=== PATIENT | female | born 1975 | race Caucasian/White ===

== ENCOUNTER 2018-04-04 17:55 | Emergency (ER) | payer OTHER, MEDICAID, SELFPAY ==
[2018-04-04 18:00] VITALS: PULSE 138; RESP 2; TEMP 37.4; O2SAT 66
[2018-04-04 18:16] VITALS: BP 117/76; PULSE 101
[2018-04-04] MEDS: cloNIDine 0.1 MG TABLET 0.2 MG PO (18:16)
[2018-04-04] MEDS: NALOXONE 1 MG/ML SYRINGE 4 MG IV (18:16)
[2018-04-04] MEDS: NALOXONE 0.4 MG/ML VIAL NASAL (18:16)
--- NOTE | 2018-04-04 18:16 | ED_ITS ---
HPI - Overdose General Chief Complaint: Unresponsive Stated Complaint: POSSIBLE OD Time Seen by Provider: 04/04/18 18:12 Mode of arrival: wheelchair Limitations: physical limitation History of Present Illness HPI Narrative: patient is a 43-year-old female dropped off by friends at the door with decreased responsiveness and not breathing. Known Heroin user. she responds to of 4 mg of IV Narcan. Initially nasal Narcan was tried with minimal success. Now awake and alert. Denies any intentional overdose. She actually is set to go start Suboxone treatment tomorrow. She denies using any more than usual. She is grateful and appreciative and cooperative. No complaints at this time. MD complaint: accidental overdose Related Data Previous Rx's Medication Instructions Recorded clonidine HCl 0.1 mg PO BID PRN #10 tab 04/04/18 ondansetron HCl [Zofran] 4 mg PO Q6-8H PRN #10 tab 04/04/18 Allergies Allergy/AdvReac Type Severity Reaction Status Date / Time No Known Drug Allergies Allergy Verified 04/04/18 18:11 Review of Systems Review of Systems All systems reviewed & are unremarkable except as noted in HPI and below Constitutional Denies chills, Denies fever(s), Denies lethargy and Denies weakness Cardiovascular Denies chest pain, Denies irregular heart rhythm, Denies lightheadedness, Denies palpitations, Denies dyspnea, Denies dyspnea on exertion and Denies orthopnea Respiratory Denies cough, Denies dyspnea, Denies dyspnea on exertion and Denies wheezing Gastrointestinal Gastrointestinal: Reports nausea Genitourinary Denies hematuria, Denies flank pain, Denies urinary incontinence and Denies urinary urgency Musculoskeletal Denies back pain, Denies muscle weakness, Denies numbness and Denies tingling Neurologic Denies numbness, Denies tingling and Denies weakness Psychiatric Denies suicidal ideation Endocrine Denies palpitations Allergic/Immunologic Denies wheezing [facility] Medical History Heroin abuse (Acute) Social History substance use type: heroin and IV drugs Exam Initial Vital Signs Initial Vital Signs: Vital Signs Temperature 99.4 F 04/04/18 18:00 Pulse Rate 138 H 04/04/18 18:00 Respiratory Rate 2 L 04/04/18 18:00 Pulse Oximetry 66 L 04/04/18 18:00 Const General: ill appearing Nutritional Appearance: average body habitus Other: not responsive to pain HENMT Head: normal to inspection and normocephalic Eyes Pupils: pinpoint bilaterally Neck Neck: normal visual inspection Chest Chest: normal inspection of the chest Resp Effort & Inspection: decreased respiratory effort and not labored Auscultation: clear to auscultation bilaterally Skin General: No pallor Neuro General: obtunded Pupils: Pinpoint: bilateral Other: decreased gag reflex minimal responsive to pain Extrem General: normal to inspection Right upper extremity: normal to inspection Left upper extremity: normal to inspection Left lower extremity: normal to inspection Course Orders Ordered: Discontinued Medications Clonidine HCl (Catapres) 0.2 mg PO NOW ONE Stop: 04/04/18 18:14 Last Admin: 04/04/18 18:16 Dose: 0.2 mg Sodium Chloride (Normal Saline 0.9%) 1,000 mls @ 1,000 mls/hr IV CONT SILVANO Last Infusion: 04/04/18 20:00 Dose: 0 mls/hr Admin: 04/04/18 19:03 Dose: 1,000 mls/hr Sodium Chloride (Normal Saline 0.9%) 1,000 mls @ 1,000 mls/hr IV BOLUS ONE Stop: 04/04/18 19:13 Last Infusion: 04/04/18 19:04 Dose: 1,000 mls/hr Infusion: 04/04/18 19:03 Dose: 0 mls/hr Admin: 04/04/18 18:17 Dose: 1,000 mls/hr Naloxone HCl (Narcan) 0.4 mg NASAL NOW ONE Stop: 04/04/18 18:13 Last Admin: 04/04/18 18:16 Dose: 0.4 mg Naloxone HCl (Narcan) 4 mg IV NOW ONE Stop: 04/04/18 18:13 Last Admin: 04/04/18 18:16 Dose: 4 mg Ondansetron HCl (Zofran) 4 mg IV NOW ONE Stop: 04/04/18 18:14 Last Admin: 04/04/18 18:17 Dose: 4 mg MDM - Overdose Differential Diagnosis Likely drug overdose Medical Records Attestation: I reviewed the patient's medical records. Lab Data Attestation: I reviewed the patient's lab results. Result diagrams: 04/04/18 18:20 04/04/18 18:20 Lab Results 07/23/18 07/23/18 07/23/18 Range/Units 16:35 18:20 18:20 WBC 12.7 H (4.5-11.0) X10^3/uL RBC 4.68 (4.0-5.2) X10^6/uL Hgb 13.5 (12.0-16.0) g/dL Hct 40.7 (36-46) % MCV 87.0 (80-100) fL MCH 28.8 (26-34) PG MCHC 33.1 (30-36) % RDW 14.2 (11.6-14.8) % Plt Count 378 (150-400) X10^3/uL Neut % (Auto) 45.4 L (50-75) % Lymph % (Auto) 37.3 (25-40) % Mcclain % (Auto) 14.0 (3-14) % Eos % (Auto) 2.5 (2-4) % Baso % (Auto) 0.8 (0-2) % Neut # (Auto) 5700 (2406-7084) /uL Sodium 144 (137-145) mmol/L Potassium 4.2 (3.4-5.1) mmol/L Chloride 106 (98-107) mmol/L Carbon Dioxide 27 (22-32) mmol/L BUN 18 H (7-17) mg/dL Creatinine 0.70 (0.52-1.04) mg/dL Estimated GFR > 60.0 (>60) mL/min BUN/Creatinine Ratio 25.7 H (6-22) Glucose 185 H (70-100) mg/dL Lactate 1.3 (0.7-2.1) mmol/L Calcium 9.0 (8.4-10.2) mg/dL Total Bilirubin 0.7 (0.2-1.3) mg/dL Conjugated Bilirubin 0.0 (0.0-0.3) md/dL Unconjugated Bilirubin 0.3 (0.0-1.1) mg/dL AST 39 H (14-36) IU/L ALT 28 (9-52) IU/L Alkaline Phosphatase 70 (38-126) U/L Total Protein 6.9 (6.3-8.2) g/dL Albumin 3.9 (3.5-5.0) g/dL Globulin 3.0 (1.7-4.1) g/dL Albumin/Globulin Ratio 1.3 (1.0-2.8) Salicylates < 1.0 (<20) mg/dL Acetaminophen < 10 L (10-30) ug/mL Ethyl Alcohol < 10 mg/dL MDM Narrative Medical decision making narrative: patient initially had reaction to Narcan becoming very anxious diaphoretic and tachycardic. She is given Zofran and clonidine which does help significantly. She is watched in the ED for 2 and 0.5 hr no respiratory depression. Mother is at bedside. She is scheduled to start Suboxone tomorrow. Discharge Plan Departure Patient Disposition: Home, Self-Care Clinical Impression: Opioid overdose Discharge Date/Time: 04/04/18 20:22 Interventions: ED Discharge Assessment Last Done: 04/04/18 20:21 Instructions: DI for Drug Overdose in Adults Activity Restrictions/Additional Instructions: *You have been diagnosed with accidental overdose *What to do: stop using Heroin *Continue to take medications as directed - clonidine twice a day if needed for anxiety and withdrawal symptoms - Zofran every 6-8 hours if needed for nausea vomiting *Follow up with your primary care provider in 2-3 days, go to clinic as previously arranged tomorrow *Return to ER if you should have any new, worsening or concerning symptoms Prescriptions: New clonidine HCl 0.1 mg tablet 0.1 mg PO BID PRN (Reason: anxiety) Qty: 10 RF: 0 ondansetron HCl [Zofran] 4 mg tablet 4 mg PO Q6-8H PRN (Reason: nausea and vomiting) Qty: 10 RF: 0 Referrals: [facility] [Outside] [facility] [Outside]
[2018-04-04] MEDS: ONDANSETRON 4 MG/2 ML INJ IV (18:17)
[2018-04-04] MEDS: SODIUM CHLORIDE 0.9% 1,000 ML 1000 ML IV ×2 (18:17→19:03)
[2018-04-04 18:28] LABS: Add Manual Diff / Slide Review NO; Basophils Percent Auto 0.8 % (0-2); Eosinophils Percent Auto 2.5 % (2-4); Hematocrit 40.7 % (36-46); Hemoglobin 13.5 g/dL (12.0-16.0); Lymphocytes Percent Auto 37.3 % (25-40); Mean Corpuscular HGB Conc 33.1 % (30-36); Mean Corpuscular Hemoglobin 28.8 PG (26-34); Neutrophils Absolute Auto 5700 /uL (3000-5900); Neutrophils Percent Auto 45.4 % (50-75); Platelet Count 378 X10^3/uL (150-400); Red Blood Cell Count 4.68 X10^6/uL (4.0-5.2); Red Cell Distribution Width 14.2 % (11.6-14.8); White Blood Cell Count 12.7 X10^3/uL (4.5-11.0)
[2018-04-04 18:33] LABS: Acetaminophen < 10 ug/mL (10-30); Alanine Aminotransferase 28 IU/L (9-52); Albumin 3.9 g/dL (3.5-5.0); Albumin Globulin Ratio 1.3 (1.0-2.8); Alkaline Phosphatase 70 U/L (38-126); Aspartate Aminotransferase 39 IU/L (14-36); BUN Creatinine Ratio 25.7 (6-22); Bilirubin Total 0.7 mg/dL (0.2-1.3); Bilirubin Unconjugated 0.3 mg/dL (0.0-1.1); Blood Urea Nitrogen 18 mg/dL (7-17); Carbon Dioxide 27 mmol/L (22-32); Chloride 106 mmol/L (98-107); Estimated Glomerular Filt Rate > 60.0 mL/min (>60); Ethanol (ETOH) < 10 mg/dL; Glucose 185 mg/dL (70-100); HEMOLYSIS 15 (0-50); Potassium 4.2 mmol/L (3.4-5.1); Sodium 144 mmol/L (137-145); Total Protein 6.9 g/dL (6.3-8.2)
[2018-04-04 18:43] LABS: Salicylate < 1.0 mg/dL (<20)
[2018-04-04 18:51] VITALS: BP 109/76; PULSE 86; RESP 18; O2SAT 99
[2018-04-04 18:55] LABS: Lactate (Lactic Acid) 1.3 mmol/L (0.7-2.1)
[2018-04-04 20:07] VITALS: BP 100/53; PULSE 87; RESP 22; O2SAT 100
--- NOTE | 2018-04-04 20:11 | PC.NURSE ---
PT GIVEN INSTRUCTIONS NOT TO HAVE ANYTHING BY MOUTH UNTIL CLEARED BY PROVIDER TO DO SO. PT EXPLAINED WE ARE WAITING ON LAB RESULTS TO COME BACK. PT REQUESTED SPONGE TO WET MOUTH. PT GIVEN SPONGE AND CUP WITH WATER. PT DRANK WATER FROM CUP. PROVIDER AWARE.
== END 2018-04-04 20:22 | disposition home or self-care (01) ==
PROVIDERS: Emergency Provider Emergency Medicine
DX: T40.2X1A Poisoning by other opioids, accidental (unintentional), initial encounter (principal)
CPT/HCPCS: 36415; 36591; 80053; 80076; 80320; 80329; 83605; 85025; 96361; 96374; 96375; 99285; G0480; J2310; J2405

== ENCOUNTER 2018-04-08 10:42 | Emergency (ER) | payer OTHER, MEDICAID, SELFPAY ==
[2018-04-08 10:55] VITALS: BP 127/85; PULSE 77; RESP 20; TEMP 37.2; O2SAT 97; BMI 28.8
--- NOTE | 2018-04-08 11:19 | ED_ITS ---
HPI - Nausea/Vomiting/Diarrhea General Chief complaint: Nausea/Vomiting/Diarrhea Stated complaint: OPIOD OD FEW DAYS AGO, SICK SINCE THEN Time Seen by Provider: 04/08/18 10:57 Source: patient Mode of arrival: ambulatory Limitations: no limitations History of Present Illness HPI Narrative: Patient is a 43-year-old female here for evaluation of upper respiratory symptoms, sinus congestion and cough for the past several days. She states that all this started after she had an overdose episode with heroin and received ?massive doses ?of intranasal Narcan. She states since then she has had sinus congestion and a cough and wheezing. The chest pain she describes is from the coughing. Also has had some nausea and vomiting. Does have an albuterol inhaler at home which she has been using with some improvement. Related Data Home Medications Medication Instructions Recorded Confirmed Mucinex 1 tab PO .ONCE 04/08/18 04/08/18 albuterol sulfate [ProAir HFA] 1 puff INHALATION Q6H PRN 04/08/18 04/08/18 clobetasol 1 applic TOPICAL DAILY 04/08/18 04/08/18 clonidine HCl 1 tab PO BID PRN 04/08/18 04/08/18 ondansetron HCl 1 tab PO Q6-8H PRN 04/08/18 04/08/18 sertraline 150 mg PO QAM 04/08/18 04/08/18 spironolactone 50 mg PO DAILY 04/08/18 04/08/18 Previous Rx's Medication Instructions Recorded albuterol sulfate 1 puff INHALATION Q4-6H PRN #6.7 04/08/18 gram Allergies Allergy/AdvReac Type Severity Reaction Status Date / Time adhesive Allergy Unknown Unverified 12/22/17 12:55 latex Allergy Unknown Unverified 12/22/17 12:55 Sulfa (Sulfonamide Allergy Unknown Unverified 12/22/17 12:55 Antibiotics) METAL Allergy Unknown Uncoded 12/22/17 12:55 Review of Systems Constitutional Denies fever(s) ENT Ears, Nose, Mouth, and Throat: Denies vertigo and Denies dizziness Cardiovascular Denies chest pain, Denies palpitations and Reports dyspnea Respiratory Denies change in phlegm color, Reports cough, Reports pain on inspiration, Reports dyspnea and Reports wheezing Gastrointestinal Gastrointestinal: Denies abdominal pain, Denies dyspepsia, Denies diarrhea, Reports nausea and Reports vomiting Genitourinary Denies dysuria Musculoskeletal Denies myalgias and Denies arthralgias Integumentary/Breasts Denies lesions and Denies rash Neurologic Denies confusion, Denies vertigo and Denies dizziness Psychiatric Denies confusion Endocrine Denies palpitations Hematologic/Lymphatic Denies easy bleeding and Denies easy bruising Allergic/Immunologic Reports wheezing PFSH Surgical History History of cardiac radiofrequency ablation (RFA) Status post hysterectomy Status post knee surgery Social History Smoking Status: Current every day smoker Comment: Reviewed patient's past medical history surgical history family history and social history Exam Initial Vital Signs Initial Vital Signs: Vital Signs Temperature 98.9 F 04/08/18 10:55 Pulse Rate 77 04/08/18 10:55 Respiratory Rate 20 04/08/18 10:55 Blood Pressure 127/85 H 04/08/18 10:55 Pulse Oximetry 97 04/08/18 10:55 Const General: cooperative, healthy appearing, comfortable, well developed, well groomed and No acute distress Orientation: alert, awake and oriented x3 HENMT Head: normal to inspection, normocephalic and atraumatic Resp Effort & Inspection: normal respiratory effort Other: Coarse breath sounds bilaterally however left greater than right with wheezing and crackles Cardio Rate: regular rate Rhythm: regular rhythm Pulses: radial pulses present GI Inspection: normal to inspection and non-distended Palpation: soft, No firm and No tender Skin Lesions: no lesions Rashes: no rashes Neuro General: alert, awake and oriented x3 Cognition: normal cognition Speech: speech normal Extrem General: normal to inspection Psych Appearance: grossly normal and well kempt Course Orders Ordered: ED Orders 04/08/18 11:10 EKG-12 Lead Stat Vital Signs - 8 hr 04/08/18 10:55 Temperature 98.9 F Pulse Rate 77 Respiratory Rate 20 Blood Pressure 127/85 H Pulse Oximetry 97 MDM - Nausea/Vomiting/Diarrhea Imaging Data Chest x-ray: Radiologist's impression: PROCEDURE: XR CHEST 2V INDICATIONS: Wheezing, shortness of breath TECHNIQUE: 2 views of the chest were acquired. COMPARISON: [facility], , CHEST 2 VIEW, 12/06/2010, 11:01. FINDINGS: Surgical changes and devices: None. Lungs and pleura: No pleural effusions or pneumothorax. Lungs are clear. Mediastinum: Mediastinal contours are normal. Heart size is normal. Bones and chest wall: No suspicious bony abnormalities. Soft tissues appear unremarkable. IMPRESSION: No acute cardiopulmonary disease process. Dictated by: Patience Aguirre MD, PhD on 04/08/2018 at 13:24 Approved by: Patience Aguirre MD, PhD on 04/08/2018 at 13:25 ECG Data Attestation: I personally reviewed and interpreted this ECG as follows: Prior ECG tracings: not available for review Interpretation: Sinus rhythm Ventricular rate is 74 Normal QRS no QTC [address] T wave changes MDM Narrative Medical decision making narrative: Chest x-ray is unremarkable. No signs of pneumonia. I do suspect that she has upper respiratory symptoms may be related to the Narcan that she received intranasally. No indication for antibiotics. Chest x-ray shows no signs pulmonary edema. Will treat symptomatically. She was given return precautions. She expressed understanding and agreement with plan Discharge Plan Departure Patient Disposition: Home, Self-Care Clinical Impression: Bronchitis Discharge Date/Time: 04/08/18 13:40 Interventions: ED Discharge Assessment Last Done: 04/08/18 13:39 Instructions: Acute Bronchitis Activity Restrictions/Additional Instructions: Take all the medications as directed. Call your primary care doctor for a follow-up. Return to the emergency department for any new or worsening symptoms. Recommend that you take a over the counter decongestants such as Claritin or Leia or Zyrtec like we discussed. Prescriptions: New albuterol sulfate 90 mcg/actuation HFA aerosol inhaler 1 puff INHALATION Q4-6H PRN (Reason: shortness of breath or wheezing) Qty: 6.7 RF: 0 No Action clonidine HCl 0.1 mg tablet 1 tab PO BID PRN (Reason: Anxiety) RF: 0 spironolactone 25 mg tablet 50 mg PO DAILY RF: 0 sertraline 50 mg tablet 150 mg PO QAM RF: 0 Mucinex 1 tab PO .ONCE RF: 0 ondansetron HCl 4 mg tablet 1 tab PO Q6-8H PRN (Reason: Nausea And Vomiting) RF: 0 clobetasol 0.05 % ointment 1 applic Topical DAILY RF: 0 albuterol sulfate [ProAir HFA] 90 mcg/actuation HFA aerosol inhaler 1 puff Inhalation Q6H PRN (Reason: Wheezing) RF: 0
--- NOTE | 2018-04-08 13:01 | DI.RAD.S_ITS ---
PROCEDURE: XR CHEST 2V INDICATIONS: Wheezing, shortness of breath TECHNIQUE: 2 views of the chest were acquired. COMPARISON: [facility], , CHEST 2 VIEW, 12/06/2010, 11:01. FINDINGS: Surgical changes and devices: None. Lungs and pleura: No pleural effusions or pneumothorax. Lungs are clear. Mediastinum: Mediastinal contours are normal. Heart size is normal. Bones and chest wall: No suspicious bony abnormalities. Soft tissues appear unremarkable. IMPRESSION: No acute cardiopulmonary disease process. Dictated by: Patience Aguirre MD, PhD on 04/08/2018 at 13:24 Approved by: Patience Aguirre MD, PhD on 04/08/2018 at 13:25
[2018-04-08 13:39] VITALS: BP 115/71; PULSE 73; RESP 15; O2SAT 100
== END 2018-04-08 13:40 | disposition home or self-care (01) ==
PROVIDERS: Emergency Provider Emergency Medicine
DX: J40 Bronchitis, not specified as acute or chronic (principal)
CPT/HCPCS: 71046; 93005; 99282; 99284

== ENCOUNTER 2019-08-15 20:43 | Emergency (ER) | payer OTHER, MEDICAID, SELFPAY ==
[2019-08-15 20:50] VITALS: BP 108/63; PULSE 93; RESP 15; TEMP 36.4; O2SAT 93; BMI 30.4
--- NOTE | 2019-08-15 21:26 | ED.RECABL ---
HPI - Recheck/Abnormal Lab/Rx General Chief Complaint: Recheck/Abnormal Lab/Rx Stated Complaint: NEEDS WORK RELEASE Time Seen by Provider: 08/15/19 21:26 Source: patient Mode of arrival: Family Vehicle Limitations: no limitations History of Present Illness HPI narrative: 44-year-old female comes with complaint of 5 days of nasal congestion, cough which has been improved patient states she had a fever a couple days ago but none recently. She denies any shortness of breath. No chest pain. She denies any other GI or urinary symptoms. 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 She denies any other concerns and is here requesting a work note so she may return to work today. Related Data Home Medications Medication Instructions Recorded Confirmed Mucinex 1 tab PO .ONCE 04/08/18 04/08/18 albuterol sulfate [ProAir HFA] 1 puff INHALATION Q6H PRN 04/08/18 04/08/18 clobetasol 1 applic TOPICAL DAILY 04/08/18 04/08/18 clonidine HCl 1 tab PO BID PRN 04/08/18 04/08/18 ondansetron HCl 1 tab PO Q6-8H PRN 04/08/18 04/08/18 sertraline 150 mg PO QAM 04/08/18 04/08/18 spironolactone 50 mg PO DAILY 04/08/18 04/08/18 Previous Rx's Medication Instructions Recorded clonidine HCl 0.1 mg PO BID PRN #10 tab 04/04/18 ondansetron HCl [Zofran] 4 mg PO Q6-8H PRN #10 tab 04/04/18 albuterol sulfate 1 puff INHALATION Q4-6H PRN #6.7 04/08/18 gram Allergies Allergy/AdvReac Type Severity Reaction Status Date / Time adhesive Allergy Unknown Unverified 12/22/17 12:55 latex Allergy Unknown Unverified 12/22/17 12:55 Sulfa (Sulfonamide Allergy Unknown Unverified 12/22/17 12:55 Antibiotics) METAL Allergy Unknown Uncoded 12/22/17 12:55 Review of Systems Review of Systems ROS Unobtainable: All systems reviewed & are unremarkable except as noted in HPI and below Patient History Medical History Heroin abuse (Acute) Surgical History History of cardiac radiofrequency ablation (RFA) Status post hysterectomy Status post knee surgery Social History Smoking Status: Current every day smoker substance use type: heroin and IV drugs Substance Use Type: former substance user and heroin Exam Narrative Exam Narrative: GEN: well nourished, well appearing female, alert and oriented x 3, patient appears to be in no acute distress. HEENT: Atraumatic, pupils are equal round reactive to light, extraocular movements are intact, nares are clear. HEART: Regular rate and rhythm without murmur, clicks, rubs.es LUNGS:Lungs clear to auscultation, no wheezes, rales, crackles, chest moves symmetrically ABD:bowel sounds normal, soft, non-tender, no guarding, rebound, rigidity, no masses noted, no hepatosplenomegaly MSCL: Non-tender, no muscle atrophy, full range of motion, normal gait NEURO:CN 2-12 intact, sensation normal Initial Vital Signs Initial Vital Signs: Vital Signs Temperature 97.6 F 08/15/19 20:50 Pulse Rate 93 H 08/15/19 20:50 Respiratory Rate 15 08/15/19 20:50 Blood Pressure 108/63 08/15/19 20:50 Pulse Oximetry 93 08/15/19 20:50 Course Vital Signs Vital signs: Vital Signs - 8 hr 08/15/19 20:50 Temperature 97.6 F Pulse Rate 93 H Respiratory Rate 15 Blood Pressure 108/63 Pulse Oximetry 93 Discharge Plan Departure Patient Disposition: Home Clinical Impression: URI (upper respiratory infection) Discharge Date/Time: 08/15/19 21:38 Instructions: DI for Viral Upper Respiratory Infection -- Adult Activity Restrictions/Additional Instructions: Follow-up with primary care if you have any additional concerns. Prescriptions: No Action clonidine HCl 0.1 mg tablet 0.1 mg PO BID PRN (Reason: anxiety) Qty: 10 RF: 0 ondansetron HCl [Zofran] 4 mg tablet 4 mg PO Q6-8H PRN (Reason: nausea and vomiting) Qty: 10 RF: 0 clonidine HCl 0.1 mg tablet 1 tab PO BID PRN (Reason: Anxiety) RF: 0 spironolactone 25 mg tablet 50 mg PO DAILY RF: 0 sertraline 50 mg tablet 150 mg PO QAM RF: 0 Mucinex 1 tab PO .ONCE RF: 0 ondansetron HCl 4 mg tablet 1 tab PO Q6-8H PRN (Reason: Nausea And Vomiting) RF: 0 clobetasol 0.05 % ointment 1 applic Topical DAILY RF: 0 albuterol sulfate [ProAir HFA] 90 mcg/actuation HFA aerosol inhaler 1 puff Inhalation Q6H PRN (Reason: Wheezing) RF: 0 albuterol sulfate 90 mcg/actuation HFA aerosol inhaler 1 puff INHALATION Q4-6H PRN (Reason: shortness of breath or wheezing) Qty: 6.7 RF: 0 Stand Alone Forms: Work Release Note
== END 2019-08-15 21:38 | disposition home or self-care (01) ==
PROVIDERS: Emergency Provider Emergency Medicine
DX: J06.9 Acute upper respiratory infection, unspecified (principal)
CPT/HCPCS: 99282

== ENCOUNTER 2019-08-23 14:36 | Emergency (ER) | payer OTHER, MEDICAID, SELFPAY ==
[2019-08-23 14:50] VITALS: BP 122/68; PULSE 88; RESP 20; TEMP 37.2; O2SAT 98
[2019-08-23 17:36] VITALS: BP 105/66; PULSE 78; RESP 18; O2SAT 100
[2019-08-23 18:00] VITALS: BP 100/59; PULSE 80; RESP 17; O2SAT 100
--- NOTE | 2019-08-23 18:15 | PC.NURSE ---
Patient states abscess to left antecubital area is draining.
--- NOTE | 2019-08-23 18:28 | ED_ITS ---
HPI - Skin/Abscess/Foreign Bdy General Chief complaint: Skin/Abscess/Foreign Body Stated complaint: thinks she has an abcess her left elbow Time Seen by Provider: 08/23/19 18:03 Source: patient Mode of arrival: Ambulatory Limitations: no limitations History of Present Illness HPI narrative: 44-year-old female. Is an IV drug user. Here for a abscess in her left elbow. She states that she last inject herself in this area several weeks ago. She states that is only been over the past couple days and she is noticed some redness and pain and swelling in this area. She stated that it started to spontaneously drain after she arrived here in the emergency department while she was waiting to be seen. Has never had any abscesses in the past that needed drained. She is up-to-date on her tetanus. Related Data Home Medications Medication Instructions Recorded Confirmed Mucinex 1 tab PO .ONCE 04/08/18 04/08/18 albuterol sulfate [ProAir HFA] 1 puff INHALATION Q6H PRN 04/08/18 04/08/18 clobetasol 1 applic TOPICAL DAILY 04/08/18 04/08/18 clonidine HCl 1 tab PO BID PRN 04/08/18 04/08/18 ondansetron HCl 1 tab PO Q6-8H PRN 04/08/18 04/08/18 sertraline 150 mg PO QAM 04/08/18 04/08/18 spironolactone 50 mg PO DAILY 04/08/18 04/08/18 Previous Rx's Medication Instructions Recorded clonidine HCl 0.1 mg PO BID PRN #10 tab 04/04/18 ondansetron HCl [Zofran] 4 mg PO Q6-8H PRN #10 tab 04/04/18 albuterol sulfate 1 puff INHALATION Q4-6H PRN #6.7 04/08/18 gram doxycycline hyclate 100 mg PO BID 7 Days #14 tab 08/23/19 Allergies Allergy/AdvReac Type Severity Reaction Status Date / Time adhesive Allergy Unknown Verified 08/23/19 18:33 latex Allergy Unknown Verified 08/23/19 18:33 Sulfa (Sulfonamide Allergy Unknown Verified 08/23/19 18:33 Antibiotics) METAL Allergy Unknown Uncoded 08/23/19 18:33 Review of Systems Constitutional Constitutional: Denies fever(s) Musculoskeletal Musculoskeletal: Denies myalgias, Reports arthralgias (Left elbow) and Denies tingling Integumentary/Breasts Comments: Drainage from the left elbow Neurologic Neurologic: Denies tingling and Denies paresthesias Hematologic/Lymphatic Hematologic/Lymphatic: Denies easy bleeding and Denies easy bruising Allergic/Immunologic Allergic/Immunologic: Denies urticaria Patient History Medical History (Updated 08/23/19 @ 23:25 by Abhishek Kerr DO) Acquired hypothyroidism (07/24/16) Anxiety (Inactive) Chronic pain syndrome (02/11/17) Depression (07/07/16) Heroin abuse (Acute) History of malignant neoplasm of cervix (07/07/16) History of squamous cell carcinoma (07/07/16) Migraine without aura and without status migrainosus, not intractable (01/10/16) Gqjzo-Anhlcglhr-Jfvzb (WPW) syndrome, 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) Surgical History History of cardiac radiofrequency ablation (RFA) Status post hysterectomy Status post knee surgery Social History Smoking Status: Current every day smoker substance use type: heroin and IV drugs Smoking Status: Current every day smoker Substance Use Type: former substance user and heroin Exam Initial Vital Signs Initial Vital Signs: Vital Signs Temperature 98.9 F 08/23/19 14:50 Pulse Rate 88 08/23/19 14:50 Respiratory Rate 20 08/23/19 14:50 Blood Pressure 122/68 08/23/19 14:50 Pulse Oximetry 98 08/23/19 14:50 Const General: cooperative, comfortable, well developed and well groomed Orientation: alert, awake and oriented x3 HENMT Head: normal to inspection and normocephalic Resp Effort & Inspection: normal respiratory effort Cardio Rate: regular rate Skin Other: Patient with a 5 cm area of redness and induration on the antecubital area of the left elbow. There is a 1/2 cm open area that is draining blood and purulent material. Just proximal to this on the distal portion of the biceps there is a small area of induration and another area along the medial epicondyle. There's no redness that extends up the arm. Neuro Sensory Exam: no sensory deficits noted Extrem Other: Patient does have some limited range of motion of the left elbow however this is secondary to swelling on the volar aspect just proximal to the elbow joint. Psych Appearance: grossly normal and well kempt Course Orders Ordered: Discontinued Medications Doxycycline Hyclate (Vibramycin) 100 mg PO NOW ONE Stop: 08/23/19 18:29 Last Admin: 08/23/19 18:34 Dose: 100 mg Documented by: KIM Vital Signs Vital signs: Vital Signs - 8 hr 08/23/19 17:36 08/23/19 18:00 08/23/19 18:47 Pulse Rate 78 80 85 Respiratory Rate 18 17 16 Blood Pressure 102/68 Blood Pressure [Right Arm] 105/66 100/59 L Pulse Oximetry 100 100 99 MDM - Skin/Abscess/Foreign Bdy MDM Narrative Medical decision making narrative: Patient with spontaneous draining abscess in the left AC joint. Bedside ultrasound does not show any other areas of abscess around the left elbow region. I do believe that the fullness in this area is induration. I feel that the already draining abscess is open enough that no further incision is needed. I did probe the area with a cotton tip applicator. No culture was obtained. Given the area of induration around the elbow I will start the patient on antibiotics. She was given a 1st dose here and a prescription for the remainder. I've low suspicion for septic joint based on her history and physical. Patient was given return precautions and follow-up instructions. I do not feel the patient needs admitted to the hospital. She expressed understanding and agreement with plan. Discharge Plan Departure Patient Disposition: Home Clinical Impression: Abscess Discharge Date/Time: 08/23/19 18:48 Instructions: DI for Skin Abscess Activity Restrictions/Additional Instructions: You can shower like normal. Keep the area covered with a bandage just to keep your clothes and sheets clean. Your antibiotic was transmitted to [facility] here in [place] return to the emergency department for any new or worsening symptoms Prescriptions: New doxycycline hyclate 100 mg tablet 100 mg PO BID 7 Days Qty: 14 RF: 0 No Action clonidine HCl 0.1 mg tablet 0.1 mg PO BID PRN (Reason: anxiety) Qty: 10 RF: 0 ondansetron HCl [Zofran] 4 mg tablet 4 mg PO Q6-8H PRN (Reason: nausea and vomiting) Qty: 10 RF: 0 clonidine HCl 0.1 mg tablet 1 tab PO BID PRN (Reason: Anxiety) RF: 0 spironolactone 25 mg tablet 50 mg PO DAILY RF: 0 sertraline 50 mg tablet 150 mg PO QAM RF: 0 Mucinex 1 tab PO .ONCE RF: 0 ondansetron HCl 4 mg tablet 1 tab PO Q6-8H PRN (Reason: Nausea And Vomiting) RF: 0 clobetasol 0.05 % ointment 1 applic Topical DAILY RF: 0 albuterol sulfate [ProAir HFA] 90 mcg/actuation HFA aerosol inhaler 1 puff Inhalation Q6H PRN (Reason: Wheezing) RF: 0 albuterol sulfate 90 mcg/actuation HFA aerosol inhaler 1 puff INHALATION Q4-6H PRN (Reason: shortness of breath or wheezing) Qty: 6.7 RF: 0 Stand Alone Forms: Work Release Note
[2019-08-23] MEDS: DOXYCYCLINE HYCLATE 100 MG TABLET PO (18:34)
[2019-08-23 18:47] VITALS: BP 102/68; PULSE 85; RESP 16; O2SAT 99
== END 2019-08-23 18:48 | disposition home or self-care (01) ==
PROVIDERS: Emergency Provider Emergency Medicine
DX: L02.414 Cutaneous abscess of left upper limb (principal); F19.10 Other psychoactive substance abuse, uncomplicated
CPT/HCPCS: 99283

== ENCOUNTER 2020-04-08 16:52 | Inpatient (IN) | payer OTHER, MEDICAID, SELFPAY ==
[2020-04-08] VITALS (17 sets, daily range): BP systolic 83–120; BP diastolic 51–93; PULSE 71–124; RESP 10–22; TEMP 36.3–37.3; O2SAT 93–99
--- NOTE | 2020-04-08 17:26 | DI.CT.S_ITS ---
PROCEDURE: CT SOFT TISSUE NECK W CON INDICATIONS: left IJ abcess TECHNIQUE: After the administration of intravenous contrast, 3.0 mm axial sections acquired from the sella to the aortic arch. Additional oblique axial 3.0 mm sections acquired through the pharynx. 3 mm thick coronal and sagittal reformats were generated. For radiation dose reduction, the following was used: automated exposure control. COMPARISON: [facility], CT, SOFT TISSUE NECK W CONTRAST, 07/04/2017, 18:24. FINDINGS: Image quality: Excellent. Lymph nodes: No enlarged lymph nodes seen throughout the neck. Vessels: Visualized vasculature appears patent. Carotid arteries and jugular veins are patent. Neck spaces: The oropharynx, nasopharynx, and pharynx demonstrate no mucosal lesions. The vocal cords, false vocal cords, pyriform sinuses, epiglottis, vallecula, and tongue base all appear normal. Phlegm a charlene changes noted in the anterior-lateral left soft tissues of the neck extending from the clavicle to the hyoid bone compatible with cellulitis. Multiple small fluid collections with peripheral enhancement ranging in size from 2-6 millimeters is noted in the region of cellulitis compatible with developing abscesses. Tiny cluster of air locules noted in the right knee and lateral neck soft tissues situated between the right sternocleidomastoid muscle in the right internal jugular vein.. Glands: The parotid and submandibular glands appear normal. Thyroid gland is within normal limits . Miscellaneous: Visualized brain and orbits appear normal. Lung apices appear clear. Superficial soft tissues appear normal. Bones: No suspicious bony lesions. Visualized sinuses and mastoids appear unremarkable. IMPRESSION: 1. Extensive left anterolateral cellulitis extending from the left clavicle to the left hyoid bone. 2. Multiple small fluid collections within the anterolateral left neck cellulitis range in size from 2-6 millimeters compatible with small abscesses. Dictated by: Patience Aguirre MD, PhD on 04/08/2020 at 18:24 Approved by: Patience Aguirre MD, PhD on 04/08/2020 at 18:28
--- NOTE | 2020-04-08 17:32 | PC.NURSE ---
Lab at bedside attempting to draw remaining labs.
[2020-04-08] MEDS: SODIUM CHLORIDE 0.9% 1,000 ML 1000 ML IV (17:44)
[2020-04-08 17:47] LABS: Add Manual Diff / Slide Review NO; Basophils Absolute Auto 100 /uL (0-100); Basophils Percent Auto 0.7 % (0-2); Eosinophils Absolute Auto 400 /uL (0-450); Eosinophils Percent Auto 4.1 % (2-4); Hematocrit 38.6 % (36-46); Hemoglobin 13.2 g/dL (12.0-16.0); Lymphocytes Absolute Auto 2400 /uL (1100-4500); Lymphocytes Percent Auto 24.6 % (25-40); Mean Corpuscular HGB Conc 34.2 % (30-36); Mean Corpuscular Hemoglobin 28.1 PG (26-34); Mean Corpuscular Volume 82.2 fL (80-100); Monocytes Absolute Auto 900 /uL (0-900); Monocytes Percent Auto 9.6 % (3-14); Neutrophils Absolute Auto 5900 /uL (1500-7000); Platelet Count 528 X10^3/uL (150-400); Red Cell Distribution Width 14.8 % (11.6-14.8); White Blood Cell Count 9.6 X10^3/uL (4.5-11.0)
[2020-04-08 17:52] LABS: Amorphous Sediment Urine 1+; Bacteria Urine Many (>30); Culture Indicated Urine Cult Not Indicated; RBC Urine 1-5/HPF (0-5/HPF); Squamous Epithelial Cell Urine 10-30 /HPF (0-5/HPF); WBC Urine 1-5/HPF (0-5/HPF)
[2020-04-08 17:53] LABS: Hyaline Casts Urine 1-5/LPF
[2020-04-08 17:59] LABS: Alanine Aminotransferase 102 IU/L (<35); Albumin 3.8 g/dL (3.5-5.0); Albumin Globulin Ratio 0.9 (1.0-2.8); Alkaline Phosphatase 100 U/L (38-126); Aspartate Aminotransferase 64 IU/L (14-36); BUN Creatinine Ratio 25.3 (6-22); Blood Urea Nitrogen 21 mg/dL (7-17); Carbon Dioxide 23 mmol/L (22-32); Chloride 97 mmol/L (98-107); Estimated Glomerular Filt Rate > 60.0 mL/min (>60); Globulin 4.2 g/dL (1.7-4.1); Glucose 103 mg/dL (70-100); HEMOLYSIS < 15 (0-50); Potassium 3.6 mmol/L (3.4-5.1); Sodium 130 mmol/L (137-145)
[2020-04-08 18:21] LABS: Procalcitonin < 0.05 ng/mL (<0.5)
--- NOTE | 2020-04-08 18:24 | ED.SKABFB ---
HPI - Skin/Abscess/Foreign Bdy General Chief complaint: Skin/Abscess/Foreign Body Stated complaint: LEFT SIDE OF NECK ABSCESS Time Seen by Provider: 04/08/20 17:07 Source: patient Mode of arrival: Ambulatory Limitations: no limitations History of Present Illness HPI narrative: 45-year-old female daily smoker with history of IV drug abuse presents with a chief complaint of a large, painful and spontaneously draining abscess in the left anterior neck. She states she remembers missing and attempt to inject about 2 weeks ago. She has had fever and chills and a bit of nausea. She has been expressing purulence drainage for the past 2 and half days and states that it is getting worse despite her attempt to drain it at home. She last ate many hours ago but had some clear liquid in the waiting room. She denies any known exposure to [place] it. Related Data Home Medications Medication Instructions Recorded Confirmed Mucinex 1 tab PO .ONCE 04/08/18 04/08/18 albuterol sulfate [ProAir HFA] 1 puff INHALATION Q6H PRN 04/08/18 04/08/18 clobetasol 1 applic TOPICAL DAILY 04/08/18 04/08/18 clonidine HCl 1 tab PO BID PRN 04/08/18 04/08/18 ondansetron HCl 1 tab PO Q6-8H PRN 04/08/18 04/08/18 sertraline 150 mg PO QAM 04/08/18 04/08/18 spironolactone 50 mg PO DAILY 04/08/18 04/08/18 Previous Rx's Medication Instructions Recorded clonidine HCl 0.1 mg PO BID PRN #10 tab 04/04/18 ondansetron HCl [Zofran] 4 mg PO Q6-8H PRN #10 tab 04/04/18 albuterol sulfate 1 puff INHALATION Q4-6H PRN #6.7 04/08/18 gram Allergies Allergy/AdvReac Type Severity Reaction Status Date / Time adhesive Allergy Unknown Verified 08/23/19 18:33 latex Allergy Unknown Verified 08/23/19 18:33 Sulfa (Sulfonamide Allergy Unknown Verified 08/23/19 18:33 Antibiotics) METAL Allergy Unknown Uncoded 08/23/19 18:33 Review of Systems Constitutional Constitutional: Reports chills, Denies fatigue, Reports fever(s), Denies frequent falls, Denies lethargy and Denies weakness Eyes Eyes: Denies change in vision, Denies eye discharge, Denies irritation and Denies loss of vision ENT Ears, Nose, Mouth, and Throat: Denies change in voice, Denies dizziness, Denies neck pain, Denies sore throat and Denies throat swelling Cardiovascular Cardiovascular: Denies chest pain, Denies irregular heart rhythm, Denies lightheadedness, Denies palpitations, Denies dyspnea, Denies dyspnea on exertion and Denies orthopnea Respiratory Respiratory: Denies cough, Denies dyspnea, Denies dyspnea on exertion and Denies wheezing Gastrointestinal Gastrointestinal: Denies abdominal pain, Denies change in bowel habits, Denies diarrhea, Reports nausea and Reports vomiting Musculoskeletal Musculoskeletal: Denies neck pain and Denies numbness Integumentary/Breasts Skin/Breast: Denies pruritus, Reports erythema, Denies rash, Reports skin pain, Reports skin swelling, Reports sores and Reports wounds Neurologic Neurologic: Denies behavioral changes, Denies confusion, Denies dizziness, Denies frequent falls, Denies loss of vision, Denies numbness and Denies weakness Psychiatric Psychiatric: Denies anxiety, Denies behavioral changes, Denies confusion, Denies depression, Denies homicidal ideation and Denies suicidal ideation Endocrine Endocrine: Denies fatigue, Denies flushing and Denies palpitations Hematologic/Lymphatic Hematologic/Lymphatic: Denies easy bruising Allergic/Immunologic Allergic/Immunologic: Denies urticaria, Denies throat swelling and Denies wheezing Patient History Medical History Acquired hypothyroidism (07/24/16) Anxiety (Inactive) Chronic pain syndrome (02/11/17) Depression (07/07/16) Heroin abuse (Acute) History of malignant neoplasm of cervix (07/07/16) History of squamous cell carcinoma (07/07/16) Migraine without aura and without status migrainosus, not intractable (01/10/16) Dgavl-Ewkcscdlb-Tajex (WPW) syndrome, 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 Well-nourished, well-developed patient, in mild distress. HEAD: Atraumatic. Normocephalic. EYES: Pupils equal round and reactive. Extraocular motions intact. No scleral icterus. No injection or drainage. ENT: Nose without bleeding, purulent drainage. Throat without erythema, tonsillar hypertrophy or exudate. Airway patent. NECK: Trachea midline. Left anterior neck with open wound and draining purulence with significant surrounding erythema, tenderness to palpation and some underlying fluctuance raising the suspicion of a deep space infection. Palpation results in the drainage of purulent fluid CARDIOVASCULAR: Regular rate and rhythm without murmurs, gallops, or rubs. RESPIRATORY: Clear to auscultation. Breath sounds equal bilaterally. No wheezes, rales, or rhonchi. GASTROINTESTINAL: Abdomen soft, non-tender, nondistended. EXTREMITIES: No edema or joint tenderness. BACK: Nontender without deformity or crepitance. No flank tenderness. NEURO: AOx3. SKIN: No rash or erythema of visible areas Initial Vital Signs Initial Vital Signs: Vital Signs Temperature 98.7 F 04/08/20 17:00 Pulse Rate 124 H 04/08/20 17:00 Respiratory Rate 22 04/08/20 17:00 Blood Pressure 120/93 H 04/08/20 17:00 Pulse Oximetry 98 04/08/20 17:00 Course Orders Ordered: ED Orders 04/08/20 17:26 CT soft tissue neck w con Stat 04/08/20 17:30 Blood Culture Stat Urine Microscopic Stat Wound Culture and Gram Stain Stat 04/08/20 17:39 Complete Blood Count AUTO DIFF Stat Comprehensive Metabolic Panel Stat Lactate (Lactic Acid) Stat Procalcitonin Stat Vancomycin HCl/Dextrose (Vancomycin) 1,500 mg in 300 mls @ 200 mls/hr IV NOW ONE Stop: 04/08/20 19:48 Last Admin: 04/08/20 18:35 Dose: 200 mls/hr Documented by: RHONA Discontinued Medications Sodium Chloride (Normal Saline 0.9%) 1,000 mls @ 1,000 mls/hr IV BOLUS ONE Stop: 04/08/20 18:06 Last Admin: 04/08/20 17:44 Dose: 1,000 mls/hr Documented by: KIM Consultations Consultation #1: call to Dr. Agee upon receipt of CT. He will come to evaluate the patient in the ED. Consultation #2: Cyndie to take patient to the OR when COVID comes back Vital Signs Vital signs: Vital Signs - 8 hr 04/08/20 17:00 04/08/20 17:46 04/08/20 18:00 Temperature 98.7 F Pulse Rate 124 H 95 H 90 Respiratory Rate 22 13 13 Blood Pressure 120/93 H 118/77 115/66 Pulse Oximetry 98 96 96 04/08/20 18:30 04/08/20 18:40 04/08/20 19:00 Temperature Pulse Rate 94 H 91 H 92 H Respiratory Rate 18 18 16 Blood Pressure 106/69 115/74 Pulse Oximetry 96 99 97 MDM - Skin/Abscess/Foreign Bdy Lab Data Result diagrams: 04/08/20 17:39 04/08/20 17:39 Labs: Lab Results 04/08/20 04/08/20 04/08/20 Range/Units 17:30 17:39 17:39 WBC 9.6 (4.5-11.0) X10^3/uL RBC 4.70 (4.0-5.2) X10^6/uL Hgb 13.2 (12.0-16.0) g/dL Hct 38.6 (36-46) % MCV 82.2 (80-100) fL MCH 28.1 (26-34) PG MCHC 34.2 (30-36) % RDW 14.8 (11.6-14.8) % Plt Count 528 H (150-400) X10^3/uL Neut % (Auto) 61.0 (50-75) % Lymph % (Auto) 24.6 L (25-40) % [place] % (Auto) 9.6 (3-14) % Eos % (Auto) 4.1 H (2-4) % Baso % (Auto) 0.7 (0-2) % Neut # (Auto) 5900 (2560-5583) /uL Lymph # (Auto) 2400 (9419-8039) /uL [place] # (Auto) 900 (0-900) /uL Eos # (Auto) 400 (0-450) /uL Baso # (Auto) 100 (0-100) /uL Sodium (137-145) mmol/L Potassium (3.4-5.1) mmol/L Chloride (98-107) mmol/L Carbon Dioxide (22-32) mmol/L BUN (7-17) mg/dL Creatinine (0.52-1.04) mg/dL Estimated GFR (>60) mL/min BUN/Creatinine Ratio (6-22) Glucose (70-100) mg/dL Lactate (0.7-2.1) mmol/L Calcium (8.4-10.2) mg/dL Total Bilirubin (0.2-1.3) mg/dL AST (14-36) IU/L ALT (<35) IU/L Alkaline Phosphatase (38-126) U/L Total Protein (6.3-8.2) g/dL Albumin (3.5-5.0) g/dL Globulin (1.7-4.1) g/dL Albumin/Globulin Ratio (1.0-2.8) Procalcitonin < 0.05 (<0.5) ng/mL Urine RBC 1-5/hpf (0-5/HPF) Urine WBC 1-5/hpf (0-5/HPF) Ur Squamous Epith Cells 10-30 /hpf H (0-5/HPF) Amorphous Sediment 1+ Urine Bacteria Many (>30) H (None) Hyaline Casts 1-5/lpf (None) Ur Culture Indicated? Cult not indicated 04/08/20 04/08/20 Range/Units 17:39 17:39 WBC (4.5-11.0) X10^3/uL RBC (4.0-5.2) X10^6/uL Hgb (12.0-16.0) g/dL Hct (36-46) % MCV (80-100) fL MCH (26-34) PG MCHC (30-36) % RDW (11.6-14.8) % Plt Count (150-400) X10^3/uL Neut % (Auto) (50-75) % Lymph % (Auto) (25-40) % [place] % (Auto) (3-14) % Eos % (Auto) (2-4) % Baso % (Auto) (0-2) % Neut # (Auto) (8306-1318) /uL Lymph # (Auto) (0221-7534) /uL [place] # (Auto) (0-900) /uL Eos # (Auto) (0-450) /uL Baso # (Auto) (0-100) /uL Sodium 130 L (137-145) mmol/L Potassium 3.6 (3.4-5.1) mmol/L Chloride 97 L (98-107) mmol/L Carbon Dioxide 23 (22-32) mmol/L BUN 21 H (7-17) mg/dL Creatinine 0.83 (0.52-1.04) mg/dL Estimated GFR > 60.0 (>60) mL/min BUN/Creatinine Ratio 25.3 H (6-22) Glucose 103 H (70-100) mg/dL Lactate 1.0 (0.7-2.1) mmol/L Calcium 9.0 (8.4-10.2) mg/dL Total Bilirubin 1.0 (0.2-1.3) mg/dL AST 64 H (14-36) IU/L ALT 102 H (<35) IU/L Alkaline Phosphatase 100 (38-126) U/L Total Protein 8.0 (6.3-8.2) g/dL Albumin 3.8 (3.5-5.0) g/dL Globulin 4.2 H (1.7-4.1) g/dL Albumin/Globulin Ratio 0.9 L (1.0-2.8) Procalcitonin (<0.5) ng/mL Urine RBC (0-5/HPF) Urine WBC (0-5/HPF) Ur Squamous Epith Cells (0-5/HPF) Amorphous Sediment Urine Bacteria (None) Hyaline Casts (None) Ur Culture Indicated? Urine Dip Bedside Urine Glucose Negative Bedside Urine Bilirubin - Negative Bedside Urine Ketone +/- 5 Urine Specific Ideal 1.030 Bedside Urine Occult Blood +/- Bedside Urine pH 6.0 Bedside Urine Protein + 30 Bedside Urine Urobilinogen - Negative Bedside Urine Nitrite - Negative Bedside Urine Leukocytes - Negative Esterase Imaging Data CT Soft Tissue Neck: Radiologist's Impression: [address] [address] [address] Scan Report Signed Patient: Amalia Su LMR#: [id number] : 1975Acct:[id number] Age/Sex: 45 / FDate of Service: 04/08/20 Loc: ED Accession Number: [id number] Procedure: CT soft tissue neck w con Ordering Provider: Kimberly Salinas D.O. PROCEDURE: CT SOFT TISSUE NECK W CON INDICATIONS: left IJ abcess TECHNIQUE: After the administration of intravenous contrast, 3.0 mm axial sections acquired from the sella to the aortic arch. Additional oblique axial 3.0 mm sections acquired through the pharynx. 3 mm thick coronal and sagittal reformats were generated. For radiation dose reduction, the following was used: automated exposure control. COMPARISON: [facility], CT, SOFT TISSUE NECK W CONTRAST, 07/04/2017, 18:24. FINDINGS: Image quality: Excellent. Lymph nodes: No enlarged lymph nodes seen throughout the neck. Vessels: Visualized vasculature appears patent. Carotid arteries and jugular veins are patent. Neck spaces: The oropharynx, nasopharynx, and pharynx demonstrate no mucosal lesions. The vocal cords, false vocal cords, pyriform sinuses, epiglottis, vallecula, and tongue base all appear normal. Phlegm a charlene changes noted in the anterior-lateral left soft tissues of the neck extending from the clavicle to the hyoid bone compatible with cellulitis. Multiple small fluid collections with peripheral enhancement ranging in size from 2-6 millimeters is noted in the region of cellulitis compatible with developing abscesses. Tiny cluster of air locules noted in the right knee and lateral neck soft tissues situated between the right sternocleidomastoid muscle in the right internal jugular vein.. Glands: The parotid and submandibular glands appear normal. Thyroid gland is within normal limits . Miscellaneous: Visualized brain and orbits appear normal. Lung apices appear clear. Superficial soft tissues appear normal. Bones: No suspicious bony lesions. Visualized sinuses and mastoids appear unremarkable. IMPRESSION: 1. Extensive left anterolateral cellulitis extending from the left clavicle to the left hyoid bone. 2. Multiple small fluid collections within the anterolateral left neck cellulitis range in size from 2-6 millimeters compatible with small abscesses. Dictated by: Patience Aguirre MD, PhD on 04/08/2020 at 18:24 Approved by: Patience Aguirre MD, PhD on 04/08/2020 at 18:28 Discharge Plan Departure Patient Disposition: Admitted As Inpatient Clinical Impression: Abscess of skin of neck
[2020-04-08] MEDS: VANCOMYCIN 1,500 MG/300 ML FROZ.PIGGY 200 MG IV (18:35)
--- NOTE | 2020-04-08 19:30 | PM.HP.1 ---
History of Present Illness History of Present Illness Date Patient Seen: 04/08/20 Time Patient Seen: 19:19 Chief complaint: LEFT SIDE OF NECK ABSCESS Narrative: The patient is a woman who injects IV drugs. Twenty days ago she attempted to inject her left a jugular vein which she has done before. She missed the vein and developed pain swelling and finally drainage from the area. She denies sharing needles. Last HIV test was a year ago. COVID-19 testing is pending. She has been using drugs for over 30 years she said. 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) Surgical History History of cardiac radiofrequency ablation (RFA) Status post hysterectomy Status post knee surgery Family & Social History Tobacco & Substance use: Smoking Status Current every day smoker Substance Use Type heroin Meds Home Medications and Allergies Home Medications Medication Instructions Recorded Confirmed Type clonidine HCl 0.1 mg PO BID PRN #10 tab 04/04/18 Rx ondansetron HCl [Zofran] 4 mg PO Q6-8H PRN #10 tab 04/04/18 Rx Mucinex 1 tab PO .ONCE 04/08/18 04/08/18 History albuterol sulfate 1 puff INHALATION Q4-6H PRN #6.7 04/08/18 Rx gram albuterol sulfate [ProAir HFA] 1 puff INHALATION Q6H PRN 04/08/18 04/08/18 History clobetasol 1 applic TOPICAL DAILY 04/08/18 04/08/18 History clonidine HCl 1 tab PO BID PRN 04/08/18 04/08/18 History ondansetron HCl 1 tab PO Q6-8H PRN 04/08/18 04/08/18 History sertraline 150 mg PO QAM 04/08/18 04/08/18 History spironolactone 50 mg PO DAILY 04/08/18 04/08/18 History Allergies Allergy/AdvReac Type Severity Reaction Status Date / Time adhesive Allergy Unknown Verified 08/23/19 18:33 latex Allergy Unknown Verified 08/23/19 18:33 Sulfa (Sulfonamide Allergy Unknown Verified 08/23/19 18:33 Antibiotics) fentanyl AdvReac Severe Cardiac Verified 04/08/20 19:35 METAL Allergy Unknown Uncoded 08/23/19 18:33 Review of Systems Review of Systems Narrative: Patient denies visual difficulties double vision pain arise earache sore throats no trouble swallowing no tooth aches no cough cold she is a long-time smoker. Patient denies cardiac problems other than Admnp-Qqbhwjmxo-Ftkye which was ablated successfully. Patient denies black or bloody bowel movements. No seizures or blackouts. No anxiety or depression. Exam Vital Signs (past 8 hours): - 04/08/20 17:00 04/08/20 17:46 04/08/20 18:00 Temperature 98.7 F Pulse Rate 124 H 95 H 90 Respiratory Rate 22 13 13 Blood Pressure 120/93 H 118/77 115/66 Pulse Oximetry 98 96 96 04/08/20 18:30 04/08/20 18:40 04/08/20 19:00 Temperature Pulse Rate 94 H 91 H 92 H Respiratory Rate 18 18 16 Blood Pressure 106/69 115/74 Pulse Oximetry 96 99 97 Oxygen Delivery Method Room Air Narrative Exam Narrative: Cooperative no apparent distress. Eyes are nonicteric. Pupils are small. Conjunctiva are pink. Oral mucosa pink dry. Teeth are intact. No open lesions. Left neck has an open draining site with compression of the indurated tissues all up around it pus well as up through the opening. The opening is about this size of a large pencil eraser. This is been cultured. Lungs are clear to auscultation without rales or rhonchi sit a percussion. Heart regular rate and rhythm without murmur gallop. Abdomen is soft nontender without mass. Liver and spleen not obviously enlarged. Patient is alert and oriented. Speech rate and content are appropriate. Affect is appropriate. Objective Imaging CT of the neck: My impression: Multiple small fluid collections in the neck involving muscle and subcu fat. The internal jugular is patent and I believe the external jugular is as well. Difficult to tell some of the relationships here to the lymph drainage the base of the left neck. Labs Result Diagrams: 04/08/20 17:39 04/08/20 17:39 Labs: Laboratory Results - last 24 hr 04/08/20 04/08/20 04/08/20 17:30 17:39 17:39 WBC 9.6 RBC 4.70 Hgb 13.2 Hct 38.6 MCV 82.2 MCH 28.1 MCHC 34.2 RDW 14.8 Plt Count 528 H Neut % (Auto) 61.0 Lymph % (Auto) 24.6 L Christian % (Auto) 9.6 Eos % (Auto) 4.1 H Baso % (Auto) 0.7 Neut # (Auto) 5900 Lymph # (Auto) 2400 Christian # (Auto) 900 Eos # (Auto) 400 Baso # (Auto) 100 Sodium Potassium Chloride Carbon Dioxide BUN Creatinine Estimated GFR BUN/Creatinine Ratio Glucose Lactate Calcium Total Bilirubin AST ALT Alkaline Phosphatase Total Protein Albumin Globulin Albumin/Globulin Ratio Procalcitonin < 0.05 Urine RBC 1-5/hpf Urine WBC 1-5/hpf Ur Squamous Epith Cells 10-30 /hpf H Amorphous Sediment 1+ Urine Bacteria Many (>30) H Hyaline Casts 1-5/lpf Ur Culture Indicated? Cult not indicated 04/08/20 04/08/20 17:39 17:39 WBC RBC Hgb Hct MCV MCH MCHC RDW Plt Count Neut % (Auto) Lymph % (Auto) Christian % (Auto) Eos % (Auto) Baso % (Auto) Neut # (Auto) Lymph # (Auto) Christian # (Auto) Eos # (Auto) Baso # (Auto) Sodium 130 L Potassium 3.6 Chloride 97 L Carbon Dioxide 23 BUN 21 H Creatinine 0.83 Estimated GFR > 60.0 BUN/Creatinine Ratio 25.3 H Glucose 103 H Lactate 1.0 Calcium 9.0 Total Bilirubin 1.0 AST 64 H ALT 102 H Alkaline Phosphatase 100 Total Protein 8.0 Albumin 3.8 Globulin 4.2 H Albumin/Globulin Ratio 0.9 L Procalcitonin Urine RBC Urine WBC Ur Squamous Epith Cells Amorphous Sediment Urine Bacteria Hyaline Casts Ur Culture Indicated? Assessment & Plan Assessment & Plan narrative: Patient with chronic drug abuse history with an abscess related to attempting an IV injection of heroin. I think that this is much more extensive than the appearance reveals and I think the patient should go to the operating room and be examined under anesthesia and a any pockets drained. She has received IV vancomycin and will receive additional broad-spectrum antibiotic. By the longevity of her use patient is resistant to changing her behavior.
[2020-04-08 19:51] LABS: COVID19 -Nasal RAPID Negative (Negative)
[2020-04-08] MEDS: CEFAZOLIN 2 GM/100 ML FROZ.PIGGY IV (21:18)
[2020-04-08] MEDS: LACTATED RINGERS 1,000 ML 100 ML IV (21:30)
--- NOTE | 2020-04-08 21:39 | SUR.OPER ---
Supine on padded OR bed, head on pillow, arm padded and tucked at side, legs uncrossed, safety belt at thigh, tape over blanket over lower legs .
--- NOTE | 2020-04-08 22:05 | PM.OP.1 ---
Operative Date/Time/Diagnoses Date of procedure: 04/08/20 Time of procedure: 22:05 Pre-op diagnosis: Left neck abscess secondary to IV drug abuse Post-op diagnosis: same Procedure & Clinicians Procedure: Incision and drainage complex neck abscess Same procedure as scheduled: Yes Indications: Abscess left neck Surgeon: Darion Agee Click Yes if Unassisted: Yes Anesthesia Type: General Operative Notes Findings: Complex abscess involving muscle subcu fat and skin Closure Type: not applicable (Wound left open) Specimen(s): none sent Prosthetic devices, grafts, tissues, transplants, or devices: None Estimated Blood Loss (mL): 50 Blood products transfused: none Procedure in detail: The patient was placed supine on the operating room table and underwent general LMA anesthesia. Her left neck and chest wall were prepped and draped in the usual fashion. The patient was draining lucy pus from an opening. I inserted suction and immediately began dissect blood from the wound. There were multiple small openings in the skin is if there were satellite abscesses. I probed these in a connected to the main abscess. I enlarged the incision to adequately explore drain and packed this wound. With a gentle finger probing I broke down abscesses that extended under the skin and deep into muscle. When I felt that all of the tracts had been opened I irrigated the neck copiously and packed it with dry gauze. The bleeding seemed to be under good control with completion. I do expect some oozing however due to the rich blood supply the neck. Because of this I will avoid chemical DVT prophylaxis for now. Complications: none Post-operative Condition: stable Disposition: PACU Plan for aftercare: Admit for IV antibiotics pending culture results.
[2020-04-08] MEDS: HYDROMORPHONE 2 MG INJ IV ×8 (22:08→22:39)
[2020-04-08] MEDS: ACETAMINOPHEN 325 MG TABLET 650 MG PO (22:27)
--- NOTE | 2020-04-08 23:15 | SUR.PHASEI ---
Patient taken up to room 212 with all belongings. Left in stable condition with receiving RN at bedside.
[2020-04-09] VITALS (10 sets, daily range): BP systolic 90–110; BP diastolic 33–61; PULSE 60–83; RESP 14–20; TEMP 36.1–37.1; O2SAT 93–100; BMI 31.8
[2020-04-09] MEDS: LACTATED RINGERS 1,000 ML 42 ML IV (00:39)
[2020-04-09] MEDS: GABAPENTIN 300 MG CAPSULE PO ×2 (00:40→22:20)
--- NOTE | 2020-04-09 02:23 | PC.ADMIT ---
Addendum entered by Lisa Fox R.N. 04/09/20 05:01: States pain has worsened and is now 6/10; medicated with Dilaudid. Original Note: Patient admitted to room 212 per stretcher from PACU. Is alert and oriented. Breath sounds CTA with RA sat of 96%. HRR. Denies nausea and was provided soup, sandwich, crackers, juice and yogurt and tolerated well. BT present but denies flatus as yet. Has voided and denies dysuria, frequency or urgency. Up to bathroom with SBA. Able to move self in bed. Dressing to left neck is CDI. Does complain of 4/10 pain but states it is tolerable; is aware she has Tylenol ordered for mild pain and Dilaudid for severe pain. Bilateral calf SCD's applied. Fall risk score is moderate; bed alarm is activated. Oriented to call light and bed controls. [address] Admission Note: The patient,Amalia Su,45 y/o, was given written information regarding hospital policies, unit procedures and contact persons. Patient's smoking status: Current every day smoker. Vital Signs - 8 hr 04/08/20 18:30 04/08/20 18:40 04/08/20 19:00 Temperature Pulse Rate 94 H 91 H 92 H Respiratory Rate 18 18 16 Blood Pressure 106/69 115/74 Pulse Oximetry 96 99 97 04/08/20 19:30 04/08/20 20:00 04/08/20 21:57 Temperature 99.1 F Pulse Rate 85 85 76 Respiratory Rate 14 19 10 L Blood Pressure 107/69 113/66 83/53 L Pulse Oximetry 97 96 96 04/08/20 22:01 04/08/20 22:06 04/08/20 22:12 Temperature 98.2 F 98.4 F 98.2 F Pulse Rate 75 71 79 Respiratory Rate 11 L 13 13 Blood Pressure 91/51 L 100/60 103/66 Pulse Oximetry 99 98 99 04/08/20 22:26 04/08/20 22:42 04/08/20 22:56 Temperature 98.1 F 97.9 F 97.9 F Pulse Rate 72 78 77 Respiratory Rate 14 13 14 Blood Pressure 96/62 100/57 L 100/56 L Pulse Oximetry 99 95 95 04/08/20 23:02 04/08/20 23:12 04/09/20 00:15 Temperature 97.9 F 97.4 F L 98.7 F Pulse Rate 78 75 83 Respiratory Rate 13 18 18 Blood Pressure 100/60 103/65 101/60 Pulse Oximetry 93 95 93 04/09/20 00:44 04/09/20 01:25 Temperature 97.7 F 97.7 F Pulse Rate 75 72 Respiratory Rate 18 18 Blood Pressure 104/61 96/55 L Pulse Oximetry 94 96
[2020-04-09] MEDS: HYDROMORPHONE 2 MG TABLET PO ×3 (04:56→17:28)
[2020-04-09] MEDS: CEFAZOLIN 2 GM/100 ML FROZ.PIGGY IV ×3 (04:57→22:20)
[2020-04-09] MEDS: VANCOMYCIN 1,500 MG/300 ML FROZ.PIGGY 150 MG IV ×2 (05:47→17:42)
[2020-04-09 06:26] LABS: Add Manual Diff / Slide Review NO; Basophils Absolute Auto 0 /uL (0-100); Basophils Percent Auto 0.2 % (0-2); Eosinophils Absolute Auto 0 /uL (0-450); Eosinophils Percent Auto 0.1 % (2-4); Hematocrit 34.7 % (36-46); Hemoglobin 11.8 g/dL (12.0-16.0); Lymphocytes Absolute Auto 600 /uL (1100-4500); Lymphocytes Percent Auto 9.8 % (25-40); Mean Corpuscular Hemoglobin 27.9 PG (26-34); Mean Corpuscular Volume 81.9 fL (80-100); Monocytes Absolute Auto 100 /uL (0-900); Monocytes Percent Auto 1.1 % (3-14); Neutrophils Absolute Auto 5300 /uL (1500-7000); Neutrophils Percent Auto 88.8 % (50-75); Platelet Count 393 X10^3/uL (150-400); Red Blood Cell Count 4.24 X10^6/uL (4.0-5.2); Red Cell Distribution Width 14.6 % (11.6-14.8)
[2020-04-09] MEDS: ACETAMINOPHEN 325 MG TABLET 650 MG PO ×2 (11:03→17:29)
--- NOTE | 2020-04-09 11:03 | CM.DANOTE ---
DCP Assessment: EMR reviewing: Patient is a 45 yr old female who was admitted for neck absess due to patients IV drug use. CM/RN met with patient at the bedside and explained role. Patient was alert and oriented x3 during Cm/RN visit. Patient currently lives in a rented room from a friend with her boyfriend who is also a IV drug user. Patient did not want to give significant others name and asked to have her mother be Decision maker if one is needed. Patient Does not want to get treatment for drug usage but is willing to look over resources. CM/Rn will get patient a list of OP resources for her to review. CM/RN spoke with patient about D/C planning and stated that depending on how her cultures come back and when treatment is needed will determine D/C planning. If patient will need IV antibiotics patient has agreed to go to SNF for that -[facility] but [facility] not [facility] patients insurance. [facility] diaz so CM/Rn will contact them to review if patient will need IV antibiotics at D/C. I:Diaz and Medicaid Plan: D/C home with significant other if Oral antibiotcs are ordered if patient needs IV antibiotics patient has agreed to SNF at D/C. CM/ RN will call [facility] and [facility] to see if [facility] availability. Kennedi Su RN Discharge Planning/Care Management Discharge Assessment Start: 04/09/20 10:57 Freq: Status: Active Protocol: Document 04/09/20 10:57 (Rec: 04/09/20 11:02 [id number]) Discharge Planning Assessment Assigned Records Management Director Kennedi Su Rn DPOA/Assigned Designee Name Yulissa Su (Mother) Contact Information [phone] Advance Directives? No History Provided By Patient,Medical Record Has Patient been admitted in last 30 No days? Prior Living Arrangements Apartment/Condo Comment patient rents rooms from friends and other people with her significant other Household Members significant other Type of transportation used prior to Relies on Others admit Independent with ADL's Yes Is patient alert and oriented? Yes Caregiver for Another No Comment Unknown at this time it will be determined if patient will need IV antibiotics or not at D/C if patient will IV antibiotics then SNF- [facility] but [facility]'t accept [place] - will have to get another choice. Barriers to Discharge Yes Discharge Plan Home Referrals Initiated Halfway Additional Comment contacted [facility] and [facility] to review and determine if they will accept if patient needs IV antibiotics at D/C. Whiteboard Updated in Patient Room with Yes name and ext. # of Records Management Director Review Status In Process Next Review Type Continued Stay Review
--- NOTE | 2020-04-09 11:21 | PC.NURSE ---
Shift summary: Alert and oriented X3. Denies fever/chills, VSS. Asymptomatic hypotension (90/53). Dressing to L neck C/D/I. Medicated with 2 mg PO Dilaudid + 650 mg Tylenol for 7/10 pain at incision site. Denies N/V, tolerating PO's without issue. BT+, flatus+. Lungs CTA, HRR. Able to make needs known and calls appropriately. Light and belongings within reach, bed alarm on.
--- NOTE | 2020-04-09 16:53 | P.PN_ITS ---
Subjective Subjective Date Patient Seen: 04/09/20 Time Patient Seen: 16:54 Interval history: No acute events overnight. Pt has been resting most of the day. Exam Vital Signs (past 8 hours): - 04/09/20 11:52 Temperature 97.7 F Pulse Rate 71 Respiratory Rate 14 Blood Pressure 99/56 L Pulse Oximetry 100 Oxygen Delivery Method Room Air Oxygen Flow Rate 0 Narrative Exam Narrative: GENERAL: Alert, comfortable. Appears stated age. Answers questions promptly and appropriately. Vital signs noted. HENT: Normocephalic, atraumatic. Hearing intact. Oral mucosa is pink and moist. EYES: Conjunctiva pink, sclera white, no periorbital swelling. CARDIOVASCULAR: Regular rate. No pedal edema. RESPIRATORY: Non-tachypneic, breathing comfortably on room air. Chest: Left upper chest/neck a large dry dressing saturated with blood is present, and the top layers were removed revealing an intact gauze dressing packed into the wound without any surrounding cellulitis, drainage, or bleeding. SKIN: Warm, dry, soft, appropriate color for ethnicity. No other lesions, rashes, or wounds. NEURO: Alert and Oriented X 3. No gross sensory deficits, or cognitive issues. PSYCH: Appropriate affect and mood. Objective Labs Result Diagrams: 04/09/20 05:34 04/08/20 17:39 Labs: Laboratory Results - last 24 hr 04/08/20 04/08/20 04/08/20 17:30 17:39 17:39 WBC 9.6 RBC 4.70 Hgb 13.2 Hct 38.6 MCV 82.2 MCH 28.1 MCHC 34.2 RDW 14.8 Plt Count 528 H Neut % (Auto) 61.0 Lymph % (Auto) 24.6 L [place] % (Auto) 9.6 Eos % (Auto) 4.1 H Baso % (Auto) 0.7 Neut # (Auto) 5900 Lymph # (Auto) 2400 [place] # (Auto) 900 Eos # (Auto) 400 Baso # (Auto) 100 Sodium Potassium Chloride Carbon Dioxide BUN Creatinine Estimated GFR BUN/Creatinine Ratio Glucose Lactate Calcium Total Bilirubin AST ALT Alkaline Phosphatase Total Protein Albumin Globulin Albumin/Globulin Ratio Procalcitonin < 0.05 Urine RBC 1-5/hpf Urine WBC 1-5/hpf Ur Squamous Epith Cells 10-30 /hpf H Amorphous Sediment 1+ Urine Bacteria Many (>30) H Hyaline Casts 1-5/lpf Ur Culture Indicated? Cult not indicated COVID-19 PCR 04/08/20 04/08/20 04/08/20 17:39 17:39 18:35 WBC RBC Hgb Hct MCV MCH MCHC RDW Plt Count Neut % (Auto) Lymph % (Auto) [place] % (Auto) Eos % (Auto) Baso % (Auto) Neut # (Auto) Lymph # (Auto) [place] # (Auto) Eos # (Auto) Baso # (Auto) Sodium 130 L Potassium 3.6 Chloride 97 L Carbon Dioxide 23 BUN 21 H Creatinine 0.83 Estimated GFR > 60.0 BUN/Creatinine Ratio 25.3 H Glucose 103 H Lactate 1.0 Calcium 9.0 Total Bilirubin 1.0 AST 64 H ALT 102 H Alkaline Phosphatase 100 Total Protein 8.0 Albumin 3.8 Globulin 4.2 H Albumin/Globulin Ratio 0.9 L Procalcitonin Urine RBC Urine WBC Ur Squamous Epith Cells Amorphous Sediment Urine Bacteria Hyaline Casts Ur Culture Indicated? COVID-19 PCR Negative 04/09/20 05:34 WBC 6.0 RBC 4.24 Hgb 11.8 L Hct 34.7 L MCV 81.9 MCH 27.9 MCHC 34.0 RDW 14.6 Plt Count 393 Neut % (Auto) 88.8 H D Lymph % (Auto) 9.8 L [place] % (Auto) 1.1 L Eos % (Auto) 0.1 L Baso % (Auto) 0.2 Neut # (Auto) 5300 Lymph # (Auto) 600 L [place] # (Auto) 100 Eos # (Auto) 0 Baso # (Auto) 0 Sodium Potassium Chloride Carbon Dioxide BUN Creatinine Estimated GFR BUN/Creatinine Ratio Glucose Lactate Calcium Total Bilirubin AST ALT Alkaline Phosphatase Total Protein Albumin Globulin Albumin/Globulin Ratio Procalcitonin Urine RBC Urine WBC Ur Squamous Epith Cells Amorphous Sediment Urine Bacteria Hyaline Casts Ur Culture Indicated? COVID-19 PCR Assessment & Plan Assessment and plan (1) Abscess of skin of neck: Status: Acute (2) History of drug use disorder: Status: None (3) Heroin abuse: Status: Acute Assessment & Plan narrative: This is a 45-year-old woman who had incision and drainage of an abscess on the left side of her neck last evening by Dr. Agee. She still has the operative dressing in place. I removed the outer dressing and redressed it. The patient in the nurse will plan on saturating the gauze and removing it in the shower later this evening, and recover with a clean gauze dressing. COVID-19 COVID-19 status: Negative Result date/Date tested (Pos, Neg/Pending): 04/08/20 Time Spent With Patient Time with patient: 15-24 minutes Quality VTE Deep Vein Thrombosis/Pulmonary Embolism Present on Admission: No
[2020-04-09] MEDS: DOCUSATE 100 MG CAPSULE PO (22:20)
[2020-04-10] MEDS: HYDROMORPHONE 2 MG TABLET PO ×2 (00:07→08:53)
--- NOTE | 2020-04-10 00:18 | PC.NURSE ---
Addendum entered by Lisa Fox R.N. 04/10/20 05:15: Complains of burning/aching pain in left neck; medicated with Tylenol as too early to give additional Dilaudid. Original Note: Patient is alert and oriented. Breath sounds CTA with RA sat of 97%. HRR. Denies nausea. BT present and abdomen is soft; passing flatus and reports she had a stool yesterday. Voiding without dysuria, frequency or urgency. Is able to move self in bed. Up with SBA for safety. Refusing to wear SCD's so reminded to ankle wave. Dressing to neck is CDI. Patient refusing to shower at this time for dressing change as ordered by MD on previous shift; wants to wait until morning so that she can get a good night sleep. Fall risk score is moderate and bed alarm is activated.
[2020-04-10 04:40] VITALS: BP 91/60; PULSE 70; RESP 18; TEMP 36.5; O2SAT 97
[2020-04-10] MEDS: LACTATED RINGERS 1,000 ML 42 ML IV (05:09)
[2020-04-10] MEDS: CEFAZOLIN 2 GM/100 ML FROZ.PIGGY IV ×3 (05:10→20:42)
[2020-04-10] MEDS: ACETAMINOPHEN 325 MG TABLET 650 MG PO (05:13)
[2020-04-10 05:55] LABS: Vancomycin Trough 8.9 ug/mL (10-20)
[2020-04-10] MEDS: VANCOMYCIN 1,500 MG/300 ML FROZ.PIGGY 150 MG IV (06:08)
[2020-04-10] MEDS: VANCOMYCIN TROUGH 1 REQUEST MISC (06:13)
[2020-04-10 08:00] VITALS: BP 91/59; PULSE 60; RESP 15; TEMP 36.8; O2SAT 99
[2020-04-10] MEDS: GABAPENTIN 300 MG CAPSULE PO ×2 (08:51→20:42)
[2020-04-10] MEDS: DOCUSATE 100 MG CAPSULE PO ×2 (08:51→20:42)
[2020-04-10 11:42] VITALS: BP 120/72; PULSE 64; RESP 16; TEMP 36.7; O2SAT 100
[2020-04-10] MEDS: MORPHINE 4 MG/ML INJ IV (11:59)
[2020-04-10] MEDS: BUPIVACAINE 0.5% (PF) VIAL 10 ML INJ (14:24)
[2020-04-10] MEDS: MORPHINE 2 MG/ML INJ 4 MG IV (14:24)
[2020-04-10] MEDS: VANCOMYCIN 1,250 MG in SODIUM CHLORIDE 0.9% 250 ML IV ×2 (15:15→21:55)
[2020-04-10 15:30] VITALS: BP 98/53; PULSE 71; RESP 18; TEMP 36.4; O2SAT 100
--- NOTE | 2020-04-10 15:36 | CM.DPC ---
DCP Cont: Per RN, Surgeon rounded around 1400 and still not culture results yet but anticipate they should be available by tomorrow 04/11/20 morning. MD still feels chance she may be able to d/c on orals but need culture results to make final determination. Clinical packet printed and ready in case group home IV-Abx needed at d/c and potential for [facility] at [facility] if they have an opening and willing to review or to determine if other [facility] (they already declined pt) are contracted with [facility] and willing to review. [facility] or [facility] may be willing to review but pt's active drug use and living situation are large barriers to placement and make outpt infusion not an option. Plan: SW to follow in the morning for pending culture results to determine d/c with IV-Abx vs oral meds. NIKITA Zambrano
--- NOTE | 2020-04-10 16:23 | PC.NURSE ---
Dr. Agee completed dressing change at bedside. Patient had showered prior to saturate dressing for easier removal. patient tolerated well, now with gauze and paper tape covering and remaining in place. Patient without other complaints, tolerating diet and voiding without difficulty. Patient states pain is well managed at this time, resting in bed with call light within reach, calls for assistance getting up.
--- NOTE | 2020-04-10 19:08 | PM.PNPO.1 ---
Subjective Subjective Date Patient Seen: 04/10/20 Time Patient Seen: 12:00 Interval history: The patient is a woman who had an I&D of the a neck abscess done a day and half ago. She is having local pain. It feels better however than when she came into the hospital. Exam Vital Signs (past 8 hours): - 04/10/20 11:42 04/10/20 15:30 Temperature 98.0 F 97.6 F Pulse Rate 64 71 Respiratory Rate 16 18 Blood Pressure 120/72 98/53 L Pulse Oximetry 100 100 Oxygen Delivery Method Room Air Oxygen Flow Rate 0 Narrative Exam Narrative: The patient was placed in the shower and took a good shower and got the dressings stopping wet. We then use saline and gently removed the packing. There was no bleeding surprisingly. I irrigated out the wound and packed it with 0.5% Marcaine on gauze. Dressing was applied and the patient tolerated this well. She received morphine just prior to it. Objective Labs Result Diagrams: 04/09/20 05:34 04/08/20 17:39 Labs: Laboratory Results - last 24 hr 04/10/20 05:25 Vancomycin Trough 8.9 L Assessment & Plan Post-op Postoperative Procedures: Procedures Operation Date: 04/08/20 22:15 Actual Procedures Side Surgeon p Incision and Drainage LEFT NECK ABSCESS Left Darion Agee MD Postoperative day: 2 Postoperative status: doing well Postoperative plan narrative: Growing g positive cocci. Await the final ID. Depending on that we will alter her antibiotics and plan for her continuation of care as an outpatient once IV antibiotics are completed. Time Spent With Patient Time with patient: 15-24 minutes Quality VTE Deep Vein Thrombosis/Pulmonary Embolism Present on Admission: No
[2020-04-10 20:22] VITALS: BP 125/68; PULSE 72; RESP 18; TEMP 36.8; O2SAT 99
[2020-04-10] MEDS: OXYCODONE IR 5 MG TABLET PO (20:45)
[2020-04-10 23:20] VITALS: BP 120/76; PULSE 75; RESP 15; TEMP 36.7; O2SAT 100
--- NOTE | 2020-04-10 23:26 | PC.NURSE ---
Addendum entered by Lisa Fox R.N. 04/11/20 05:22: Complains of burning/throbbing neck pain; medicated with Dilaudid. Original Note: Patient is alert and oriented. Breath sounds CTA with RA sat of 100% . HRR. Denies nausea. BT present and reports having BM earlier today. Voiding on toilet; denies dysuria, frequency or urgency. Dressing to left neck is CDI. Able to turn self in bed. Provided SBA when up at night for safety. Denies pain. Again refusing SCD's as states she cannot sleep with them on. Fall risk score is moderate.
[2020-04-11 03:13] VITALS: BP 122/72; PULSE 65; RESP 16; TEMP 36.4; O2SAT 99
[2020-04-11] MEDS: CEFAZOLIN 2 GM/100 ML FROZ.PIGGY IV (05:11)
[2020-04-11] MEDS: HYDROMORPHONE 2 MG TABLET PO ×2 (05:21→11:50)
[2020-04-11] MEDS: VANCOMYCIN 1,250 MG in SODIUM CHLORIDE 0.9% 250 ML IV (05:59)
[2020-04-11 09:00] VITALS: BP 124/78; PULSE 77; RESP 16; TEMP 36.7; O2SAT 100
[2020-04-11] MEDS: DOCUSATE 100 MG CAPSULE PO (09:52)
[2020-04-11] MEDS: GABAPENTIN 300 MG CAPSULE PO (09:52)
[2020-04-11] MEDS: CLINDAMYCIN 150 MG CAPSULE 300 MG PO (09:53)
[2020-04-11] MEDS: OXYCODONE IR 5 MG TABLET PO (09:56)
[2020-04-11 12:00] VITALS: BP 93/52; PULSE 71; RESP 16; TEMP 36.6; O2SAT 92
--- NOTE | 2020-04-11 13:51 | PM.DS.1 ---
History of Present Illness History of Present Illness Chief complaint: LEFT SIDE OF NECK ABSCESS Narrative: The patient is a woman who injects IV drugs. Twenty days ago she attempted to inject her left a jugular vein which she has done before. She missed the vein and developed pain swelling and finally drainage from the area. She denies sharing needles. Last HIV test was a year ago. COVID-19 testing is pending. She has been using drugs for over 30 years she said. Discharge Providers Provider Date of admission: 04/08/20 20:25 Discharge Date: 04/11/20 Consults: 04/08/20 23:16 Consult to Discharge Planning Routine Comment: 04/10/20 19:15 Consult to Discharge Planning Routine Comment: May need home health for wound care Discharge provider: Darion Agee MD Summary Hospital Course Discharge Diagnosis: Neck abscess secondary to IV drug abuse (heroin) Organism grown Staph saprophyticus Exam Vital Signs (past 8 hours): - 04/11/20 09:00 04/11/20 12:00 Temperature 98.0 F 97.9 F Pulse Rate 77 71 Respiratory Rate 16 16 Blood Pressure 124/78 93/52 L Pulse Oximetry 100 92 Oxygen Delivery Method Room Air Oxygen Flow Rate 0 Narrative Exam Narrative: Wound clean. Less induration and redness. Objective Labs Result Diagrams: 04/09/20 05:34 04/08/20 17:39 Discharge Assessment & Plan Assessment and Plan Assessment: Neck abscess drained. Patient discharged on Cleocin to which the organism is sensitive. Plan of Treatment: Daily wound care. Follow up in the office. Discharge Plan Discharge Plan Patient Disposition: Home Discharge comment: You had a staph infection in her neck. It is not MRSA. Your medication prescriptions have been sent to your local pharmacy at [facility]. Consider cessation of illegal drugs and rehabilitation. Discharge orders & Medications Prescriptions: New clindamycin HCl 300 mg capsule 300 mg PO TID Qty: 14 RF: 0 oxycodone-acetaminophen 5-325 mg tablet 1 tab PO Q6H PRN (Reason: pain) Qty: 14 RF: 0 Follow up/Referrals: Darion Agee MD [Physician] - 04/17/20 9:45 am (If you need to reach a doctor please call our office. If our office is closed listen to the entire message in at the end you will be connected with the page compacting machine operator/tender who will page the doctor on-call.) Diet/Activity/Treatments Diet: Diet as Tolerated Activity: Do not immerse the wound in water the water may run over it Skin/Wound/Dressing Care Report to your healthcare provider any signs of infection, such as:: chills, fever, unusual drainage and unusual redness Dressing: Shower daily. Remove the packing in the shower and rinse out the wound. Then have the wound repacked. Quality VTE Deep Vein Thrombosis/Pulmonary Embolism Present on Admission: No
--- NOTE | 2020-04-11 14:29 | PC.NURSE ---
Patient showered and got dressing wet and took out gauze packing in shower. Boyfriensalvatore at bedside then we completed dressing change with teaching. They both state understanding and have no further questions or concerns at this time. Boyfriend Zi and patient feel capable of safely changing dressing. IV removed intact. Discharge instructions and home care handouts reviewed with patient, they state understanding and have no further questions or concerns at this time.
--- NOTE | 2020-04-11 14:41 | CM.SWNOTE ---
DC Note Surgeon has discharged patient on oral abx, bf to assist w/dressing changes. Asked patient if she would like a list of [facility] outpt addiction/recovery providers and she agreed, gave this to PERRY Alva to include in patient's DC instructions. KYRA
--- NOTE | 2020-04-11 23:32 | PC.NURSE ---
Late entry from 04/10/2020 Evening Shift Note- Patient alert and oriented and able to make needs known to staff. Patient pleasent, calm, and cooperative with care. Pateint slept most of evening shift wake up only around 9pm for medications. Patient requested pain meds and some thing to eat at that time. PRN pain medications given as orderedd. patient tolerated without issue. dressing to neck c/d/i. Patient independent in room. safety measures in place. Patient agrees to call for assistance. call morris and phone within reach. will continue to monitor.
== END 2020-04-11 15:00 | disposition home or self-care (01) | DRG 317 ==
LOC: ED 19:06 → AC 20:38
PROVIDERS: Emergency Medicine; Admitting Provider Specialist; Emergency Provider Emergency Medicine; Visit Provider Specialist
PROC: 0K930ZZ Drainage of Left Neck Muscle, Open Approach (ICD-10-PCS; principal; 2020-04-08 22:15)
DX: M60.08 Infective myositis, other site (principal); L02.11 Cutaneous abscess of neck; F11.10 Opioid abuse, uncomplicated; E03.9 Hypothyroidism, unspecified; F41.9 Anxiety disorder, unspecified; F32.9 Major depressive disorder, single episode, unspecified; Z11.59 Encounter for screening for other viral diseases; B95.7 Other staphylococcus as the cause of diseases classified elsewhere
CPT/HCPCS: 10061; 36415; 70491; 80053; 80202; 81003; 81015; 83605; 84145; 85025; 87040; 87070; 87075; 87077; 87186; 87205; 87635; 96361; 96374; 99221; 99284; A9270; J0690; J1100; J1170; J2270; J2405; J2704

== ENCOUNTER 2022-03-04 05:54 | Emergency (ER) | payer OTHER, MEDICAID, SELFPAY ==
[2020-04-11 13:49] VITALS: BMI 31.8
[2022-03-04 06:05] VITALS: BP 119/83; PULSE 91; RESP 17; TEMP 37.2; O2SAT 96; BMI 34.9
--- NOTE | 2022-03-04 06:16 | ED.URI ---
HPI - URI/Sore Throat <Kimberly Salinas DO - Last Filed: 03/09/22 18:51> General Chief Complaint: Upper Respiratory Symptoms Stated Complaint: swollen throat, congestion, cough Time Seen by Provider: 03/04/22 06:11 Source: patient Mode of arrival: Ambulatory History of Present Illness HPI Narrative: Patient is a 46-year-old female with history of uterine cancer presenting today with sore throat ongoing the last 5 days. She says it hurts to swallow, but is able to do so. She has had significant decrease in oral intake. She has not had any fever chills or cough. She has had stuffy nose. She has been taking [id number] cold meds that include Mucinex. She states she just is not getting any better and does not feel well. She had a chest pain palpitations nausea vomiting abdominal pain or other symptoms. Related Data Previous Rx's Medication Instructions Recorded clindamycin HCl 300 mg capsule 300 mg PO TID Neck abscess #14 caps 04/11/20 oxycodone-acetaminophen 5 mg-325 1 tab PO Q6H PRN pain #14 tabs 04/11/20 mg tablet amoxicillin 875 mg-potassium 1 tab PO BID #20 tabs 03/04/22 clavulanate 125 mg tablet dexamethasone 20 mg tablet 20 mg PO DAILY #5 tabs 03/04/22 hydrocodone 5 mg-acetaminophen 325 1 tab PO Q6H PRN pain #14 tabs 03/04/22 mg tablet Allergies Allergy/AdvReac Type Severity Reaction Status Date / Time adhesive Allergy Unknown Verified 08/23/19 18:33 latex Allergy Unknown Verified 08/23/19 18:33 Sulfa (Sulfonamide Allergy Unknown Verified 08/23/19 18:33 Antibiotics) fentanyl AdvReac Severe Cardiac Verified 04/08/20 19:35 METAL Allergy Unknown Uncoded 08/23/19 18:33 Review of Systems <DO Tracie Campo Last Filed: 03/09/22 18:51> Review of Systems Narrative: GENERAL: Denies chills,fever HEENT: See HPI RESPIRATORY: Denies dyspnea, cough, wheezing CARDIOVASCULAR: Denies chest pain, palpitations GASTROINTESTINAL: Denies nausea, vomiting MUSCULOSKELETAL: Denies extremity pain, injury SKIN: No rash, no laceration, no pruritus NEUROLOGIC: Denies weakness, dizziness, headache, numbness 8 point review of systems is negative except for those stated above and HPI Patient History <Kimberly Salinas DO - Last Filed: 03/09/22 18:51> Medical History (Updated 03/04/22 @ 09:30 by Sherwin Pardo MD) Acquired hypothyroidism (07/24/16) Anxiety Chronic pain syndrome (02/11/17) Depression (07/07/16) Heroin abuse History of malignant neoplasm of cervix (07/07/16) History of squamous cell carcinoma (07/07/16) Migraine without aura and without status migrainosus, not intractable (01/10/16) Hiojr-Owlvrdfsr-Ksyzb (WPW) syndrome, 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) Surgical History History of cardiac radiofrequency ablation (RFA) Status post hysterectomy Status post knee surgery Social History household members: significant other Smoking Status: Current every day smoker alcohol intake: former substance use type: heroin and IV drugs Smoking Status: Current every day smoker Substance Use Type: heroin Exam <Kimberly Salinas DO - Last Filed: 03/09/22 18:51> Initial Vital Signs Initial Vital Signs: Vital Signs Temperature 99.0 F 03/04/22 06:05 Pulse Rate 91 H 03/04/22 06:05 Respiratory Rate 17 03/04/22 06:05 Blood Pressure 119/83 03/04/22 06:05 Pulse Oximetry 96 03/04/22 06:05 Oxygen Delivery Method 03/04/22 06:05 GENERAL: Alert 46-year-old female with muffled voice HEENT: Head atraumatic,EOMI, pupils reactive, face symmetric, moist mucous membranes PHARYNX: Significant swelling more on right side than left side uvula swelling without significant deviation mild erythema managing secretions and airway CARDIOVASCULAR: Regular rate and rhythm without murmurs, rubs or gallops. RESPIRATORY: Breath sounds equal bilaterally, no wheezes rales or rhonchi. ABDOMEN: Soft, nontender. Normoactive bowel sounds all 4 quadrants. No guarding or rebound. EXTREMITIES: Normal range of motion, no clubbing or edema. Neurovascularly intact NEUROLOGICAL: Alert and oriented x4 SKIN: Warm, dry, no laceration, no petechiae, no rashes or lesions. <Sherwin Pardo MD - Last Filed: 03/04/22 09:55> Initial Vital Signs Initial Vital Signs: Vital Signs Temperature 99.0 F 03/04/22 06:05 Pulse Rate 91 H 03/04/22 06:05 Respiratory Rate 17 03/04/22 06:05 Blood Pressure 119/83 03/04/22 06:05 Pulse Oximetry 96 03/04/22 06:05 Oxygen Delivery Method 03/04/22 06:05 Course <Kimberly Salinas DO - Last Filed: 03/09/22 18:51> Orders Ordered: Discontinued Medications Dexamethasone (Dexamethasone 10 Mg/Ml Vial) 10 mg IV NOW ONE Stop: 03/04/22 06:12 Last Admin: 03/04/22 06:23 Dose: 10 mg Documented By: PETERSON Sodium Chloride (Normal Saline 0.9%) 1,000 mls @ 1,000 mls/hr IV BOLUS ONE Stop: 03/04/22 07:10 Last Infusion: 03/04/22 09:28 Dose: 0 mls/hr Documented By: [facility] Admin: 03/04/22 06:21 Dose: 1,000 mls/hr Documented By: PETERSON Ampicillin Sodium/Sulbactam (Sodium 3 gm/ Sodium Chloride) 100 mls @ 100 mls/hr IV NOW ONE Stop: 03/04/22 06:15 Last Infusion: 03/04/22 07:43 Dose: 0 mls/hr Documented By: ILNadeen Admin: 03/04/22 06:25 Dose: 100 mls/hr Documented By: PETERSON Vital Signs Vital signs: Vital Signs - 8 hr 03/04/22 06:05 Temperature 99.0 F Pulse Rate 91 H Respiratory Rate 17 Blood Pressure 119/83 Pulse Oximetry 96 Oxygen Delivery Method Room Air <Sherwin Pardo MD - Last Filed: 03/04/22 09:55> Course Course Narrative: Care was assumed from Dr. Salinas about 7:00 a.m., change of shift. The patient has an apparent right peritonsillar abscess. On exam, she has oropharyngeal erythema, with edema and palpable induration to the right tonsil. She has no trismus. She has no stridor. She has no significant neck edema but does have bilateral lymphadenopathy. Rapid strep testing is positive. She has been treated with Unasyn, Decadron, and Toradol. The swelling or tonsil seems to be improving. She is feeling better. CT reveals multiple right palatine tonsil inflammatory phlegmons. The case was discussed with ENT, Dr. Owens. He agrees with continued medical management. He has agreed to see the patient in follow-up. She was also seen here in 2019 with an abscess in her tonsil. She is discharged on Augmentin, Decadron, Motrin and Hydrocodone.Virgilio ABREU 03/04/22@0955. Orders Ordered: Discontinued Medications Dexamethasone (Dexamethasone 10 Mg/Ml Vial) 10 mg IV NOW ONE Stop: 03/04/22 06:12 Last Admin: 03/04/22 06:23 Dose: 10 mg Documented By: PETERSON Sodium Chloride (Normal Saline 0.9%) 1,000 mls @ 1,000 mls/hr IV BOLUS ONE Stop: 03/04/22 07:10 Last Infusion: 03/04/22 09:28 Dose: 0 mls/hr Documented By: Admin: 03/04/22 06:21 Dose: 1,000 mls/hr Documented By: PETERSON Ampicillin Sodium/Sulbactam (Sodium 3 gm/ Sodium Chloride) 100 mls @ 100 mls/hr IV NOW ONE Stop: 03/04/22 06:15 Last Infusion: 03/04/22 07:43 Dose: 0 mls/hr Documented By: Admin: 03/04/22 06:25 Dose: 100 mls/hr Documented By: PETERSON Vital Signs Vital signs: Vital Signs - 8 hr 03/04/22 06:05 Temperature 99.0 F Pulse Rate 91 H Respiratory Rate 17 Blood Pressure 119/83 Pulse Oximetry 96 Oxygen Delivery Method Room Air MDM - URI/Sore Throat <Kimberly Salinas DO - Last Filed: 03/09/22 18:51> Lab Data Result diagrams: 03/04/22 06:17 03/04/22 06:17 Labs: Lab Results 03/04/22 03/04/22 03/04/22 Range/Units 06:01 06:17 06:17 WBC 12.8 H (4.5-11.0) X10^3/uL RBC 4.57 (4.0-5.2) X10^6/uL Hgb 12.2 (12.0-16.0) g/dL Hct 36.4 (36-46) % MCV 79.6 L (80-100) fL MCH 26.8 (26-34) PG MCHC 33.7 (30-36) % RDW 14.4 (11.6-14.8) % Plt Count 447 H (150-400) X10^3/uL Neut % (Auto) 78.6 H (50-75) % Lymph % (Auto) 11.4 L (25-40) % Shelby % (Auto) 7.5 (3-14) % Eos % (Auto) 2.1 (2-4) % Baso % (Auto) 0.4 (0-2) % Neut # (Auto) 53501 H (5285-6034) /uL Lymph # (Auto) 1500 (1893-9652) /uL Shelby # (Auto) 1000 H (0-900) /uL Eos # (Auto) 300 (0-450) /uL Baso # (Auto) 100 (0-100) /uL Sodium 137 (137-145) mmol/L Potassium 4.2 (3.4-5.1) mmol/L Chloride 101 (98-107) mmol/L Carbon Dioxide 30 (22-32) mmol/L BUN 11 (7-17) mg/dL Creatinine 0.64 (0.52-1.04) mg/dL Estimated GFR > 60 (>60) mL/min BUN/Creatinine Ratio 17.2 (6-22) Glucose 106 H (70-100) mg/dL Lactate (0.7-2.1) mmol/L Calcium 8.6 (8.4-10.2) mg/dL Total Bilirubin 0.8 (0.2-1.3) mg/dL AST 24 (14-36) IU/L ALT 22 (<35) IU/L Alkaline Phosphatase 113 (38-126) U/L Total Protein 8.1 (6.3-8.2) g/dL Albumin 3.8 (3.5-5.0) g/dL Globulin 4.3 H (1.7-4.1) g/dL Albumin/Globulin Ratio 0.9 L (1.0-2.8) Procalcitonin (<0.5) ng/mL SARS-CoV-2 (PCR) Negative (Negative) 03/04/22 03/04/22 Range/Units 06:17 06:17 WBC (4.5-11.0) X10^3/uL RBC (4.0-5.2) X10^6/uL Hgb (12.0-16.0) g/dL Hct (36-46) % MCV (80-100) fL MCH (26-34) PG MCHC (30-36) % RDW (11.6-14.8) % Plt Count (150-400) X10^3/uL Neut % (Auto) (50-75) % Lymph % (Auto) (25-40) % Shelby % (Auto) (3-14) % Eos % (Auto) (2-4) % Baso % (Auto) (0-2) % Neut # (Auto) (4773-0337) /uL Lymph # (Auto) (3255-2617) /uL Shelby # (Auto) (0-900) /uL Eos # (Auto) (0-450) /uL Baso # (Auto) (0-100) /uL Sodium (137-145) mmol/L Potassium (3.4-5.1) mmol/L Chloride (98-107) mmol/L Carbon Dioxide (22-32) mmol/L BUN (7-17) mg/dL Creatinine (0.52-1.04) mg/dL Estimated GFR (>60) mL/min BUN/Creatinine Ratio (6-22) Glucose (70-100) mg/dL Lactate 0.9 (0.7-2.1) mmol/L Calcium (8.4-10.2) mg/dL Total Bilirubin (0.2-1.3) mg/dL AST (14-36) IU/L ALT (<35) IU/L Alkaline Phosphatase (38-126) U/L Total Protein (6.3-8.2) g/dL Albumin (3.5-5.0) g/dL Globulin (1.7-4.1) g/dL Albumin/Globulin Ratio (1.0-2.8) Procalcitonin 0.04 (<0.5) ng/mL SARS-CoV-2 (PCR) (Negative) Point of Care Testing Rapid Strep A Positive MDM Narrative Medical decision making narrative: The patient has a muffled voice positive strep swelling of hard palate concerned for peritonsillar abscess. Although the swelling and edema is quite impressive. She is managing her airway and his secretions without any difficulty. The patient out to Dr. Pardo awaiting CT. <Sherwin Pardo MD - Last Filed: 03/04/22 09:55> Lab Data Labs: Lab Results 03/04/22 03/04/22 03/04/22 Range/Units 06:01 06:17 06:17 WBC 12.8 H (4.5-11.0) X10^3/uL RBC 4.57 (4.0-5.2) X10^6/uL Hgb 12.2 (12.0-16.0) g/dL Hct 36.4 (36-46) % MCV 79.6 L (80-100) fL MCH 26.8 (26-34) PG MCHC 33.7 (30-36) % RDW 14.4 (11.6-14.8) % Plt Count 447 H (150-400) X10^3/uL Neut % (Auto) 78.6 H (50-75) % Lymph % (Auto) 11.4 L (25-40) % Shelby % (Auto) 7.5 (3-14) % Eos % (Auto) 2.1 (2-4) % Baso % (Auto) 0.4 (0-2) % Neut # (Auto) 17267 H (1356-2296) /uL Lymph # (Auto) 1500 (8289-0543) /uL Shelby # (Auto) 1000 H (0-900) /uL Eos # (Auto) 300 (0-450) /uL Baso # (Auto) 100 (0-100) /uL Sodium 137 (137-145) mmol/L Potassium 4.2 (3.4-5.1) mmol/L Chloride 101 (98-107) mmol/L Carbon Dioxide 30 (22-32) mmol/L BUN 11 (7-17) mg/dL Creatinine 0.64 (0.52-1.04) mg/dL Estimated GFR > 60 (>60) mL/min BUN/Creatinine Ratio 17.2 (6-22) Glucose 106 H (70-100) mg/dL Lactate (0.7-2.1) mmol/L Calcium 8.6 (8.4-10.2) mg/dL Total Bilirubin 0.8 (0.2-1.3) mg/dL AST 24 (14-36) IU/L ALT 22 (<35) IU/L Alkaline Phosphatase 113 (38-126) U/L Total Protein 8.1 (6.3-8.2) g/dL Albumin 3.8 (3.5-5.0) g/dL Globulin 4.3 H (1.7-4.1) g/dL Albumin/Globulin Ratio 0.9 L (1.0-2.8) Procalcitonin (<0.5) ng/mL SARS-CoV-2 (PCR) Negative (Negative) 03/04/22 03/04/22 Range/Units 06:17 06:17 WBC (4.5-11.0) X10^3/uL RBC (4.0-5.2) X10^6/uL Hgb (12.0-16.0) g/dL Hct (36-46) % MCV (80-100) fL MCH (26-34) PG MCHC (30-36) % RDW (11.6-14.8) % Plt Count (150-400) X10^3/uL Neut % (Auto) (50-75) % Lymph % (Auto) (25-40) % Shelby % (Auto) (3-14) % Eos % (Auto) (2-4) % Baso % (Auto) (0-2) % Neut # (Auto) (6497-8490) /uL Lymph # (Auto) (5770-4820) /uL Shelby # (Auto) (0-900) /uL Eos # (Auto) (0-450) /uL Baso # (Auto) (0-100) /uL Sodium (137-145) mmol/L Potassium (3.4-5.1) mmol/L Chloride (98-107) mmol/L Carbon Dioxide (22-32) mmol/L BUN (7-17) mg/dL Creatinine (0.52-1.04) mg/dL Estimated GFR (>60) mL/min BUN/Creatinine Ratio (6-22) Glucose (70-100) mg/dL Lactate 0.9 (0.7-2.1) mmol/L Calcium (8.4-10.2) mg/dL Total Bilirubin (0.2-1.3) mg/dL AST (14-36) IU/L ALT (<35) IU/L Alkaline Phosphatase (38-126) U/L Total Protein (6.3-8.2) g/dL Albumin (3.5-5.0) g/dL Globulin (1.7-4.1) g/dL Albumin/Globulin Ratio (1.0-2.8) Procalcitonin 0.04 (<0.5) ng/mL SARS-CoV-2 (PCR) (Negative) Point of Care Testing Rapid Strep A Positive Discharge Plan Departure Patient Disposition: Home Clinical Impression: Abscess, peritonsillar Instructions: DI for Peritonsillar Abscess -- Adult Activity Restrictions/Additional Instructions: Advil 3 tablets every 6 hours as needed for pain. Hydrocodone every 6 hours for added pain control. Augmentin 2 times daily for 10 days. Dexamethasone 20mg daily for 5 days I am giving you contact information for Dr. Owens, ENT. Contact his office to arrange follow-up. Be sure his office is aware that you were just in the ER and Dr. Owens is anticipating seeing you. He would like to see you next week, if you feel your situation is worsening, he suggested he should see you right away. Return here as necessary. Prescriptions: New dexamethasone 20 mg tablet 20 mg PO DAILY Qty: 5 0RF hydrocodone-acetaminophen 5-325 mg tablet 1 tab PO Q6H PRN (Reason: pain) Qty: 14 0RF amoxicillin-pot clavulanate 875-125 mg tablet 1 tab PO BID Qty: 20 0RF No Action clindamycin HCl 300 mg capsule 300 mg PO TID Qty: 14 0RF oxycodone-acetaminophen 5-325 mg tablet 1 tab PO Q6H PRN (Reason: pain) Qty: 14 0RF Referrals: Ross Owens MD [Physician] - Visit Report Forms: Patient Portal/API
[2022-03-04] MEDS: SODIUM CHLORIDE 0.9% 1,000 ML 1000 ML IV (06:21)
[2022-03-04] MEDS: DEXAMETHASONE 10 MG/ML VIAL IV (06:23)
[2022-03-04] MEDS: AMPICILLIN/SULBACTAM 3 GM 3 GM in SODIUM CHLORIDE 0.9% 100 ML IV (06:25)
[2022-03-04 06:28] LABS: Add Manual Diff / Slide Review NO; Basophils Absolute Auto 100 /uL (0-100); Basophils Percent Auto 0.4 % (0-2); Eosinophils Absolute Auto 300 /uL (0-450); Eosinophils Percent Auto 2.1 % (2-4); Hematocrit 36.4 % (36-46); Hemoglobin 12.2 g/dL (12.0-16.0); Lymphocytes Absolute Auto 1500 /uL (1100-4500); Lymphocytes Percent Auto 11.4 % (25-40); Mean Corpuscular HGB Conc 33.7 % (30-36); Mean Corpuscular Hemoglobin 26.8 PG (26-34); Mean Corpuscular Volume 79.6 fL (80-100); Monocytes Absolute Auto 1000 /uL (0-900); Monocytes Percent Auto 7.5 % (3-14); Neutrophils Absolute Auto 10000 /uL (1500-7000); Neutrophils Percent Auto 78.6 % (50-75); Platelet Count 447 X10^3/uL (150-400); Red Blood Cell Count 4.57 X10^6/uL (4.0-5.2); Red Cell Distribution Width 14.4 % (11.6-14.8); White Blood Cell Count 12.8 X10^3/uL (4.5-11.0)
[2022-03-04 06:40] LABS: Lactate (Lactic Acid) 0.9 mmol/L (0.7-2.1)
[2022-03-04 06:41] LABS: COVID19 -Nasal RAPID Negative (Negative)
[2022-03-04 06:42] LABS: Alanine Aminotransferase 22 IU/L (<35); Albumin 3.8 g/dL (3.5-5.0); Albumin Globulin Ratio 0.9 (1.0-2.8); Alkaline Phosphatase 113 U/L (38-126); Aspartate Aminotransferase 24 IU/L (14-36); BUN Creatinine Ratio 17.2 (6-22); Bilirubin Total 0.8 mg/dL (0.2-1.3); Blood Urea Nitrogen 11 mg/dL (7-17); Calcium 8.6 mg/dL (8.4-10.2); Carbon Dioxide 30 mmol/L (22-32); Chloride 101 mmol/L (98-107); Estimated Glomerular Filt Rate > 60 mL/min (>60); Globulin 4.3 g/dL (1.7-4.1); Glucose 106 mg/dL (70-100); HEMOLYSIS < 15 (0-50); Potassium 4.2 mmol/L (3.4-5.1); Sodium 137 mmol/L (137-145); Total Protein 8.1 g/dL (6.3-8.2)
[2022-03-04 07:02] LABS: Procalcitonin 0.04 ng/mL (<0.5)
--- NOTE | 2022-03-04 07:54 | DI.CT.S_ITS ---
PROCEDURE: CT SOFT TISSUE NECK W CON INDICATIONS: right sided pharynx swelling TECHNIQUE: After the administration of intravenous contrast, 3.0 mm axial sections acquired from the sella to the aortic arch. Additional oblique axial 3.0 mm sections acquired through the pharynx. 3 mm thick coronal and sagittal reformats were generated. For radiation dose reduction, the following was used: automated exposure control. COMPARISON: [facility], CT, CT SOFT TISSUE NECK W CON, 04/08/2020, 18:01. [facility], CT, SOFT TISSUE NECK W CONTRAST, 07/04/2017, 18:24. [facility], CT, SOFT TISSUE NECK W CONTRAST, 06/14/2017, 9:57. FINDINGS: Image quality: Excellent. Lymph nodes: Multiple enlarged bilateral level 2, level 3 and level 4 lymph nodes which could be reactive or neoplastic. Vessels: Visualized vasculature appears patent. Neck spaces: The nasopharyngeal and palatine tonsils are enlarged bilaterally most pronounced in the right palatine tonsil. Ill-defined, 1.2 and 1.3 centimeter low-density areas noted within the enlarged right palatine tonsil compatible with inflammatory phlegmon/developed abscess. Tonsillar enlargement causes narrowing of the upper airway most pronounced at the level of the oropharynx. Mucosal swelling noted throughout the oropharynx and extending into the right pharynx to the level of the aryepiglottic folds. Left piriform sinus is opacified The vocal cords, false vocal cords, epiglottis, vallecula, and tongue base all appear normal. Extramucosal spaces appear unremarkable. Glands: The parotid and submandibular glands appear normal. Thyroid gland is within normal limits Miscellaneous: Visualized brain and orbits appear normal. Lung apices appear clear. Superficial soft tissues appear normal. Bones: No suspicious bony lesions. Visualized sinuses and mastoids appear unremarkable. IMPRESSION: 1. Bilateral enlargement of the nasopharyngeal and palatine tonsils most pronounced in the right palatine tonsil. Finding likely related to tonsillitis. 2. 1.2 and 1.3 centimeter low-density lesions in the right palatine tonsil compatible with inflammatory phlegmon/developing abscess. 3. Narrowing of the upper airway. 4. Bilateral level 2, level 3 and level 4 enlarged lymph nodes which could be reactive or neoplastic. Findings discussed with Dr. Pardo on March 04, 2022 at 8:41 a.m.. Dictated by: Patience Aguirre MD, PhD on 03/04/2022 at 8:31 Approved by: Patience Aguirre MD, PhD on 03/04/2022 at 8:43
[2022-03-04 09:54] VITALS: BP 157/86; PULSE 81; RESP 16; O2SAT 98
== END 2022-03-04 09:54 | disposition home or self-care (01) ==
PROVIDERS: Emergency Provider Emergency Medicine
DX: J36 Peritonsillar abscess (principal); Z20.822 Contact with and (suspected) exposure to COVID-19
CPT/HCPCS: 36415; 70491; 80053; 83605; 84145; 85025; 87040; 87635; 87880; 96365; 96375; 99284; C9803; J0295; J1100

== ENCOUNTER 2023-01-11 21:20 | Emergency (ER) | payer OTHER, MEDICAID, SELFPAY ==
[2020-04-11 13:49] VITALS: BMI 31.8
[2023-01-11 21:30] VITALS: PULSE 94; O2SAT 94
[2023-01-11 21:31] VITALS: BP 125/80; PULSE 98; RESP 20; TEMP 36.9; O2SAT 94; BMI 38.0
[2023-01-11 21:32] VITALS: BP 125/80; PULSE 88; O2SAT 93
[2023-01-11 22:00] VITALS: BP 136/82; PULSE 66; RESP 18; O2SAT 93
[2023-01-11] MEDS: predniSONE 20 MG TABLET 60 MG PO (22:11)
[2023-01-11] MEDS: ONDANSETRON 4 MG ODT SL (22:11)
[2023-01-11] MEDS: ALBUTEROL 2.5 MG/3 ML NEB (ADULT) INH (22:12)
[2023-01-11] MEDS: ALBUTEROL HFA MDI 60 PUFF/8 GM INHALER INH (22:12)
[2023-01-11] MEDS: ALBUTEROL/IPRATROPIUM 3 ML AMPUL INH (22:12)
--- NOTE | 2023-01-11 22:20 | ED.GENADULT ---
HPI - General Adult General Chief complaint: Shortness of Breath/Dyspnea Stated complaint: DYSPNEA Time Seen by Provider: 01/11/23 21:32 Source: patient Mode of arrival: Ambulatory History of Present Illness HPI narrative: 47-year-old woman with history of COPD/asthma who continues to smoke who notes that she has been having increasing dyspnea over the last 5 days. She feels that it started initially with allergy type symptoms. She does not describe fevers body aches, vomiting, chills. She does have a albuterol MDI at home but has found that is not working as well. In the past she is noted that things have rapidly progressed and she ends up needing additional medications including steroid so she comes in today for further evaluation Related Data Previous Rx's Medication Instructions Recorded clindamycin HCl 300 mg capsule 300 mg PO TID Neck abscess #14 caps 04/11/20 oxycodone-acetaminophen 5 mg-325 1 tab PO Q6H PRN pain #14 tabs 04/11/20 mg tablet amoxicillin 875 mg-potassium 1 tab PO BID #20 tabs 03/04/22 clavulanate 125 mg tablet dexamethasone 20 mg tablet 20 mg PO DAILY #5 tabs 03/04/22 hydrocodone 5 mg-acetaminophen 325 1 tab PO Q6H PRN pain #14 tabs 03/04/22 mg tablet albuterol sulfate 90 mcg/actuation 2 puff inhalation QID #8.5 grams 01/11/23 aerosol inhaler prednisone 20 mg tablet 40 mg PO DAILY #10 tabs 01/11/23 Allergies Allergy/AdvReac Type Severity Reaction Status Date / Time adhesive Allergy Unknown Verified 08/23/19 18:33 latex Allergy Unknown Verified 08/23/19 18:33 Sulfa (Sulfonamide Allergy Unknown Verified 08/23/19 18:33 Antibiotics) fentanyl AdvReac Severe Cardiac Verified 04/08/20 19:35 METAL Allergy Unknown Uncoded 08/23/19 18:33 Review of Systems Review of Systems Narrative: Remainder of complete review of systems is otherwise unremarkable except for that included in the HPI. 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) Surgical History History of cardiac radiofrequency ablation (RFA) Status post hysterectomy Status post knee surgery Social History household members: significant other Smoking Status: Current every day smoker alcohol intake: former substance use type: heroin and IV drugs Smoking Status: Current every day smoker Substance Use Type: heroin Exam Initial Vital Signs Initial Vital Signs: Vital Signs Temperature 98.4 F 01/11/23 21:31 Pulse Rate 98 H 01/11/23 21:31 Respiratory Rate 20 01/11/23 21:31 Blood Pressure 125/80 01/11/23 21:31 Pulse Oximetry 94 01/11/23 21:31 Oxygen Delivery Method Room Air 01/11/23 21:31 General: Healthy appearing, audible wheeze from the doorway but able to speak in complete sentences Able to give a complete and coherent history. Well-nourished well-developed HEENT: Moist mucous membranes, normal sclera with reactive pupils, Neck: No cervical adenopathy supple Respiratory: Lungs moderate wheeze in all lung braxton but relatively full and symmetrical air movement. No rhonchi. Cardiac: Regular rate and rhythm no murmurs no bruits Abdomen: Soft, nontender, good bowel tones, no flank pain Skin: Warm and dry, no rashes Neurologic: Grossly neurologically intact with no obvious asymmetries or abnormalities Extremities: No trauma, well perfused Psych: Cooperative, appropriate insight and affect Course Orders Ordered: Discontinued Medications Albuterol (Albuterol 2.5 Mg/3 Ml Neb (Adult)) 2.5 mg INH NOW ONE Stop: 01/11/23 21:52 Last Admin: 01/11/23 22:12 Dose: 2.5 mg Documented By: ZACKARY Albuterol (Albuterol Hfa Mdi 60 Puff/8 Gm Inhaler) 2 puff INH NOW ONE Stop: 01/11/23 21:52 Last Admin: 01/11/23 22:12 Dose: 2 puff Documented By: ZACKARY Albuterol/Ipratropium (Albuterol/Ipratropium 3 Ml Ampul) 3 ml INH NOW ONE Stop: 01/11/23 21:52 Last Admin: 01/11/23 22:12 Dose: 3 ml Documented By: ZACKARY Ondansetron HCl (Ondansetron 4 Mg Odt) 4 mg SL NOW ONE Stop: 01/11/23 21:52 Last Admin: 01/11/23 22:11 Dose: 4 mg Documented By: ASHLY Prednisone (Prednisone 20 Mg Tablet) 60 mg PO NOW ONE Stop: 01/11/23 21:52 Last Admin: 01/11/23 22:11 Dose: 60 mg Documented By: ASHLY Vital Signs Vital signs: Vital Signs - 8 hr 01/11/23 21:31 Temperature 98.4 F Pulse Rate 98 H Respiratory Rate 20 Blood Pressure 125/80 Pulse Oximetry 94 Oxygen Delivery Method Room Air Medical Decision Making MDM Narrative Medical decision making narrative: CC: Wheeze with cough. This is an acute finding with uncertain prognosis Complicating co-morbidities: Asthma/COPD with continued tobacco use Data collected from: patient, Differential considered: Viral upper respiratory infection, acute asthma exacerbation, bacterial pneumonia Exam documented above, pertinent findings include: Moderate wheeze with still moderate air movement with saturations in the upper 90s. Lab Test results independently reviewed as above. Pertinent findings: Independently reviewed EKG as above Imaging studies independently reviewed: Consultations: Treatments: 60 mg of oral prednisone, DuoNeb and albuterol nebulizer treatments Re-evaluations: 10:45pm still has scattered wheeze but significantly improved after treatments as above Discussion: 47-year-old woman with acute asthma exacerbation. This is likely complicated by her continued tobacco abuse and seasonal allergies. She is responded nicely to albuterol and oral steroids. She is given a prescription for 5 days of 40 mg of prednisone and an albuterol inhaler with spacer along with instructions and a refill for the inhaler. We did strongly recommend that she stops smoking. At this point she is in no respiratory distress oxygen saturations are in the upper 90s, there is no suggestion of bacterial infection, pneumothorax or life-threatening diagnosis would require additional evaluation, blood work or hospitalization. She is safe for discharge home. Questions are answered. Discharge Plan Departure Patient Disposition: Home Clinical Impression: Continuous tobacco abuse Acute asthma exacerbation Qualifiers: Asthma severity: mild Asthma persistence: intermittent Qualified Code(s): J45.21 - Mild intermittent asthma with (acute) exacerbation Instructions: DI for Asthma -- Adult Activity Restrictions/Additional Instructions: Thank you for coming in today I think that you are having an acute asthma exacerbation. Your clinical exam does not suggest bacterial pneumonia or need for antibiotics. You may have a mild virus that along with her allergies has started all of this wheezing In the emergency department you are given 60 mg of oral prednisone. You are given nebulized albuterol as well as nebulized DuoNeb. I have given you an albuterol puffer along with spacer. At home I would like you to complete 5 days of prednisone. Please use the albuterol puffer, 2 puffs every 6 hours as needed for wheezing You need to stop smoking. This will go a long way in preventing future breathing issues and wheezing. If you find that you are getting worse you do need to return to the ER Prescriptions: New prednisone 20 mg tablet 40 mg PO DAILY Qty: 10 0RF albuterol sulfate 90 mcg/actuation HFA aerosol inhaler 2 puff inhalation QID Qty: 8.5 0RF No Action clindamycin HCl 300 mg capsule 300 mg PO TID Qty: 14 0RF oxycodone-acetaminophen 5-325 mg tablet 1 tab PO Q6H PRN (Reason: pain) Qty: 14 0RF dexamethasone 20 mg tablet 20 mg PO DAILY Qty: 5 0RF hydrocodone-acetaminophen 5-325 mg tablet 1 tab PO Q6H PRN (Reason: pain) Qty: 14 0RF amoxicillin-pot clavulanate 875-125 mg tablet 1 tab PO BID Qty: 20 0RF Stand Alone Forms: Patient Portal/API
[2023-01-11 22:30] VITALS: BP 128/79; PULSE 73; O2SAT 92
== END 2023-01-11 22:52 | disposition home or self-care (01) ==
PROVIDERS: Emergency Provider Emergency Medicine
DX: J45.21 Mild intermittent asthma with (acute) exacerbation (principal); F17.200 Nicotine dependence, unspecified, uncomplicated
CPT/HCPCS: 94640; 99283; A9270; J7613

== ENCOUNTER 2023-06-25 16:27 | Emergency (ER) | payer OTHER, MEDICAID, SELFPAY ==
[2020-04-11 13:49] VITALS: BMI 31.8
[2023-06-25 16:36] VITALS: BP 134/74; PULSE 81; RESP 18; TEMP 36.6; O2SAT 96; BMI 38.0
--- NOTE | 2023-06-25 16:41 | DI.RAD.S_ITS ---
PROCEDURE: XR CHEST 2V INDICATIONS: cough TECHNIQUE: 2 views of the chest were acquired. COMPARISON: [facility], , XR CHEST 2V, 04/08/2018, 12:39. [facility], , CHEST 2 VIEW, 12/06/2010, 11:01. FINDINGS: Surgical changes and devices: None. Lungs and pleura: Lungs are clear. No pleural effusions or pneumothorax. Mediastinum: Mediastinal contours are normal. Heart size is normal. Bones and chest wall: No suspicious bony abnormalities. Soft tissues appear unremarkable. IMPRESSION: No acute cardiopulmonary abnormality is seen. Dictated by: Taurus Carlin M.D. on 06/25/2023 at 17:01 Approved by: Taurus Carlin M.D. on 06/25/2023 at 17:01
--- NOTE | 2023-06-25 18:34 | ED_ITS ---
HPI - General Adult General Chief complaint: Upper Respiratory Symptoms Stated complaint: cold t-14 Time Seen by Provider: 06/25/23 18:18 Source: patient Mode of arrival: Ambulatory History of Present Illness HPI narrative: 48-year-old female was here for evaluation for approximately 14 days of a cough and cold and other respiratory symptoms. She states that it started in her upper respiratory tract now it is down into her lungs where she is having some wheezing and coughing. Subjective fevers. She states this happens every time that she get sick and normally putting her on albuterol inhaler helps her symptoms tremendously. She had some albuterol which she is used over the past couple days but she is now out of this medication. Related Data Previous Rx's Medication Instructions Recorded albuterol sulfate 90 mcg/actuation 2 puff inhalation QID PRN 06/25/23 aerosol inhaler (Proventil HFA) shortness of breath or wheezing #8.5 grams benzonatate 100 mg capsule 100 mg PO Q6H PRN cough #20 caps 06/25/23 Allergies Allergy/AdvReac Type Severity Reaction Status Date / Time adhesive Allergy Unknown Verified 06/25/23 16:39 latex Allergy Unknown Verified 06/25/23 16:39 Sulfa (Sulfonamide Allergy Unknown Verified 06/25/23 16:39 Antibiotics) fentanyl AdvReac Severe Cardiac Verified 06/25/23 16:39 METAL Allergy Unknown Uncoded 06/25/23 16:39 Review of Systems Constitutional Constitutional: Reports system reviewed and no additional complaints, except as documented ENT Ears, Nose, Mouth, and Throat: Reports system reviewed and no additional complaints, except as documented Respiratory Respiratory: Reports system reviewed and no additional complaints, except as documented Gastrointestinal Gastrointestinal: Reports system reviewed and no additional complaints, except as documented Integumentary/Breasts Skin/Breast: Reports system reviewed and no additional complaints, except as documented Neurologic Neurologic: Reports system reviewed and no additional complaints, except as documented Hematologic/Lymphatic On Anticoagulants: No Patient History Medical History Heroin abuse Migraine without aura and without status migrainosus, not intractable (01/10/16) Cwnzz-Jutrrkkpy-Nagyf (WPW) syndrome, 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) History of malignant neoplasm of cervix (07/07/16) History of squamous cell carcinoma (07/07/16) Depression (07/07/16) Acquired hypothyroidism (07/24/16) Chronic pain syndrome (02/11/17) Anxiety Surgical History Status post knee surgery History of cardiac radiofrequency ablation (RFA) Status post hysterectomy Social History household members: significant other Smoking Status: Current every day smoker alcohol intake: former substance use type: heroin and IV drugs Smoking Status: Current every day smoker alcohol intake frequency: other Substance Use Type: heroin Exam Initial Vital Signs Initial Vital Signs: Vital Signs Temperature 98 F 06/25/23 16:36 Pulse Rate 81 06/25/23 16:36 Respiratory Rate 18 06/25/23 16:36 Blood Pressure 134/74 06/25/23 16:36 Pulse Oximetry 96 06/25/23 16:36 Oxygen Delivery Method Room Air 06/25/23 16:36 HENMT Head: normal to inspection and normocephalic Resp Effort & Inspection: normal respiratory effort Auscultation: clear to auscultation bilaterally Cardio Rate: regular rate Rhythm: regular rhythm GI Inspection: normal to inspection Course Orders Ordered: ED Orders 06/25/23 16:41 Chest [XR chest 2V] Stat Vital Signs Vital signs: Vital Signs - 8 hr 06/25/23 16:36 06/25/23 18:45 Temperature 98 F Pulse Rate 81 76 Respiratory Rate 18 18 Blood Pressure 134/74 124/76 Pulse Oximetry 96 97 Oxygen Delivery Method Room Air Room Air Medical Decision Making Imaging Data Chest x-ray: Radiologist's Impression: PROCEDURE: XR CHEST 2V INDICATIONS: cough TECHNIQUE: 2 views of the chest were acquired. COMPARISON: [facility], XR CHEST 2V, 04/08/2018, 12:39. [facility], CHEST 2 VIEW, 12/06/2010, 11:01. FINDINGS: Surgical changes and devices: None. Lungs and pleura: Lungs are clear. No pleural effusions or pneumothorax. Mediastinum: Mediastinal contours are normal. Heart size is normal. Bones and chest wall: No suspicious bony abnormalities. Soft tissues appear unremarkable. IMPRESSION: No acute cardiopulmonary abnormality is seen. MDM Narrative Medical decision making narrative: Not hypoxic, not tachypneic, chest x-ray is negative. Has no wheezing on her exam today. There was no indication for antibiotics however she states that albuterol has helped her symptoms in the past and also over the past couple days but she is just out of the medicine. Will provide a prescription for albuterol. Do suspect that her symptoms will improve with time. She was given return precautions. She expressed understanding and agreement with plan. Discharge Plan Departure Patient Disposition: Home Clinical Impression: Bronchitis Instructions: DI for Acute Bronchitis Activity Restrictions/Additional Instructions: I do recommend that you take Tylenol/ibuprofen for any fevers or body aches. You can try cfiv-ziw-[id number] antihistamine such as Claritin/Leia/Zyrtec. Take the other medications as needed. Return to the emergency department for new symptoms. Prescriptions: New albuterol sulfate [Proventil HFA] 90 mcg/actuation HFA aerosol inhaler 2 puff inhalation QID PRN (Reason: shortness of breath or wheezing) Qty: 8.5 2RF benzonatate 100 mg capsule 100 mg PO Q6H PRN (Reason: cough) Qty: 20 0RF Stand Alone Forms: Patient Portal/API
[2023-06-25 18:45] VITALS: BP 124/76; PULSE 76; RESP 18; O2SAT 97
== END 2023-06-25 18:47 | disposition home or self-care (01) ==
PROVIDERS: Emergency Provider Emergency Medicine
DX: J20.9 Acute bronchitis, unspecified (principal)
CPT/HCPCS: 71046; 99283

== ENCOUNTER 2024-12-11 17:22 | Inpatient (IN) | payer OTHER, SELFPAY ==
[2020-04-11 13:49] VITALS: BMI 31.8
[2024-12-11] VITALS (19 sets, daily range): BP systolic 97–115; BP diastolic 56–75; PULSE 64–99; RESP 13–22; TEMP 36.6; O2SAT 87–98; BMI 43.3
--- NOTE | 2024-12-11 17:47 | EKG_ITS ---
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
--- NOTE | 2024-12-11 17:47 | DI.RAD.S_ITS ---
PROCEDURE: XR CHEST 1V INDICATIONS: Shortness of breath TECHNIQUE: One view of the chest was acquired. COMPARISON: [facility], CR, XR CHEST 2V, 06/25/2023, 16:51. FINDINGS: Surgical changes and devices: None. Lungs and pleura: Mildly increased bronchovascular markings in bilateral hilar region are seen. Mild bronchial wall thickening is also noted. No definite focal infiltrate. No pleural effusions or pneumothorax. Mediastinum: Mediastinal contours appear normal. Heart size is normal. Bones and chest wall: No suspicious bony lesions. Overlying soft tissues appear unremarkable. IMPRESSION: Suggestion of mild reactive airway disease such as bronchitis or viral illness. No definite focal infiltrate. No pleural effusion or pneumothorax. Dictated by: Gian Kern M.D. on 12/11/2024 at 18:13 Approved by: Gian Kern M.D. on 12/11/2024 at 18:14
[2024-12-11] MEDS: ALBUTEROL/IPRATROPIUM 3 ML AMPUL INH (18:13)
[2024-12-11 18:30] LABS: Add Manual Diff / Slide Review NO; Basophils Absolute Auto 0 /uL (0-100); Basophils Percent Auto 0.5 % (0-2); Eosinophils Absolute Auto 0 /uL (0-450); Eosinophils Percent Auto 0.1 % (2-4); Hematocrit 43.2 % (36-46); Hemoglobin 14.4 g/dL (12.0-16.0); Lymphocytes Absolute Auto 1400 /uL (1100-4500); Lymphocytes Percent Auto 20.9 % (25-40); Mean Corpuscular HGB Conc 33.3 % (30-36); Mean Corpuscular Hemoglobin 28.4 PG (26-34); Mean Corpuscular Volume 85.3 fL (80-100); Monocytes Absolute Auto 700 /uL (0-900); Monocytes Percent Auto 10.1 % (3-14); Neutrophils Absolute Auto 4600 /uL (1500-7000); Neutrophils Percent Auto 68.4 % (50-75); Platelet Count 234 X10^3/uL (150-400); Red Blood Cell Count 5.06 X10^6/uL (4.0-5.2); Red Cell Distribution Width 14.7 % (11.6-14.8); White Blood Cell Count 6.6 X10^3/uL (4.5-11.0)
--- NOTE | 2024-12-11 18:34 | PC.NURSE ---
Pt reports feeling better after the duoneb treatment. Pt lung sounds remain coarse with some expiratory wheezes in anterior braxton bilaterally. Trial off oxygen and patient is 92% on RA currently. She is A&O. Respirations are normal depth and WNL.
[2024-12-11 18:36] LABS: INR 1.1 (0.9-1.3); Prothrombin Time 12.2 SECONDS (9.4-12.5)
[2024-12-11 18:40] LABS: Lactate (Lactic Acid) 1.5 mmol/L (0.7-2.1)
[2024-12-11 18:41] LABS: Alanine Aminotransferase 94 IU/L (<35); Albumin 4.2 g/dL (3.5-5.0); Albumin Globulin Ratio 0.9 (1.0-2.8); Alkaline Phosphatase 94 U/L (38-126); Aspartate Aminotransferase 49 IU/L (14-36); Bilirubin Total 1.2 mg/dL (0.2-1.3); Blood Urea Nitrogen 14 mg/dL (7-17); Carbon Dioxide 29 mmol/L (22-32); Chloride 99 mmol/L (98-107); Estimated Glomerular Filt Rate > 60 mL/min (>60); Globulin 4.5 g/dL (1.7-4.1); Glucose 104 mg/dL (70-100); HEMOLYSIS < 15 (0-50); Potassium 4.3 mmol/L (3.4-5.1); Sodium 136 mmol/L (137-145); Total Protein 8.7 g/dL (6.3-8.2)
[2024-12-11 18:53] LABS: NT-proBNP (BNP-Adult 18+) 130 pg/mL (<125); Troponin I < 0.012 ng/mL (0.01-0.034)
--- NOTE | 2024-12-11 19:24 | PC.NURSE ---
Pt tried off oxygen. Oxygen saturation dropped to 87% on RA. Placed on 3L via NC and now at 92%.
--- NOTE | 2024-12-11 20:09 | ED_ITS ---
HPI - SOB/Dyspnea General Chief Complaint: Shortness of Breath/Dyspnea Stated Complaint: thinks has pneumonia Time Seen by Provider: 12/11/24 20:09 History of Present Illness HPI Narrative: 49-year-old female with a past medical history of COPD/asthma current daily smoker presents to the emergency department for shortness of breath, she states that she has been having upper respiratory symptoms such as cough wheezing shortness of breath ongoing persistent for the past month, she is worried she may have pneumonia, however she denies any other symptoms such as headache visual disturbances chest pain fever chills nausea vomiting abdominal pain or any other GI/ symptoms time. , patient does have a history of drug use, is currently on methadone. Related Data Previous Rx's Medication Instructions Recorded albuterol sulfate 90 mcg/actuation 2 puff inhalation QID PRN 06/25/23 aerosol inhaler (Proventil HFA) shortness of breath or wheezing #8.5 grams benzonatate 100 mg capsule 100 mg PO Q6H PRN cough #20 caps 06/25/23 Allergies Allergy/AdvReac Type Severity Reaction Status Date / Time adhesive Allergy Unknown Verified 06/25/23 16:39 latex Allergy Unknown Verified 06/25/23 16:39 Sulfa (Sulfonamide Allergy Unknown Verified 06/25/23 16:39 Antibiotics) fentanyl AdvReac Severe Cardiac Verified 06/25/23 16:39 METAL Allergy Unknown Uncoded 06/25/23 16:39 Review of Systems Review of Systems Narrative: General: Denies fever, chills, weight loss HEENT: Denies headache, eye drainage, eye irritation, head trauma, sore throat, voice change Cardiovascular: Denies any chest pain, palpitations, tachycardia Respiratory: Positive shortness of breath, cough, wheeze, GI/: Denies any abdominal pain, nausea, vomiting, diarrhea, bright red blood per rectum, melanotic stools, urinary frequency, urinary retention, dysuria, hematuria MSK: Denies any joint pain, muscle pains, swelling Skin: Denies any rashes, lesions, discoloration Neuro: Denies any headache, lightheadedness, dizziness, fainting, weakness Psych: Denies SI/HI Patient History Medical History (Updated 12/11/24 @ 22:29 by Jose A Julien DO) Heroin abuse Migraine without aura and without status migrainosus, not intractable (01/10/16) Mjmzy-Yjhztkeot-Oulrw (WPW) syndrome, 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) History of malignant neoplasm of cervix (07/07/16) History of squamous cell carcinoma (07/07/16) Depression (07/07/16) Acquired hypothyroidism (07/24/16) Chronic pain syndrome (02/11/17) Anxiety Surgical History Status post knee surgery History of cardiac radiofrequency ablation (RFA) Status post hysterectomy Social History household members: significant other Smoking Status: Current every day smoker alcohol intake: former substance use type: heroin and IV drugs Smoking Status: Current every day smoker tobacco type: cigarettes alcohol intake frequency: other Exam Narrative Exam Narrative: General: Cooperative, well-developed, not in acute distress HEENT: Normocephalic, atraumatic, PERRLA, normal sclera, eyelids normal Neck: Active full range of motion, atraumatic Chest: Normal to inspection, negative crepitus, no overlying erythema ecchymosis Respiratory: On evaluation patient on 2 L nasal cannula, mild expiratory wheezes but protecting airway speaking in full sentences mild dyspnea with conversation Cardiology: Regular rate rhythm negative gallop, murmur, rubs GI/: No tenderness to palpation, soft, non rigid, normal to inspection, exam deferred MSK: Full active range of motion in all 4 extremities, atraumatic, no tenderness to palpation of any bony prominences Skin: No rashes or lesions noted Neuro: Alert awake oriented x3, moves all 4 extremities spontaneously, cranial nerves intact, able to answer all questions appropriately follows commands appropriately Psych: Cooperative, negative suicidal or homicidal ideations Initial Vital Signs Initial Vital Signs: Vital Signs Temperature 97.9 F 12/11/24 17:36 Pulse Rate 99 H 12/11/24 17:36 Respiratory Rate 18 12/11/24 17:36 Blood Pressure 114/72 12/11/24 17:36 Pulse Oximetry 87 L 12/11/24 17:36 Oxygen Delivery Method Room Air 12/11/24 17:36 Course Orders Ordered: ED Orders 12/11/24 17:47 XR chest 1V Stat EKG-12 Lead Stat Measure peak expiratory flow ONCE RT Consult Eval and Treat NOW 12/11/24 18:20 Complete Blood Count AUTO DIFF Stat Comprehensive Metabolic Panel Stat Lactate (Lactic Acid) Stat NT-proBNP (BNP-Adult 18+) Stat Prothrombin Time INR Stat Troponin I Stat 12/11/24 20:11 CT angio chest PE protocol Stat 12/11/24 20:57 Covid-19 + FLU A/B + RSV - PCR Stat Discontinued Medications Albuterol (Albuterol 2.5 Mg/3 Ml Neb (Adult)) 2.5 mg INH NOW ONE Stop: 12/11/24 20:15 Last Admin: 12/11/24 20:25 Dose: 2.5 mg Documented By: DAVID Albuterol/Ipratropium (Albuterol/Ipratropium 3 Ml Ampul) 3 ml INH NOW ONE Stop: 12/11/24 18:07 Last Admin: 12/11/24 18:13 Dose: 3 ml Documented By: TERA Magnesium Sulfate (Magnesium Sulfate) 2 gm in 50 mls @ 150 mls/hr IV NOW ONE Stop: 12/11/24 20:32 Last Infusion: 12/11/24 20:53 Dose: Infused Documented By: ELBA Co-signed By: LESLYE Admin: 12/11/24 20:20 Dose: 150 mls/hr Documented By: Co-signed By: ELBA Ceftriaxone Sodium 1,000 mg/ (Sodium Chloride) 100 mls @ 200 mls/hr IV NOW ONE Stop: 12/11/24 22:26 Last Admin: 12/11/24 22:39 Dose: 200 mls/hr Documented By: MARÍA Doxycycline Hyclate 100 mg/ (Sodium Chloride) 100 mls @ 100 mls/hr IV NOW ONE Stop: 12/11/24 22:26 Methylprednisolone (Methylprednisolone 125 Mg/2 Ml Vial) 125 mg IV NOW ONE Stop: 12/11/24 20:14 Last Admin: 12/11/24 20:20 Dose: 125 mg Documented By: Vital Signs Vital signs: Vital Signs - 8 hr 12/11/24 17:36 12/11/24 18:04 12/11/24 18:04 Temperature 97.9 F Pulse Rate 99 H 83 Respiratory Rate 18 Blood Pressure 114/72 Pulse Oximetry 87 L 98 95 Oxygen Delivery Method Room Air Nasal Cannula Oxygen Flow Rate 2 Fraction of Inspired Oxygen 12/11/24 18:08 12/11/24 18:08 12/11/24 18:13 Temperature Pulse Rate 80 78 Respiratory Rate 22 18 Blood Pressure 115/68 Pulse Oximetry 93 95 Oxygen Delivery Method Nasal Cannula Oxygen Flow Rate 2 Fraction of Inspired Oxygen 28 12/11/24 18:30 12/11/24 18:30 12/11/24 19:00 Temperature Pulse Rate 79 73 Respiratory Rate 19 21 Blood Pressure 106/58 L Pulse Oximetry 95 91 Oxygen Delivery Method Room Air Oxygen Flow Rate Fraction of Inspired Oxygen 12/11/24 19:00 12/11/24 19:25 12/11/24 19:30 Temperature Pulse Rate Respiratory Rate Blood Pressure 103/62 108/68 Pulse Oximetry 92 Oxygen Delivery Method Nasal Cannula Oxygen Flow Rate 3 Fraction of Inspired Oxygen 12/11/24 19:30 12/11/24 20:00 12/11/24 20:00 Temperature Pulse Rate 69 71 Respiratory Rate 22 18 Blood Pressure 104/67 Pulse Oximetry 92 90 L Oxygen Delivery Method Oxygen Flow Rate Fraction of Inspired Oxygen 12/11/24 20:27 12/11/24 20:30 12/11/24 20:30 Temperature Pulse Rate 69 Respiratory Rate 13 Blood Pressure 98/56 L Pulse Oximetry 91 91 Oxygen Delivery Method Oxygen Flow Rate Fraction of Inspired Oxygen 21 12/11/24 20:56 12/11/24 20:56 12/11/24 21:00 Temperature Pulse Rate 77 Respiratory Rate 16 Blood Pressure 103/61 103/66 Pulse Oximetry 93 Oxygen Delivery Method Nasal Cannula Oxygen Flow Rate 2 Fraction of Inspired Oxygen 12/11/24 21:00 12/11/24 21:30 12/11/24 22:00 Temperature Pulse Rate 81 75 75 Respiratory Rate 14 18 22 Blood Pressure Pulse Oximetry 92 93 93 Oxygen Delivery Method Oxygen Flow Rate Fraction of Inspired Oxygen 12/11/24 22:07 12/11/24 22:07 Temperature Pulse Rate 72 Respiratory Rate 17 Blood Pressure 97/58 L Pulse Oximetry 94 Oxygen Delivery Method Oxygen Flow Rate Fraction of Inspired Oxygen MDM - SOB/Dyspnea Differential Diagnosis Differential diagnosis: Likely acute exacerbation of chronic obstructive airways disease, congestive heart failure, community acquired pneumonia, pulmonary embolism and other (ACS, electrolyte abnormality,) Lab Data 12/11/24 18:20 12/11/24 18:20 Labs: Lab Results 12/11/24 12/11/24 Range/Units 18:20 20:57 WBC 6.6 (4.5-11.0) X10^3/uL RBC 5.06 (4.0-5.2) X10^6/uL Hgb 14.4 (12.0-16.0) g/dL Hct 43.2 (36-46) % MCV 85.3 (80-100) fL MCH 28.4 (26-34) PG MCHC 33.3 (30-36) % RDW 14.7 (11.6-14.8) % Plt Count 234 (150-400) X10^3/uL Neut % (Auto) 68.4 (50-75) % Lymph % (Auto) 20.9 L (25-40) % [place] % (Auto) 10.1 (3-14) % Eos % (Auto) 0.1 L (2-4) % Baso % (Auto) 0.5 (0-2) % Neut # (Auto) 4600 (5019-2856) /uL Lymph # (Auto) 1400 (2869-9796) /uL [place] # (Auto) 700 (0-900) /uL Eos # (Auto) 0 (0-450) /uL Baso # (Auto) 0 (0-100) /uL PT 12.2 (9.4-12.5) SECONDS INR 1.1 (0.9-1.3) Sodium 136 L (137-145) mmol/L Potassium 4.3 (3.4-5.1) mmol/L Chloride 99 (98-107) mmol/L Carbon Dioxide 29 (22-32) mmol/L BUN 14 (7-17) mg/dL Creatinine 0.70 (0.52-1.04) mg/dL Estimated GFR > 60 (>60) mL/min BUN/Creatinine Ratio 20.0 (6-22) Glucose 104 H (70-100) mg/dL Lactate 1.5 (0.7-2.1) mmol/L Calcium 9.0 (8.4-10.2) mg/dL Total Bilirubin 1.2 (0.2-1.3) mg/dL AST 49 H (14-36) IU/L ALT 94 H (<35) IU/L Alkaline Phosphatase 94 (38-126) U/L Troponin I < 0.012 (0.01-0.034) ng/mL NT-Pro-B Natriuret Pep 130 H (<125) pg/mL Total Protein 8.7 H (6.3-8.2) g/dL Albumin 4.2 (3.5-5.0) g/dL Globulin 4.5 H (1.7-4.1) g/dL Albumin/Globulin Ratio 0.9 L (1.0-2.8) SARS-CoV-2 (PCR) Negative (Negative) Influenza A (RT-PCR) Flu a negative (NEGATIVE) Influenza B (RT-PCR) Flu b positive H (NEGATIVE) RSV (PCR) Negative (Negative) Imaging Data Chest x-ray: Radiologist's Impression: [address] [address] XRay Report Signed Patient: Amalia Su MR#: [id number] : 1975 Acct:[id number] Age/Sex: 49 / F Date of Service: 12/11/24 Loc: ED Accession Number: [id number] Procedure: XR chest 1V Ordering Provider: Dixie Lowe D.O. PROCEDURE: XR CHEST 1V INDICATIONS: Shortness of breath TECHNIQUE: One view of the chest was acquired. COMPARISON: [facility], , XR CHEST 2V, 06/25/2023, 16:51. FINDINGS: Surgical changes and devices: None. Lungs and pleura: Mildly increased bronchovascular markings in bilateral hilar region are seen. Mild bronchial wall thickening is also noted. No definite focal infiltrate. No pleural effusions or pneumothorax. Mediastinum: Mediastinal contours appear normal. Heart size is normal. Bones and chest wall: No suspicious bony lesions. Overlying soft tissues appear unremarkable. IMPRESSION: Suggestion of mild reactive airway disease such as bronchitis or viral illness. No definite focal infiltrate. No pleural effusion or pneumothorax. CT scan - chest: Radiologist's Impression: [address] [address] [address] Scan Report Signed Patient: Amalia Su MR#: [id number] : 1975 Acct:[id number] Age/Sex: 49 / F Date of Service: 12/11/24 Loc: ED Accession Number: [id number] Procedure: CT angio chest PE protocol Ordering Provider: Jose A Julien D.O. PROCEDURE: CT ANGIO CHEST PE PROTOCOL INDICATIONS: Hypoxemia, cough, shortness of breath TECHNIQUE: After the administration of intravenous contrast, 2 mm thick sections acquired from the pulmonary apices to the posterior costophrenic angles. 3-dimensional maximum intensity projection (MIP) coronal and sagittal reformats were then acquired through the thorax. For radiation dose reduction, the following was used: automated exposure control, adjustment of mA and/or kV according to patient size. COMPARISON: None. FINDINGS: Image quality: Nondiagnostic due to missed bolus. Pulmonary arteries: Normal caliber pulmonary arteries. Lobar or segmental filling defects cannot be excluded due to mixing artifact and suboptimal pulmonary arterial tree opacification. Lower Neck: No enlarged lymph nodes. Thyroid: Normal CT appearance. Axillae: No enlarged lymph nodes. Chest Wall: Unremarkable. Bones: Unremarkable. Lungs and Pleura: Bilateral diffuse bronchial wall thickening. Consolidative changes present anteromedial right middle lobe. Mild reticulonodular opacity at the posterior left lower lung. No ground-glass opacities or pleural effusions. Heart: Heart size is normal. No pericardial effusion. Thoracic Vessels: No aortic aneurysm. Mediastinum and Gaby: Several borderline mediastinal lymph nodes including AP window, precarinal, subcarinal, and right hilar. Esophagus: No wall thickening. Tiny hiatal hernia. Upper Abdomen: Visualized upper abdomen solid organs and bowel loops appear normal. IMPRESSION: Nondiagnostic study for pulmonary embolus due to multiple factors. Diffuse moderate bronchial wall thickening with minor airspace opacity and consolidative changes most consistent with bronchitis and early or mild bronchopneumonia. Reactive mediastinal adenopathy. ECG Data Interpretation: EKG interpreted ED physician sinus 77 beats per minute QTC [address] changes no STEMI MDM Narrative Medical decision making narrative: 49-year-old female with a history of drug abuse on methadone, COPD/asthma current everyday smoker presenting for shortness of breath cough ongoing persistent for the past month. Upon initial evaluation patient hypoxic at 87 % on room air, did require 2 L nasal cannula with improvement. Patient's chest x- ray only showing viral bronchitis therefore obtain CT angio given persistent hypoxemia. CTA showing bilateral diffuse bronchial wall thickening with consolidative changes present to the anterior medial right middle lobe with mild reticular nodule opacities at the posterior left lower lung Patient did receive 1 DuoNeb 1 albuterol 2 g Mag 125 Solu-Medrol with mild improvement of her conversational dyspnea, she was attempting to wean off the oxygen however patient desatted to 87%. Therefore placed on 2 L nasal cannula. Patient was given Rocephin doxy for the consolidations noted to the CTA, she was also found to be influenza B positive. The patient's management plan was discussed Dr. Nelson, who agrees to admit the patient to their service and assumes care of this patient at this time. Full admission orders will be placed by the primary team. Is requesting order of Tamiflu we will place Discharge Plan Departure Patient Disposition: Admitted As Inpatient Clinical Impression: Acute hypoxemic respiratory failure, Bronchopneumonia, Influenza B
[2024-12-11] MEDS: methylPREDNISolone 125 MG/2 ML VIAL IV (20:20)
[2024-12-11] MEDS: MAGNESIUM SULFATE 2 GM/50 ML PIGGYBACK IV (20:20)
[2024-12-11] MEDS: ALBUTEROL 2.5 MG/3 ML NEB (ADULT) INH (20:25)
[2024-12-11 21:38] LABS: Influenza A - CEPHEID Flu A NEGATIVE (NEGATIVE); Influenza B - CEPHEID Flu B POSITIVE (NEGATIVE); Respiratory Syncytial Virus Negative (Negative)
[2024-12-11 21:39] LABS: COVID-19 CEPHEID 4-PLEX PCR Negative (Negative)
[2024-12-11] MEDS: cefTRIAXone 1,000 MG in SODIUM CHLORIDE 0.9% 100 ML 200 MG IV (22:39)
[2024-12-11] MEDS: OSELTAMIVIR 75 MG CAPSULE PO (23:20)
[2024-12-11] MEDS: methylPREDNISolone 125 MG/2 ML VIAL 40 MG IV (23:20)
[2024-12-11] MEDS: DOXYCYCLINE 100 MG in SODIUM CHLORIDE 0.9% 100 ML IV (23:21)
[2024-12-12] VITALS (7 sets, daily range): BP systolic 103–116; BP diastolic 67–74; PULSE 65–85; RESP 15–20; TEMP 35.7–36.4; O2SAT 90–97; BMI 43.3
[2024-12-12] MEDS: NICOTINE 21 MG PATCH TOP (00:49)
--- NOTE | 2024-12-12 01:09 | PC.NURSE ---
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 Ambulatory w/ SBA. Patient is AxOx4, VSS, SpO2 93% on 4L NC. Reports pain upon inspiration & SOB, although it has improved. Coarse crackles heard throughout. RT educated on IS. MD spoke with patient via algaaciq cart, patient verbalized understanding of plan of care. Nicotine patch placed on JUSTIN. 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
[2024-12-12] MEDS: methylPREDNISolone 125 MG/2 ML VIAL 40 MG IV ×4 (04:59→22:51)
[2024-12-12 05:22] LABS: Add Manual Diff / Slide Review NO; Basophils Absolute Auto 0 /uL (0-100); Basophils Percent Auto 0.3 % (0-2); Eosinophils Absolute Auto 0 /uL (0-450); Hematocrit 41.8 % (36-46); Lymphocytes Absolute Auto 600 /uL (1100-4500); Lymphocytes Percent Auto 11.8 % (25-40); Mean Corpuscular HGB Conc 33.5 % (30-36); Mean Corpuscular Hemoglobin 28.3 PG (26-34); Mean Corpuscular Volume 84.5 fL (80-100); Monocytes Absolute Auto 100 /uL (0-900); Monocytes Percent Auto 1.3 % (3-14); Neutrophils Absolute Auto 4200 /uL (1500-7000); Neutrophils Percent Auto 86.6 % (50-75); Platelet Count 239 X10^3/uL (150-400); Red Blood Cell Count 4.95 X10^6/uL (4.0-5.2); Red Cell Distribution Width 14.5 % (11.6-14.8); White Blood Cell Count 4.9 X10^3/uL (4.5-11.0)
[2024-12-12 05:32] LABS: BUN Creatinine Ratio 19.7 (6-22); Blood Urea Nitrogen 13 mg/dL (7-17); Calcium 9.1 mg/dL (8.4-10.2); Carbon Dioxide 31 mmol/L (22-32); Chloride 98 mmol/L (98-107); Estimated Glomerular Filt Rate > 60 mL/min (>60); Glucose 162 mg/dL (70-100); HEMOLYSIS < 15 (0-50); Potassium 4.5 mmol/L (3.4-5.1); Sodium 137 mmol/L (137-145)
--- NOTE | 2024-12-12 05:42 | P.HP_ITS ---
History of Present Illness History of Present Illness Chief complaint: thinks has pneumonia Narrative: 49-year-old female with past medical history of COPD and asthma non-O2 dependent, active tobacco abuser, drug use on methadone, Bvfxj-Qczqobjbn-Wffbi syndrome, hypothyroidism and anxiety presents with shortness of breath. Per the patient's report, the patient started to have upper respiratory symptoms such as coughing, wheezing, shortness of breath over the last month. The patient however did not seek help but today her symptoms worsen especially her shortness of breath and wheezing. Otherwise the patient denies any nausea, vomiting, fever, chills, chest pain or syncope. In the emergency room, the patient was hemodynamically stable. However the patient did require 2 L of oxygen per nasal cannula. Labs shows a sodium 136 but otherwise benign. Chest CTA shows no sign of pulmonary edema or pulmonary embolism. Also no sign of pneumonia. Viral respiratory panel came back positive for influenza B. The patient was given Tamiflu, azithromycin, ceftriaxone, Solu-Medrol and DuoNebs. ON LICENSE OF [facility] Medical History (Updated 12/11/24 @ 22:29 by Jose A Julien DO) Heroin abuse Migraine without aura and without status migrainosus, not intractable (01/10/16) Sgrda-Myhmdmxev-Ftalq (WPW) syndrome, 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) History of malignant neoplasm of cervix (07/07/16) History of squamous cell carcinoma (07/07/16) Depression (07/07/16) Acquired hypothyroidism (07/24/16) Chronic pain syndrome (02/11/17) Anxiety Surgical History Status post knee surgery History of cardiac radiofrequency ablation (RFA) Status post hysterectomy Social History household members: significant other Smoking Status: Current every day smoker alcohol intake: former substance use type: heroin and IV drugs Meds Home Medications and Allergies Home Medications Medication Instructions Recorded Confirmed Type methadone 10 mg/mL oral 110 mg PO DAILY 12/12/24 12/12/24 History concentrate (Methadone Intensol) Allergies Allergy/AdvReac Type Severity Reaction Status Date / Time adhesive Allergy Unknown Verified 06/25/23 16:39 latex Allergy Unknown Verified 06/25/23 16:39 Sulfa (Sulfonamide Allergy Unknown Verified 06/25/23 16:39 Antibiotics) fentanyl AdvReac Severe Cardiac Verified 06/25/23 16:39 METAL Allergy Unknown Uncoded 06/25/23 16:39 Review of Systems Review of Systems ROS: Yes All systems reviewed with the patient and are negative except as otherwise documented Exam Vital Signs (past 8 hours): - 12/11/24 22:00 12/11/24 22:07 12/11/24 22:07 Temperature Pulse Rate 75 72 Respiratory Rate 22 17 Blood Pressure 97/58 L Pulse Oximetry 93 94 Oxygen Delivery Method Oxygen Flow Rate 12/11/24 22:30 12/11/24 22:30 12/11/24 22:30 Temperature Pulse Rate Respiratory Rate Blood Pressure 110/75 110/75 110/75 Pulse Oximetry Oxygen Delivery Method Oxygen Flow Rate 12/11/24 22:30 12/11/24 22:30 12/11/24 22:30 Temperature Pulse Rate 82 Respiratory Rate 22 Blood Pressure 110/75 110/75 Pulse Oximetry 94 Oxygen Delivery Method Oxygen Flow Rate 12/11/24 23:00 12/11/24 23:00 12/11/24 23:29 Temperature 97.9 F Pulse Rate 64 Respiratory Rate 21 16 Blood Pressure 107/64 Pulse Oximetry 92 92 Oxygen Delivery Method Nasal Cannula Nasal Cannula Oxygen Flow Rate 3 4 12/12/24 00:07 12/12/24 00:25 12/12/24 01:00 Temperature 96.3 F L Pulse Rate 72 Respiratory Rate 20 Blood Pressure 116/74 Pulse Oximetry 97 93 Oxygen Delivery Method Nasal Cannula Oxygen Flow Rate 4 4 Fraction of Inspired Oxygen 21 SaO2/FiO2 Ratio 433 Oxygen Delivery Method Nasal Cannula Oxygen Flow Rate 4 Narrative Exam Narrative: Physical Exam: GENERAL: The patient is not in any acute distressed. Awake and alert. HEENT: Nonicteric sclerae, PERRLA, EOMI. Oropharynx clear. Moist mucous membranes. Conjunctivae appear well perfused. HEART: Regular rate and rhythm without murmurs. No lower extremities edema. LUNGS: Clear to auscultation bilaterally. No wheezing, crackles or rhonchi ABDOMEN: Soft, positive bowel sounds, nontender. SKIN: No rash, no excessive bruising, petechiae, or purpura. NEUROLOGIC: AxO x 3. Cranial nerves II-XII intact without motor/sensory deficit. Objective Labs 12/12/24 04:50 12/12/24 04:50 Labs: Laboratory Results - last 24 hr 12/11/24 12/11/24 12/12/24 18:20 20:57 04:50 WBC 6.6 4.9 RBC 5.06 4.95 Hgb 14.4 14.0 Hct 43.2 41.8 MCV 85.3 84.5 MCH 28.4 28.3 MCHC 33.3 33.5 RDW 14.7 14.5 Plt Count 234 239 Neut % (Auto) 68.4 86.6 H Lymph % (Auto) 20.9 L 11.8 L [place] % (Auto) 10.1 1.3 L Eos % (Auto) 0.1 L 0.0 L Baso % (Auto) 0.5 0.3 Neut # (Auto) 4600 4200 Lymph # (Auto) 1400 600 L [place] # (Auto) 700 100 Eos # (Auto) 0 0 Baso # (Auto) 0 0 PT 12.2 INR 1.1 Sodium 136 L 137 Potassium 4.3 4.5 Chloride 99 98 Carbon Dioxide 29 31 BUN 14 13 Creatinine 0.70 0.66 Estimated GFR > 60 > 60 BUN/Creatinine Ratio 20.0 19.7 Glucose 104 H 162 H Lactate 1.5 Calcium 9.0 9.1 Total Bilirubin 1.2 AST 49 H ALT 94 H Alkaline Phosphatase 94 Troponin I < 0.012 NT-Pro-B Natriuret Pep 130 H Total Protein 8.7 H Albumin 4.2 Globulin 4.5 H Albumin/Globulin Ratio 0.9 L SARS-CoV-2 (PCR) Negative Influenza A (RT-PCR) Flu a negative Influenza B (RT-PCR) Flu b positive H RSV (PCR) Negative Assessment & Plan Assessment & Plan narrative: Possible COPD/asthma exacerbation. Admit the patient to medical inpatient. Continue Solu-Medrol and DuoNebs. Treat underlying function. Positive influenza B with possible underlying bacterial pneumonia. Continue Tamiflu and azithromycin/ceftriaxone. Monitor for sepsis. Acute respiratory failure with hypoxemia. Currently patient on 2 L oxygen. Likely from above. Treat as above and wean down oxygen as able. Chronic drug abuser. Resume home methadone. DVT prophylaxis heparin subcu. CODE STATUS full code. Disposition likely home in 2 days. Time-Based Coding :: [TOTAL MINUTES] spent with patient and on the chart (including review of chart, obtaining history, exam, reviewing outside data, placing orders, documenting exam and treatment plan, and counseling patient) on [DATE].
[2024-12-12] MEDS: ACETAMINOPHEN 325 MG TABLET 650 MG PO ×2 (06:20→21:32)
[2024-12-12] MEDS: PANTOPRAZOLE DR 40 MG TABLET PO (06:20)
--- NOTE | 2024-12-12 07:56 | PM.PN.1 ---
Subjective Subjective Interval history: Summary: 49-year-old female with past medical history of COPD and asthma non-O2 dependent, active tobacco abuser, drug use on methadone, Akcxk-Pdcverokx-Umqhs syndrome, hypothyroidism and anxiety presents with shortness of breath. Per the patient's report, the patient started to have upper respiratory symptoms such as coughing, wheezing, shortness of breath over the last month. The patient however did not seek help but today her symptoms worsen especially her shortness of breath and wheezing. Otherwise the patient denies any nausea, vomiting, fever, chills, chest pain or syncope. In the emergency room, the patient was hemodynamically stable. However the patient did require 2 L of oxygen per nasal cannula. Labs shows a sodium 136 but otherwise benign. Chest CTA shows no sign of pulmonary edema or pulmonary embolism. Also no sign of pneumonia. Viral respiratory panel came back positive for influenza B. The patient was given Tamiflu, azithromycin, ceftriaxone, Solu-Medrol and DuoNebs. S: Still tight, but somewhat better. She was on a nebulizer this morning. She has an intermittent dry cough. She takes methadone 110 mg q.a.m.. Exam Vital Signs (past 8 hours): - 12/12/24 00:07 12/12/24 00:25 12/12/24 01:00 Temperature 96.3 F L Pulse Rate 72 Respiratory Rate 20 Blood Pressure 116/74 Pulse Oximetry 97 93 Oxygen Delivery Method Nasal Cannula Oxygen Flow Rate 4 4 Fraction of Inspired Oxygen 21 SaO2/FiO2 Ratio 433 Oxygen Delivery Method Nasal Cannula Oxygen Flow Rate 4 Narrative Exam Narrative: NAD, alert and oriented. Fluent speech. Frail. On oxygen and a nebulizer. Lungs Are tight and very wheezy with expiration, normal rate and effort. Heart is regular, no murmur gallop or rub. Abdomen is soft, non distended. Extremities are free of edema. Objective ECG Impression: Normal sinus rhythm Imaging Multiple studies:: Radiologist's impression: Chest CTA: Nondiagnostic study for pulmonary embolus due to multiple factors. Diffuse moderate bronchial wall thickening with minor airspace opacity and consolidative changes most consistent with bronchitis and early or mild bronchopneumonia. Reactive mediastinal adenopathy. CXR: Suggestion of mild reactive airway disease such as bronchitis or viral illness. No definite focal infiltrate. No pleural effusion or pneumothorax. Labs 12/12/24 04:50 12/12/24 04:50 Labs: Laboratory Results - last 24 hr 12/11/24 12/11/24 12/12/24 18:20 20:57 04:50 WBC 6.6 4.9 RBC 5.06 4.95 Hgb 14.4 14.0 Hct 43.2 41.8 MCV 85.3 84.5 MCH 28.4 28.3 MCHC 33.3 33.5 RDW 14.7 14.5 Plt Count 234 239 Neut % (Auto) 68.4 86.6 H Lymph % (Auto) 20.9 L 11.8 L [place] % (Auto) 10.1 1.3 L Eos % (Auto) 0.1 L 0.0 L Baso % (Auto) 0.5 0.3 Neut # (Auto) 4600 4200 Lymph # (Auto) 1400 600 L [place] # (Auto) 700 100 Eos # (Auto) 0 0 Baso # (Auto) 0 0 PT 12.2 INR 1.1 Sodium 136 L 137 Potassium 4.3 4.5 Chloride 99 98 Carbon Dioxide 29 31 BUN 14 13 Creatinine 0.70 0.66 Estimated GFR > 60 > 60 BUN/Creatinine Ratio 20.0 19.7 Glucose 104 H 162 H Lactate 1.5 Calcium 9.0 9.1 Total Bilirubin 1.2 AST 49 H ALT 94 H Alkaline Phosphatase 94 Troponin I < 0.012 NT-Pro-B Natriuret Pep 130 H Total Protein 8.7 H Albumin 4.2 Globulin 4.5 H Albumin/Globulin Ratio 0.9 L SARS-CoV-2 (PCR) Negative Influenza A (RT-PCR) Flu a negative Influenza B (RT-PCR) Flu b positive H RSV (PCR) Negative [facility] Medical History Heroin abuse Migraine without aura and without status migrainosus, not intractable (01/10/16) Kpyuy-Pxqmgqwpx-Ccjqj (WPW) syndrome, 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 COPD exacerbation. Admit the patient to medical inpatient. Continue Solu-Medrol and DuoNebs. Treat underlying function. 2. Positive influenza B with possible underlying bacterial pneumonia. Continue Tamiflu and azithromycin/ceftriaxone. Monitor for sepsis. 3. Acute respiratory failure with hypoxemia. Currently patient on 2 L oxygen. Likely from above. Treat as above and wean down oxygen as able. 4. Continuous opiate dependence. Resume home methadone (110 mg QD). PLAN: - steroids, and bronchodilators. - Antibiotics, and Tamiflu. - Methadone 110 mg p.o. q.d.. DEANDRE: 12/13. DVT prophylaxis heparin SQ. CODE STATUS full code. Time-Based Coding :: [TOTAL MINUTES] spent with patient and on the chart (including review of chart, obtaining history, exam, reviewing outside data, placing orders, documenting exam and treatment plan, and counseling patient) on [DATE].
[2024-12-12] MEDS: ALBUTEROL/IPRATROPIUM 3 ML AMPUL INH ×3 (08:42→19:57)
[2024-12-12] MEDS: cefTRIAXone 1,000 MG in SODIUM CHLORIDE 0.9% 100 ML 200 MG IV (09:06)
[2024-12-12] MEDS: OSELTAMIVIR 75 MG CAPSULE PO ×2 (09:06→21:32)
[2024-12-12] MEDS: METHADONE INTENSOL 10 MG/ML ORAL.CONC 110 MG PO (09:06)
[2024-12-12] MEDS: ENOXAPARIN 40 MG/0.4 ML SYRINGE SUBCUT ×2 (09:06→21:32)
[2024-12-12] MEDS: AZITHROMYCIN 500 MG in DEXTROSE 5% IN WATER 250 ML 250 MG IV (10:05)
--- NOTE | 2024-12-12 13:49 | CM.DANOTE ---
Initial DCP Assessment Visit Note Reviewed EMR and team rounds for pt's medical status and updates. Met with pt and her Significant Other (SO) at bedside to introduce self and role, pt was found to be alert/oriented, in no respiratory distress, able to discuss her plan for d/c back to her mother's house once medically cleared, likely by tomorrow (Wed 12/13). Pt's mother will transport her back home. Pt denies any CM d/c assistance/needs at this time. Payor: Neto Bubok Dimitry PCP: u/k Pt is a 49 year-old F with a hx of COPD, and heroin use disorder (on Methadone) presented to the ED with c/o worsening shortness of breath, cough, and wheezing for the last month. She was found to be hypoxic in the ED, was started on 2L02, Albuteral, DuoNebs, and IV ABO's for confirmed pneumonia, bronchitis, and Flu-B. DCP will continue to monitor and assist with any further evolving d/c assistance/needs. Discharge Planning/Care Management CM Discharge Assessment Start: 12/12/24 13:46 Freq: Status: Active Protocol: Document 12/12/24 13:46 DPL (Rec: 12/12/24 13:49 DPL [id number]) Discharge Planning Assessment Assigned Environmental Science Program Director NIKITA Yung Advance Directives? No History Provided By Patient,Medical Record Has Patient been admitted in last 30 No days? Prior Living Arrangements Other Comment Pt and her boyfriend are staying with her mother. Household Members significant other,family Type of transporation used prior to Relies on Others admit Independent with ADL's Yes Is patient alert and oriented? Yes Caregiver for Another No Comment No identified home d/c needs at this time. Barriers to Discharge No Discharge Plan Home Transportation Arrangement Mother Whiteboard Updated in Patient Room with Yes name and ext. # of Environmental Science Program Director Review Status In Process Please Provide Date Initial DC 12/12/24 Assessment Was Performed
[2024-12-13] MEDS: methylPREDNISolone 125 MG/2 ML VIAL 40 MG IV ×3 (04:59→21:31)
[2024-12-13] MEDS: PANTOPRAZOLE DR 40 MG TABLET PO (06:59)
[2024-12-13 08:00] VITALS: BP 106/77; PULSE 68; RESP 18; TEMP 36.2; O2SAT 91
[2024-12-13 08:42] LABS: Add Manual Diff / Slide Review NO; Basophils Absolute Auto 100 /uL (0-100); Basophils Percent Auto 0.6 % (0-2); Eosinophils Absolute Auto 0 /uL (0-450); Hematocrit 43.8 % (36-46); Hemoglobin 14.5 g/dL (12.0-16.0); Lymphocytes Absolute Auto 1000 /uL (1100-4500); Mean Corpuscular HGB Conc 33.1 % (30-36); Mean Corpuscular Hemoglobin 27.8 PG (26-34); Mean Corpuscular Volume 84.1 fL (80-100); Monocytes Absolute Auto 500 /uL (0-900); Monocytes Percent Auto 3.2 % (3-14); Neutrophils Absolute Auto 12800 /uL (1500-7000); Neutrophils Percent Auto 89.2 % (50-75); Platelet Count 305 X10^3/uL (150-400); Red Blood Cell Count 5.21 X10^6/uL (4.0-5.2); Red Cell Distribution Width 14.6 % (11.6-14.8); White Blood Cell Count 14.3 X10^3/uL (4.5-11.0)
[2024-12-13 08:52] VITALS: PULSE 68; RESP 18; O2SAT 94
[2024-12-13] MEDS: ALBUTEROL/IPRATROPIUM 3 ML AMPUL INH ×3 (08:52→19:36)
[2024-12-13 08:56] LABS: Alanine Aminotransferase 69 IU/L (<35); Albumin 4.2 g/dL (3.5-5.0); Albumin Globulin Ratio 0.9 (1.0-2.8); Alkaline Phosphatase 85 U/L (38-126); Aspartate Aminotransferase 34 IU/L (14-36); BUN Creatinine Ratio 34.8 (6-22); Bilirubin Total 0.8 mg/dL (0.2-1.3); Blood Urea Nitrogen 23 mg/dL (7-17); Calcium 9.3 mg/dL (8.4-10.2); Carbon Dioxide 27 mmol/L (22-32); Chloride 102 mmol/L (98-107); Estimated Glomerular Filt Rate > 60 mL/min (>60); Globulin 4.6 g/dL (1.7-4.1); Glucose 134 mg/dL (70-100); HEMOLYSIS 18 (0-50); Potassium 4.9 mmol/L (3.4-5.1); Sodium 138 mmol/L (137-145); Total Protein 8.8 g/dL (6.3-8.2)
[2024-12-13] MEDS: cefTRIAXone 1,000 MG in SODIUM CHLORIDE 0.9% 100 ML 200 MG IV (09:31)
[2024-12-13] MEDS: OSELTAMIVIR 75 MG CAPSULE PO ×2 (09:31→21:31)
[2024-12-13] MEDS: ENOXAPARIN 40 MG/0.4 ML SYRINGE SUBCUT ×2 (09:31→21:31)
[2024-12-13] MEDS: METHADONE INTENSOL 10 MG/ML ORAL.CONC 110 MG PO (09:32)
[2024-12-13] MEDS: AZITHROMYCIN 500 MG in DEXTROSE 5% IN WATER 250 ML 250 MG IV (10:16)
--- NOTE | 2024-12-13 10:22 | CM.DPC ---
DCP Cont. Reviewed EMR and team rounds for status updates. Per Hospitalist, pt is still requiring 2LO2. Anticipate d/c for , 12/14. No anticipated CM d/c needs.
--- NOTE | 2024-12-13 13:14 | DI.RAD.S_ITS ---
PROCEDURE: XR CHEST 1V INDICATIONS: continued hypoxia, pleuritic chest pain, assess for effusion TECHNIQUE: One view of the chest was acquired. COMPARISON: [facility], CR, XR CHEST 1V, 12/11/2024, 17:56. FINDINGS: Mildly increased dilu-wl-cuujbupa bilateral perihilar and lower lobe peribronchial thickening with patchy opacities, more than expected for expiratory result and bronchitis, bronchopneumonia viral infection, or other process should be considered. Follow-up suggested. Mild bibasilar subsegmental atelectasis mildly increased. Cardiopericardial silhouette and pulmonary vasculature within normal limits. No pneumothorax, no pleural effusion. IMPRESSION: Mildly increased peribronchial thickening and patchy opacities as discussed above suspicious for bronchitis, bronchopneumonia or other process. Follow-up suggested. If symptoms persist or worsen, CT chest could be performed. Dictated by: Jarrod Christie M.D. on 12/13/2024 at 13:59 Approved by: Jarrod Christie M.D. on 12/13/2024 at 14:11
[2024-12-13 13:34] VITALS: PULSE 69; RESP 16; O2SAT 94
--- NOTE | 2024-12-13 17:24 | PM.PN.1 ---
Subjective Subjective Interval history: Summary of presentation: 49-year-old female with past medical history of COPD and asthma non-O2 dependent, active tobacco abuser, drug use on methadone, Muudw-Lczqfzuui-Jkivo syndrome, hypothyroidism and anxiety presents with shortness of breath. Per the patient's report, the patient started to have upper respiratory symptoms such as coughing, wheezing, shortness of breath over the last month. The patient however did not seek help but today her symptoms worsen especially her shortness of breath and wheezing. Otherwise the patient denies any nausea, vomiting, fever, chills, chest pain or syncope. In the emergency room, the patient was hemodynamically stable. However the patient did require 2 L of oxygen per nasal cannula. Labs shows a sodium 136 but otherwise benign. Chest CTA shows no sign of pulmonary edema or pulmonary embolism. Also no sign of pneumonia. Viral respiratory panel came back positive for influenza B. The patient was given Tamiflu, azithromycin, ceftriaxone, Solu-Medrol and DuoNebs. Updates today: No real change in symptoms, slight worsening of bilateral pleuritic chest pain today. Continue hypoxia requiring 2-3 L of O2 to maintain O2 sats >90%. Exam Vital Signs (past 8 hours): - 12/13/24 13:34 Pulse Rate 69 Respiratory Rate 16 Pulse Oximetry 94 Oxygen Delivery Method Nasal Cannula Oxygen Flow Rate 2 Fraction of Inspired Oxygen 28 Fraction of Inspired Oxygen 28 SaO2/FiO2 Ratio 335 Oxygen Delivery Method Nasal Cannula Oxygen Flow Rate 2 Narrative Exam Narrative: NAD, alert and oriented. Fluent speech. Frail. On oxygen and a nebulizer. Lungs Are tight and very wheezy with expiration, normal rate and effort. Heart is regular, no murmur gallop or rub. Abdomen is soft, non distended. Extremities are free of edema. Objective Labs 12/13/24 08:25 12/13/24 08:25 Labs: Laboratory Results - last 24 hr 12/13/24 08:25 WBC 14.3 H D RBC 5.21 H Hgb 14.5 Hct 43.8 MCV 84.1 MCH 27.8 MCHC 33.1 RDW 14.6 Plt Count 305 Neut % (Auto) 89.2 H Lymph % (Auto) 7.0 L [place] % (Auto) 3.2 Eos % (Auto) 0.0 L Baso % (Auto) 0.6 Neut # (Auto) 80726 H Lymph # (Auto) 1000 L [place] # (Auto) 500 Eos # (Auto) 0 Baso # (Auto) 100 Sodium 138 Potassium 4.9 Chloride 102 Carbon Dioxide 27 BUN 23 H Creatinine 0.66 Estimated GFR > 60 BUN/Creatinine Ratio 34.8 H Glucose 134 H Calcium 9.3 Total Bilirubin 0.8 AST 34 ALT 69 H Alkaline Phosphatase 85 Total Protein 8.8 H Albumin 4.2 Globulin 4.6 H Albumin/Globulin Ratio 0.9 L [facility] Medical History Heroin abuse Migraine without aura and without status migrainosus, not intractable (01/10/16) Cwgwi-Xxtkojlzn-Raukd (WPW) syndrome, 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 COPD exacerbation. - reduce q6 steroids to BID, change to prednisone after 1-2 days depending on symptoms. - prn nebulizer therapies 2. Positive influenza B with possible underlying bacterial pneumonia. - Continue Tamiflu and azithromycin/ceftriaxone. - slightly increased bronchial findings on CXR, though not significantly, no pleural effusion 3. Acute respiratory failure with hypoxemia. - goal O2 89-96% on supplemental therapies. No usually on home O2 - CTA done on presentation with no PE, but limited due to poor timing - if still hypoxic or worsening, repeat CTA. 4. Continuous opiate dependence. - Resume home methadone (110 mg QD). DVT prophylaxis heparin SQ. CODE STATUS full code. Dispo: Likely discharge in 1-3 more days, pending resolution of acute respiratory failure with hypoxia. Time-Based Coding :: [TOTAL MINUTES] spent with patient and on the chart (including review of chart, obtaining history, exam, reviewing outside data, placing orders, documenting exam and treatment plan, and counseling patient) on [DATE].
[2024-12-13 19:00] VITALS: O2SAT 92
[2024-12-13 19:40] VITALS: O2SAT 3
[2024-12-13 20:00] VITALS: BP 117/71; PULSE 66; RESP 22; TEMP 36.8; O2SAT 92
[2024-12-14 06:38] LABS: Add Manual Diff / Slide Review NO; Basophils Absolute Auto 0 /uL (0-100); Basophils Percent Auto 0.1 % (0-2); Eosinophils Absolute Auto 0 /uL (0-450); Hematocrit 40.2 % (36-46); Hemoglobin 13.5 g/dL (12.0-16.0); Lymphocytes Absolute Auto 1100 /uL (1100-4500); Lymphocytes Percent Auto 7.8 % (25-40); Mean Corpuscular HGB Conc 33.6 % (30-36); Mean Corpuscular Hemoglobin 28.2 PG (26-34); Monocytes Absolute Auto 600 /uL (0-900); Monocytes Percent Auto 4.7 % (3-14); Neutrophils Absolute Auto 12000 /uL (1500-7000); Neutrophils Percent Auto 87.4 % (50-75); Platelet Count 307 X10^3/uL (150-400); Red Blood Cell Count 4.78 X10^6/uL (4.0-5.2); Red Cell Distribution Width 14.5 % (11.6-14.8); White Blood Cell Count 13.8 X10^3/uL (4.5-11.0)
[2024-12-14 06:47] LABS: Alanine Aminotransferase 55 IU/L (<35); Albumin 3.9 g/dL (3.5-5.0); Alkaline Phosphatase 77 U/L (38-126); Aspartate Aminotransferase 28 IU/L (14-36); BUN Creatinine Ratio 35.6 (6-22); Bilirubin Total 0.7 mg/dL (0.2-1.3); Blood Urea Nitrogen 26 mg/dL (7-17); Calcium 9.1 mg/dL (8.4-10.2); Carbon Dioxide 29 mmol/L (22-32); Chloride 102 mmol/L (98-107); Estimated Glomerular Filt Rate > 60 mL/min (>60); Glucose 120 mg/dL (70-100); HEMOLYSIS < 15 (0-50); Potassium 4.8 mmol/L (3.4-5.1); Sodium 137 mmol/L (137-145); Total Protein 7.9 g/dL (6.3-8.2)
[2024-12-14] MEDS: PANTOPRAZOLE DR 40 MG TABLET PO (06:56)
[2024-12-14 07:56] VITALS: PULSE 82; RESP 20; O2SAT 96
[2024-12-14] MEDS: ALBUTEROL/IPRATROPIUM 3 ML AMPUL INH ×3 (07:56→19:35)
[2024-12-14 08:00] VITALS: BP 114/71; PULSE 77; RESP 15; TEMP 36.4; O2SAT 92
[2024-12-14] MEDS: polyethylene glycoL 3350 17 GM POWD.PACK PO (08:35)
[2024-12-14] MEDS: METHADONE INTENSOL 10 MG/ML ORAL.CONC 110 MG PO (09:44)
[2024-12-14] MEDS: methylPREDNISolone 125 MG/2 ML VIAL 40 MG IV ×2 (09:48→20:18)
[2024-12-14] MEDS: ENOXAPARIN 40 MG/0.4 ML SYRINGE SUBCUT ×2 (09:48→20:19)
[2024-12-14] MEDS: cefTRIAXone 1,000 MG in SODIUM CHLORIDE 0.9% 100 ML 200 MG IV (09:49)
[2024-12-14] MEDS: OSELTAMIVIR 75 MG CAPSULE PO ×2 (09:49→20:19)
[2024-12-14] MEDS: AZITHROMYCIN 500 MG in DEXTROSE 5% IN WATER 250 ML 250 MG IV (11:02)
[2024-12-14 13:31] VITALS: PULSE 82; RESP 20; O2SAT 93
--- NOTE | 2024-12-14 17:52 | P.PN_ITS ---
Subjective Subjective Interval history: Summary of presentation: 49-year-old female with past medical history of COPD and asthma non-O2 dependent, active tobacco abuser, drug use on methadone, Wpart-Xsmkeolya-Yqbbt syndrome, hypothyroidism and anxiety presents with shortness of breath. Per the patient's report, the patient started to have upper respiratory symptoms such as coughing, wheezing, shortness of breath over the last month. The patient however did not seek help but today her symptoms worsen especially her shortness of breath and wheezing. Otherwise the patient denies any nausea, vomiting, fever, chills, chest pain or syncope. In the emergency room, the patient was hemodynamically stable. However the patient did require 2 L of oxygen per nasal cannula. Labs shows a sodium 136 but otherwise benign. Chest CTA shows no sign of pulmonary edema or pulmonary embolism. Also no sign of pneumonia. Viral respiratory panel came back positive for influenza B. The patient was given Tamiflu, azithromycin, ceftriaxone, Solu-Medrol and DuoNebs. Updates today: No real change in symptoms, slight worsening of bilateral pleuritic chest pain today. Continue hypoxia requiring 2-3 L of O2 to maintain O2 sats >90%. Exam Vital Signs (past 8 hours): - 12/14/24 10:49 12/14/24 13:31 Pulse Rate 82 Respiratory Rate 20 Pulse Oximetry 93 Oxygen Delivery Method Nasal Cannula Oxygen Flow Rate 2 Fraction of Inspired Oxygen 28 SaO2/FiO2 Ratio 335 Oxygen Delivery Method Nasal Cannula Oxygen Flow Rate 2 Narrative Exam Narrative: NAD, alert and oriented. Fluent speech. Frail. On oxygen and a nebulizer. Lungs Are tight and very wheezy with expiration, normal rate and effort. Heart is regular, no murmur gallop or rub. Abdomen is soft, non distended. Extremities are free of edema. Objective Labs 12/14/24 06:10 12/14/24 06:10 Labs: Laboratory Results - last 24 hr 12/14/24 06:10 WBC 13.8 H RBC 4.78 Hgb 13.5 Hct 40.2 MCV 84.0 MCH 28.2 MCHC 33.6 RDW 14.5 Plt Count 307 Neut % (Auto) 87.4 H Lymph % (Auto) 7.8 L [place] % (Auto) 4.7 Eos % (Auto) 0.0 L Baso % (Auto) 0.1 Neut # (Auto) 87520 H Lymph # (Auto) 1100 [place] # (Auto) 600 Eos # (Auto) 0 Baso # (Auto) 0 Sodium 137 Potassium 4.8 Chloride 102 Carbon Dioxide 29 BUN 26 H Creatinine 0.73 Estimated GFR > 60 BUN/Creatinine Ratio 35.6 H Glucose 120 H Calcium 9.1 Total Bilirubin 0.7 AST 28 ALT 55 H Alkaline Phosphatase 77 Total Protein 7.9 Albumin 3.9 Globulin 4.0 Albumin/Globulin Ratio 1.0 PFS Medical History Heroin abuse Migraine without aura and without status migrainosus, not intractable (01/10/16) Yjxsd-Lzbldbndo-Luifm (WPW) syndrome, 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 COPD exacerbation. - reduce q6 steroids to BID, change to prednisone after 1-2 more days depending on symptoms. - prn nebulizer therapies 2. Positive influenza B with possible underlying bacterial pneumonia. - Continue Tamiflu and azithromycin/ceftriaxone. - slightly increased bronchial findings on CXR, though not significantly, no pleural effusion - leukocytosis possibly reactive to steroids, but improving today. 3. Acute respiratory failure with hypoxemia. - goal O2 89-96% on supplemental therapies. No usually on home O2 - CTA done on presentation with no PE, but limited due to poor timing - if still hypoxic or worsening, consider repeat CTA. 4. Continuous opiate dependence. - Resumed home methadone (110 mg QD). Continue daily. DVT prophylaxis heparin SQ. CODE STATUS full code. Dispo: Likely discharge in 1-3 more days, pending resolution of acute respiratory failure with hypoxia. Time-Based Coding :: [TOTAL MINUTES] spent with patient and on the chart (including review of chart, obtaining history, exam, reviewing outside data, placing orders, documenting exam and treatment plan, and counseling patient) on [DATE].
[2024-12-14 19:39] VITALS: O2SAT 2
[2024-12-14 20:00] VITALS: BP 114/76; PULSE 80; RESP 19; TEMP 37; O2SAT 93
[2024-12-15] MEDS: PANTOPRAZOLE DR 40 MG TABLET PO (06:14)
[2024-12-15 06:25] LABS: Add Manual Diff / Slide Review NO; Basophils Absolute Auto 0 /uL (0-100); Basophils Percent Auto 0.2 % (0-2); Eosinophils Absolute Auto 0 /uL (0-450); Hemoglobin 13.2 g/dL (12.0-16.0); Lymphocytes Absolute Auto 1400 /uL (1100-4500); Lymphocytes Percent Auto 12.5 % (25-40); Mean Corpuscular HGB Conc 33.1 % (30-36); Mean Corpuscular Hemoglobin 27.9 PG (26-34); Mean Corpuscular Volume 84.3 fL (80-100); Monocytes Absolute Auto 600 /uL (0-900); Monocytes Percent Auto 5.6 % (3-14); Neutrophils Absolute Auto 9000 /uL (1500-7000); Neutrophils Percent Auto 81.7 % (50-75); Platelet Count 315 X10^3/uL (150-400); Red Blood Cell Count 4.74 X10^6/uL (4.0-5.2); Red Cell Distribution Width 14.5 % (11.6-14.8); White Blood Cell Count 11.1 X10^3/uL (4.5-11.0)
[2024-12-15 06:36] LABS: Alanine Aminotransferase 70 IU/L (<35); Albumin 3.9 g/dL (3.5-5.0); Alkaline Phosphatase 72 U/L (38-126); Aspartate Aminotransferase 38 IU/L (14-36); BUN Creatinine Ratio 35.2 (6-22); Bilirubin Total 0.9 mg/dL (0.2-1.3); Blood Urea Nitrogen 25 mg/dL (7-17); Carbon Dioxide 30 mmol/L (22-32); Chloride 100 mmol/L (98-107); Estimated Glomerular Filt Rate > 60 mL/min (>60); Globulin 3.9 g/dL (1.7-4.1); Glucose 112 mg/dL (70-100); HEMOLYSIS < 15 (0-50); Potassium 4.7 mmol/L (3.4-5.1); Sodium 135 mmol/L (137-145); Total Protein 7.8 g/dL (6.3-8.2)
[2024-12-15 07:45] VITALS: PULSE 70; RESP 20; O2SAT 95
[2024-12-15] MEDS: ALBUTEROL/IPRATROPIUM 3 ML AMPUL INH ×2 (07:45→14:32)
[2024-12-15 09:00] VITALS: BP 117/72
[2024-12-15] MEDS: methylPREDNISolone 125 MG/2 ML VIAL 40 MG IV (09:29)
[2024-12-15] MEDS: cefTRIAXone 1,000 MG in SODIUM CHLORIDE 0.9% 100 ML 200 MG IV (09:29)
[2024-12-15] MEDS: METHADONE INTENSOL 10 MG/ML ORAL.CONC 110 MG PO (09:29)
[2024-12-15] MEDS: ENOXAPARIN 40 MG/0.4 ML SYRINGE SUBCUT (09:30)
[2024-12-15] MEDS: OSELTAMIVIR 75 MG CAPSULE PO (09:30)
[2024-12-15] MEDS: AZITHROMYCIN 500 MG in DEXTROSE 5% IN WATER 250 ML 250 MG IV (10:38)
[2024-12-15 14:32] VITALS: PULSE 62; RESP 20; O2SAT 96
[2024-12-15 14:50] VITALS: RESP 20; O2SAT 93
--- NOTE | 2024-12-15 15:32 | CM.DPC ---
DCP Cont. Reviewed EMR and team rounds for status updates. Per Hospitalist, pt is still on 2LO2, will not be ready to d/c until weaned off. Likely 1-2 more days. Monitoring for final needs.
--- NOTE | 2024-12-15 15:58 | PM.DS.1 ---
History of Present Illness History of Present Illness Date Patient Seen: 12/15/24 Time Patient Seen: 15:58 Chief complaint: thinks has pneumonia Narrative: 49-year-old female with past medical history of COPD and asthma non-O2 dependent, active tobacco abuser, drug use on methadone, Khmdk-Cbdbedivx-Afxtl syndrome, hypothyroidism and anxiety presents with shortness of breath. Per the patient's report, the patient started to have upper respiratory symptoms such as coughing, wheezing, shortness of breath over the last month. The patient however did not seek help but today her symptoms worsen especially her shortness of breath and wheezing. Otherwise the patient denies any nausea, vomiting, fever, chills, chest pain or syncope. In the emergency room, the patient was hemodynamically stable. However the patient did require 2 L of oxygen per nasal cannula. Labs shows a sodium 136 but otherwise benign. Chest CTA shows no sign of pulmonary edema or pulmonary embolism. Also no sign of pneumonia. Viral respiratory panel came back positive for influenza B. The patient was given Tamiflu, azithromycin, ceftriaxone, Solu-Medrol and DuoNebs. Discharge Providers Provider Date of admission: 12/11/24 23:04 Discharge Date: 12/15/24 Primary care physician: Doctor Barry, Discharge provider: Jose A Johnson DO Summary Hospital Course Discharge Diagnosis: 1. COPD exacerbation. 2. Positive influenza B with possible underlying bacterial pneumonia. 3. Acute respiratory failure with hypoxemia. 4. Continuous opiate dependence. Hospital Course: This is a 49 year old female with PMH of opiate dependense on methadone who was admitted with acute respiratory failure with hypoxia due to influenza B, bacterial pneumonia, and COPD exacerbation. She improved with steroids and antibiotics, but somewhat slowly. Her oxygen was gradually weaned down and she was symptomatically improving. On the day of discharge, she was finally able to remain off supplemental oxygen even with ambulation. She was continued on augmentin on discharge for bacterial pneumonia, prednisone, and tamiflu. She should follow up with primary care provider as previously scheduled. Time Spent with Patient Time spent: Greater than 30 minutes Exam Vital Signs (past 8 hours): - 12/15/24 09:00 12/15/24 14:32 12/15/24 14:50 Pulse Rate 62 Respiratory Rate 20 20 Blood Pressure 117/72 Pulse Oximetry 96 93 Oxygen Delivery Method Room Air Oxygen Flow Rate 0 Fraction of Inspired Oxygen 28 SaO2/FiO2 Ratio 335 Oxygen Delivery Method Room Air Oxygen Flow Rate 0 Narrative Exam Narrative: NAD, alert and oriented. Fluent speech. Frail. On oxygen and a nebulizer. Lungs Are tight and very wheezy with expiration, normal rate and effort. Heart is regular, no murmur gallop or rub. Abdomen is soft, non distended. Extremities are free of edema. Objective Labs 12/15/24 06:15 12/15/24 06:15 Labs: Laboratory Results - last 24 hr 12/15/24 06:15 WBC 11.1 H RBC 4.74 Hgb 13.2 Hct 40.0 MCV 84.3 MCH 27.9 MCHC 33.1 RDW 14.5 Plt Count 315 Neut % (Auto) 81.7 H Lymph % (Auto) 12.5 L [place] % (Auto) 5.6 Eos % (Auto) 0.0 L Baso % (Auto) 0.2 Neut # (Auto) 9000 H Lymph # (Auto) 1400 [place] # (Auto) 600 Eos # (Auto) 0 Baso # (Auto) 0 Sodium 135 L Potassium 4.7 Chloride 100 Carbon Dioxide 30 BUN 25 H Creatinine 0.71 Estimated GFR > 60 BUN/Creatinine Ratio 35.2 H Glucose 112 H Calcium 9.0 Total Bilirubin 0.9 AST 38 H ALT 70 H Alkaline Phosphatase 72 Total Protein 7.8 Albumin 3.9 Globulin 3.9 Albumin/Globulin Ratio 1.0 [facility] Medical History Heroin abuse Migraine without aura and without status migrainosus, not intractable (01/10/16) Jgaoo-Ofvtlxapw-Uamrr (WPW) syndrome, 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) History of malignant neoplasm of cervix (07/07/16) History of squamous cell carcinoma (07/07/16) Depression (07/07/16) Acquired hypothyroidism (07/24/16) Chronic pain syndrome (02/11/17) Anxiety Surgical History Status post knee surgery History of cardiac radiofrequency ablation (RFA) Status post hysterectomy Social History household members: significant other and family Smoking Status: Current every day smoker alcohol intake: former substance use type: heroin and IV drugs Discharge Plan Discharge Plan Patient Disposition: Home Provider Discharge Comment: You were admitted to the hospital with flu and possible bacterial pneumonia. Continue prednisone and antibiotics at home, please finish both prescriptions even if feeling better to complete full course of treatment. Albuterol inhaler and nebulizer (with machine) was also sent to [facility]. Please follow up with primary care to discuss ongoing inhaler use within the next few weeks after discharge. Discharge orders & Medications Prescriptions: New oseltamivir [Tamiflu] 75 mg Capsule 75 mg PO BID 2 Days Qty: 4 0RF amoxicillin-pot clavulanate 875-125 mg tablet 1 tab PO BID 3 Days Qty: 6 0RF prednisone 20 mg tablet 40 mg PO DAILY 4 Days Qty: 8 0RF (DME) nebulizer and compressor Device See Rx Instructions .Route Qty: 1 0RF Rx Instructions: One nebulizer and compressor albuterol sulfate 2.5 mg /3 mL (0.083 %) solution for nebulization 2.5 mg inhalation Q4-6H PRN (Reason: shortness of breath or wheezing) 30 Days Qty: 90 0RF albuterol sulfate 90 mcg/actuation aerosol powdr breath activated 2 inh inhalation Q4-6H PRN (Reason: shortness of breath or wheezing) 30 Days Qty: 1 0RF Continued methadone [Methadone Intensol] 10 mg/mL Concentrate 110 mg PO DAILY Follow up/Referrals: Doctor Jhonny, [Primary Care Provider] - Diet/Activity/Treatments Diet: Diet as Tolerated and Regular Activity: As tolerated no restrictions. Skin/Wound/Dressing Care Report to your healthcare provider any signs of infection, such as:: chills, fever Visit Report/Discharge Packet Stand Alone Forms: Patient Portal/API, Stroke Signs & Symptoms Discharge Data Primary Care Provider: Doctor Jhonny
--- NOTE | 2024-12-15 19:02 | PC.NURSE ---
Addendum entered by Jeniffer Sawyer R.N. 12/15/24 19:17: Pt exited via w/c with [employer] OPERATOR to private vehicle. Original Note: D/c instructions reviewed with pt. Discussed new prescriptions, and reminded pt to finish entire course of antibiotics. IV removed. Pt is currently waiting in room for her ride to arrive.
== END 2024-12-15 19:17 | disposition home or self-care (01) | DRG 140 ==
LOC: ED 22:29 → AC 23:04
PROVIDERS: Emergency Medicine; Internal Medicine; Admitting Provider Internal Medicine; Emergency Provider Student in an Organized Health Care Education/Training Program; Referring Provider Student in an Organized Health Care Education/Training Program; Visit Provider Internal Medicine
DX: J44.1 Chronic obstructive pulmonary disease with (acute) exacerbation (principal); J96.01 Acute respiratory failure with hypoxia; J10.08 Influenza due to other identified influenza virus with other specified pneumonia; J15.9 Unspecified bacterial pneumonia; F17.200 Nicotine dependence, unspecified, uncomplicated; F11.20 Opioid dependence, uncomplicated
CPT/HCPCS: 0241U; 36415; 71045; 71275; 80048; 80053; 83605; 83880; 84484; 85025; 85610; 93005; 94640; 94762; 96365; 96367; 96375; 99285; J0696; J1650; J2919; J3475; J7613; Q9967

== ENCOUNTER 2025-08-20 13:58 | Inpatient (IN) | payer OTHER, SELFPAY ==
[2024-12-12 00:08] VITALS: BMI 43.3
[2025-08-20] VITALS (11 sets, daily range): BP systolic 113–132; BP diastolic 58–69; PULSE 87–99; RESP 17–19; TEMP 36.9; O2SAT 93–97; BMI 45.6
--- NOTE | 2025-08-20 14:37 | DI.RAD.S_ITS ---
PROCEDURE: XR CHEST 1V INDICATIONS: Chest Pain TECHNIQUE: One view of the chest was acquired. COMPARISON: [facility], CR, XR CHEST 1V, 12/13/2024, 13:35. FINDINGS: Surgical changes and devices: None. Lungs and pleura: Lungs are clear. No pleural effusions or pneumothorax. Mediastinum: Mediastinal contours appear normal. Heart size is normal. Bones and chest wall: No suspicious bony lesions. Overlying soft tissues appear unremarkable. IMPRESSION: No focal dense airspace consolidation Approved by: Apryl Ames M.D.,Ph.D. on 08/20/2025 at 15:15
[2025-08-20 15:58] LABS: Add Manual Diff / Slide Review NO; Hematocrit 36.4 % (36-46); Hemoglobin 12.1 g/dL (12.0-16.0); Lymphocytes Absolute Auto 1300 /uL (1100-4500); Mean Corpuscular HGB Conc 33.3 % (30-36); Mean Corpuscular Hemoglobin 26.8 PG (26-34); Mean Corpuscular Volume 80.5 fL (80-100); Platelet Count 370 X10^3/uL (150-400)
[2025-08-20 16:06] LABS: INR 1.1 (0.9-1.3); Prothrombin Time 12.1 SECONDS (9.4-12.5)
[2025-08-20 16:08] LABS: PTT Partial Thromboplastin Tim 30 SECONDS (25.1-36.5)
[2025-08-20 16:10] LABS: Alanine Aminotransferase 22 IU/L (<35); Albumin 3.7 g/dL (3.5-5.0); Albumin Globulin Ratio 0.9 (1.0-2.8); Alkaline Phosphatase 94 U/L (38-126); Blood Urea Nitrogen 15 mg/dL (7-17); Calcium 8.4 mg/dL (8.4-10.2); Carbon Dioxide 27 mmol/L (22-32); Chloride 94 mmol/L (98-107); Creatine Kinase 78 U/L (30-135); Estimated Glomerular Filt Rate > 60 mL/min (>60); Globulin 4.3 g/dL (1.7-4.1); Glucose 126 mg/dL (70-99); HEMOLYSIS 46 (0-50); Lipase 21 U/L (23-300); Magnesium 2.0 mg/dL (1.6-2.3); Potassium 3.4 mmol/L (3.4-5.1); Sodium 131 mmol/L (137-145); Total Protein 8.0 g/dL (6.3-8.2)
--- NOTE | 2025-08-20 16:20 | DI.US.S_ITS ---
PROCEDURE: US PERIPH VENOUS LOW EXTREM BI INDICATIONS: b/l lower ext edema TECHNIQUE: Real-time imaging, as well as color and pulse Doppler interrogation, were performed of the deep veins of both legs from the inguinal ligament to the popliteal fossa, with documentation of the visualized calf veins. COMPARISON: None. FINDINGS: Right: The common femoral, femoral, and popliteal are normally compressible, and free of intraluminal thrombus. The calf veins are poorly evaluated without high-grade thrombus. Color and pulse Doppler demonstrate normal phasic intravascular flow. There is normal augmentation response to distal compression maneuver. Left: The common femoral, femoral, and popliteal are normally compressible, and free of intraluminal thrombus. The calf veins are poorly evaluated without high-grade thrombus. Color and pulse Doppler demonstrate normal phasic intravascular flow. There is normal augmentation response to distal compression maneuver. Other: Prominent inguinal lymph nodes preserved fatty hermelinda. IMPRESSION: No findings of deep venous thrombosis in either lower extremity from the femoral through popliteal veins. The calf veins are poorly evaluated without evidence of high- grade thrombus. Dictated by: Sherwin Warner M.D. on 08/20/2025 at 18:31 Approved by: Sherwin Warner M.D. on 08/20/2025 at 18:35
[2025-08-20 16:21] LABS: NT-proBNP (BNP-Adult 18+) 484 pg/mL (<125); Troponin I < 0.012 ng/mL (0.01-0.034)
--- NOTE | 2025-08-20 16:21 | ED.EXTPRO ---
HPI - Extremity Problem General Chief complaint: Extremity Problem,Nontraumatic Stated complaint: swelling in both legs left leg is worse 2 weeks Time Seen by Provider: 08/20/25 16:04 Source: patient Mode of arrival: Wheelchair History of Present Illness HPI Narrative: This is a 50-year-old white female who presents with increasing swelling of her lower extremities for the past 2 weeks patient is says the swelling is worse on the left than the right and the left is red and warm to touch. Patient denied any trauma any new numbness in the feet he chest pain pressure heaviness in his shortness of breath. Related Data Home Medications ?Medication ?Instructions ?Recorded ?Confirmed methadone 10 mg/mL oral 110 mg PO DAILY 12/12/24 12/12/24 concentrate (Methadone Intensol) albuterol 90 mcg/actuation aerosol 108 mcg inhalation 05/15/25 05/15/25 inhaler albuterol sulfate 2.5 mg/3 mL 2.5 mg inhalation Q6H 05/15/25 05/15/25 (0.083 %) solution for nebulization clonidine HCl 0.1 mg tablet 0.1 mg PO BEDTIME 05/15/25 05/15/25 estradiol 0.0375 mg/24 hr weekly 1 patch transdermal QWEEK 05/15/25 05/15/25 transdermal patch montelukast 10 mg tablet 10 mg PO DAILY 05/15/25 05/15/25 omeprazole 20 mg capsule,delayed 20 mg PO DAILY 05/15/25 05/15/25 release progesterone micronized 100 mg 100 mg PO QAM 05/15/25 05/15/25 capsule topiramate 25 mg capsule,extended 25 mg PO DAILY 05/15/25 05/15/25 release 24 hr Previous Rx's ?Medication ?Instructions ?Recorded nebulizer and compressor #1 ea 12/15/24 albuterol sulfate 90 mcg/actuation 2 inh inhalation Q6H PRN shortness 05/15/25 breath activated powder inhaler of breath or wheezing #3 ea (ProAir RespiClick) fluticasone 500 mcg-salmeterol 50 1 inh inhalation BID #60 ea 05/15/25 mcg/dose blistr powdr for inhalation prednisone 20 mg tablet 40 mg (2 x 20 mg) PO DAILY #10 tabs 05/15/25 tiotropium bromide 18 mcg capsule 1 cap inhalation DAILY #30 caps 05/15/25 with inhalation device Allergies Allergy/AdvReac Type Severity Reaction Status Date / Time adhesive Allergy Unknown Verified 08/20/25 14:28 latex Allergy Unknown Verified 08/20/25 14:28 Sulfa (Sulfonamide Allergy Unknown Verified 08/20/25 14:28 Antibiotics) fentanyl AdvReac Severe Cardiac Verified 08/20/25 14:28 METAL Allergy Unknown Uncoded 08/20/25 14:28 Review of Systems Review of Systems Narrative: GENERAL: Denies chills, fatigue, malaise, fever, sweats. HEENT: Denies sinus pain, ear pain, sore throat, difficulty swallowing, dizziness. RESPIRATORY: Denies dyspnea, cough, wheezing, hemoptysis, sputum. CARDIOVASCULAR: Denies chest pain, palpitations, orthopnea, edema, GASTROINTESTINAL: Denies nausea, vomiting, abdominal pain, diarrhea, constipation, melena. : Denies dysuria, frequency, incontinence, hematuria, urinary retention. MUSCULOSKELETAL: denies weakness, joint pain, or bony pain SKIN: See HPI NEUROLOGIC: Denies weakness, headache, numbness, change in speech, confusion, seizures, incoordination. PSYCHIATRIC: No concerning psychosocial issues. 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 Well-developed patient, in mild distress. HEAD: Atraumatic. Normocephalic. EYES: Pupils equal round and reactive. Extraocular motions intact. No scleral icterus. No injection or drainage. ENT: Nose without bleeding, purulent drainage. Throat without erythema, tonsillar hypertrophy or exudate. Airway patent. NECK: Trachea midline. Non tender CARDIOVASCULAR: Regular rate and rhythm without murmurs, gallops, or rubs. RESPIRATORY: Clear to auscultation. Breath sounds equal bilaterally. No wheezes, rales, or rhonchi. GASTROINTESTINAL: Abdomen soft, non-tender, nondistended. EXTREMITIES: 3+ bilateral pitting edema in the lower extremities BACK: Nontender without deformity or crepitance. No flank tenderness. NEURO: AOx3. SKIN: Skin erythematous and warmth in the left lower extremity Initial Vital Signs Initial Vital Signs: Vital Signs Temperature 98.5 F 08/20/25 14:27 Pulse Rate 99 H 08/20/25 14:27 Respiratory Rate 19 08/20/25 14:27 Blood Pressure 114/67 08/20/25 14:27 Pulse Oximetry 93 08/20/25 14:27 Oxygen Delivery Method Room Air 08/20/25 14:27 Course Orders Ordered: ED Orders 08/20/25 14:37 XR chest 1V Stat EKG-12 Lead Stat 08/20/25 15:48 Complete Blood Count AUTO DIFF Stat Comprehensive Metabolic Panel Stat D Dimer Stat Lipase Stat Magnesium Stat NT-proBNP (BNP-Adult 18+) Stat PTT Partial Thromboplastin Moody Stat Prothrombin Time INR Stat Troponin & CK Cardiac Panel Stat 08/20/25 16:18 Urinalysis and Microscopic Stat EKG-12 Lead Stat 08/20/25 16:20 US periph venous low extrem bi Stat 08/20/25 16:54 Blood Culture Stat Lactate (Lactic Acid) Stat Procalcitonin Stat Vancomycin HCl/Dextrose (Vancomycin) 2,000 mg in 400 mls @ 200 mls/hr IV NOW ONE Stop: 08/20/25 18:59 Discontinued Medications Aspirin (Aspirin 81 Mg Chew Tab) 324 mg PO NOW ONE Stop: 08/20/25 14:38 Piperacillin Sod/Tazobactam (Sod 4.5 gm/ Sodium Chloride) 100 mls @ 200 mls/hr IV STAT ONE Stop: 08/20/25 16:18 Last Admin: 08/20/25 17:13 Dose: 200 mls/hr Documented By: NICHOLAS Vancomycin HCl (Vancomycin Per Pharmacy) 1 request MISC STAT STA Stop: 08/20/25 16:18 Vital Signs Vital signs: Vital Signs - 8 hr 08/20/25 14:27 Temperature 98.5 F Pulse Rate 99 H Respiratory Rate 19 Blood Pressure 114/67 Pulse Oximetry 93 Oxygen Delivery Method Room Air MDM - Extremity (Nontraumatic) Lab Data 08/20/25 15:48 08/20/25 15:48 Labs: Lab Results 08/20/25 08/20/25 08/20/25 Range/Units 15:48 15:48 15:48 WBC 17.0 H (4.5-11.0) X10^3/uL RBC 4.53 (4.0-5.2) X10^6/uL Hgb 12.1 (12.0-16.0) g/dL Hct 36.4 (36-46) % MCV 80.5 (80-100) fL MCH 26.8 (26-34) PG MCHC 33.3 (30-36) % RDW 13.6 (11.6-14.8) % Plt Count 370 (150-400) X10^3/uL Neut % (Auto) 85.0 H (50-75) % Lymph % (Auto) 7.6 L (25-40) % [place] % (Auto) 6.6 (3-14) % Eos % (Auto) 0.3 L (2-4) % Baso % (Auto) 0.5 (0-2) % Neut # (Auto) 62000 H (1386-3772) /uL Lymph # (Auto) 1300 (8328-0858) /uL [place] # (Auto) 1100 H (0-900) /uL Eos # (Auto) 100 (0-450) /uL Baso # (Auto) 100 (0-100) /uL PT 12.1 Cancelled (9.4-12.5) SECONDS INR 1.1 Cancelled (0.9-1.3) APTT 30 (25.1-36.5) SECONDS D-Dimer 6971 H (<500) ng/ml Sodium 131 L (137-145) mmol/L Potassium 3.4 (3.4-5.1) mmol/L Chloride 94 L (98-107) mmol/L Carbon Dioxide 27 (22-32) mmol/L BUN 15 (7-17) mg/dL Creatinine 0.58 (0.52-1.04) mg/dL Estimated GFR > 60 (>60) mL/min BUN/Creatinine Ratio 25.9 H (6-22) Glucose 126 H (70-99) mg/dL Lactate (0.7-2.1) mmol/L Calcium 8.4 (8.4-10.2) mg/dL Magnesium 2.0 (1.6-2.3) mg/dL Total Bilirubin 1.3 (0.2-1.3) mg/dL AST 33 (14-36) IU/L ALT 22 (<35) IU/L Alkaline Phosphatase 94 (38-126) U/L Total Creatine Kinase 78 (30-135) U/L Troponin I < 0.012 (0.01-0.034) ng/mL NT-Pro-B Natriuret Pep 484 H (<125) pg/mL Total Protein 8.0 (6.3-8.2) g/dL Albumin 3.7 (3.5-5.0) g/dL Globulin 4.3 H (1.7-4.1) g/dL Albumin/Globulin Ratio 0.9 L (1.0-2.8) Lipase 21 L (23-300) U/L Procalcitonin (<0.5) ng/mL 08/20/25 Range/Units 16:54 WBC (4.5-11.0) X10^3/uL RBC (4.0-5.2) X10^6/uL Hgb (12.0-16.0) g/dL Hct (36-46) % MCV (80-100) fL MCH (26-34) PG MCHC (30-36) % RDW (11.6-14.8) % Plt Count (150-400) X10^3/uL Neut % (Auto) (50-75) % Lymph % (Auto) (25-40) % [place] % (Auto) (3-14) % Eos % (Auto) (2-4) % Baso % (Auto) (0-2) % Neut # (Auto) (1397-2882) /uL Lymph # (Auto) (9298-5680) /uL [place] # (Auto) (0-900) /uL Eos # (Auto) (0-450) /uL Baso # (Auto) (0-100) /uL PT (9.4-12.5) SECONDS INR (0.9-1.3) APTT (25.1-36.5) SECONDS D-Dimer (<500) ng/ml Sodium (137-145) mmol/L Potassium (3.4-5.1) mmol/L Chloride (98-107) mmol/L Carbon Dioxide (22-32) mmol/L BUN (7-17) mg/dL Creatinine (0.52-1.04) mg/dL Estimated GFR (>60) mL/min BUN/Creatinine Ratio (6-22) Glucose (70-99) mg/dL Lactate 1.3 (0.7-2.1) mmol/L Calcium (8.4-10.2) mg/dL Magnesium (1.6-2.3) mg/dL Total Bilirubin (0.2-1.3) mg/dL AST (14-36) IU/L ALT (<35) IU/L Alkaline Phosphatase (38-126) U/L Total Creatine Kinase (30-135) U/L Troponin I (0.01-0.034) ng/mL NT-Pro-B Natriuret Pep (<125) pg/mL Total Protein (6.3-8.2) g/dL Albumin (3.5-5.0) g/dL Globulin (1.7-4.1) g/dL Albumin/Globulin Ratio (1.0-2.8) Lipase (23-300) U/L Procalcitonin 0.439 (<0.5) ng/mL MDM Narrative Medical decision making narrative: When the patient arrived she was tachycardic but afebrile and normal respiratory rate so she did not trigger the sepsis alert. However when I got [place] [address] this trip the sepsis alert as she obviously has a cellulitis of her left lower extremity. I called the sepsis alert at 16 16. I did not give the patient a full 30 mL/kilogram of crystalloid as there was a history of CHF and has concern with fluid overload and her lactic acid was not above 4. Patient has CBC remarkable white count is 17.0 chemistry was unremarkable 12 lead EKG of the sinus rhythm at 97 beats per minute normal axis no blocks no acute changes troponin was 78 D-dimer was 6971 BNP was 4 8 4 patient had chest x-ray read by the radiologist negative patient had an ultrasound of the left lower extremity which reveal live lymphadenopathy and edema the tech said she thought there maybe a small clot in the veins by her foot. There was no evidence of any DVT in the calf or thigh. Patient did receive IV vancomycin IV Zosyn. As I stated earlier this is obviously a cellulitis that med sepsis criteria so she will need to be admitted for IV antibiotics. I will discuss the case with the hospitalist to admit the patient for further evaluation and treatment. Differential diagnosis DVT arterial occlusion cellulitis sepsis Discharge Plan Departure Patient Disposition: Admitted as Observation Clinical Impression: Cellulitis, Sepsis
--- NOTE | 2025-08-20 17:00 | EKG_ITS ---
[facility] [address] [address] Test Date: 2025-08-20 Pat Name: Amalia Su Department: [facility] Room: Gender: Female [employer]: : 1975 Requested By: Order Number: [id number] Reading MD: Gagan Hendrickson Measurements Intervals [place] Rate: 97 P: 40 [place]: 140 QRS: 6 QRSD: 100 T: 26 QT: 372 QTc: 472 Interpretive Statements Normal sinus rhythm Electronically Signed On 08-20-2025 18:55:24 PST by Gagan Hendrickson
[2025-08-20] MEDS: PIPERACILLIN/TAZO 4.5 GM in SODIUM CHLORIDE 0.9% 100 ML IV (17:13)
[2025-08-20 17:14] LABS: Lactate (Lactic Acid) 1.3 mmol/L (0.7-2.1)
[2025-08-20 17:32] LABS: Procalcitonin 0.439 ng/mL (<0.5)
[2025-08-20] MEDS: ASPIRIN 81 MG CHEW TAB 324 MG PO (18:17)
[2025-08-20] MEDS: VANCOMYCIN PER PHARMACY 1 REQUEST MISC (18:26)
[2025-08-20] MEDS: VANCOMYCIN 2,000 MG/400 ML PIGGYBACK 200 MG IV (19:00)
[2025-08-20] MEDS: BUDESONIDE 0.5 MG/2 ML NEB INH (19:56)
[2025-08-20] MEDS: IPRATROPIUM 0.5 MG/2.5 ML NEB INH (19:56)
[2025-08-20] MEDS: cefTRIAXone 2,000 MG in SODIUM CHLORIDE 0.9% 100 ML 200 MG IV (22:17)
[2025-08-21] VITALS (23 sets, daily range): BP systolic 99–134; BP diastolic 54–76; PULSE 82–98; RESP 16–26; TEMP 36.3; O2SAT 92–97; BMI 45.6
--- NOTE | 2025-08-21 05:53 | PC.NURSE ---
pt urinated in bed, pt moved onto hospital bed and changed into a dry gown and a pure wick placed on pt. pt's legs are red and swollen, pictures taken and placed on chart
--- NOTE | 2025-08-21 06:51 | PM.HP.1 ---
History of Present Illness History of Present Illness Date Patient Seen: 08/20/25 Time Patient Seen: 23:50 Chief complaint: swelling in both legs left leg is worse 2 weeks Narrative: 50-year-old female with past medical history of chronic pain, GERD, asthma, anxiety, depression and migraine presents with swelling of her lower extremities. Per the patient's report, the patient has increased welling and redness in both of her lower extremity over the last 2 weeks. The patient states that the left leg seems to be worse than the right. The patient denies any puncture wounds or trauma to her lower extremity. The patient denies any IV drug use. Otherwise the patient denies any fever, chills, nausea, vomiting, diarrhea, chest pain or shortness of breath. In the emergency room the patient remains hemodynamically stable. Labs shows a WBC of 17 sodium 131 and lactate 1.3. Other labs are relatively benign. The patient was given IV vancomycin and Zosyn. Doppler of the right lower extremity shows no clear DVT. IV fluid was given as well. 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) History of malignant neoplasm of cervix (07/07/16) History of squamous cell carcinoma (07/07/16) Depression (07/07/16) Acquired hypothyroidism (07/24/16) Chronic pain syndrome (02/11/17) Anxiety Surgical History Status post knee surgery History of cardiac radiofrequency ablation (RFA) Status post hysterectomy Social History household members: significant other and family alcohol intake: former substance use type: heroin and IV drugs Meds Home Medications and Allergies Home Medications ?Medication ?Instructions ?Recorded ?Confirmed ?Type methadone 10 mg/mL oral 110 mg PO DAILY 12/12/24 12/12/24 History concentrate (Methadone Intensol) nebulizer and compressor #1 ea 12/15/24 Rx albuterol 90 mcg/actuation aerosol 108 mcg inhalation 05/15/25 05/15/25 History inhaler albuterol sulfate 2.5 mg/3 mL 2.5 mg inhalation Q6H 05/15/25 05/15/25 History (0.083 %) solution for nebulization albuterol sulfate 90 mcg/actuation 2 inh inhalation Q6H PRN shortness 05/15/25 05/15/25 Rx breath activated powder inhaler of breath or wheezing #3 ea (ProAir RespiClick) clonidine HCl 0.1 mg tablet 0.1 mg PO BEDTIME 05/15/25 05/15/25 History estradiol 0.0375 mg/24 hr weekly 1 patch transdermal QWEEK 05/15/25 05/15/25 History transdermal patch fluticasone 500 mcg-salmeterol 50 1 inh inhalation BID #60 ea 05/15/25 05/15/25 Rx mcg/dose blistr powdr for inhalation montelukast 10 mg tablet 10 mg PO DAILY 05/15/25 05/15/25 History omeprazole 20 mg capsule,delayed 20 mg PO DAILY 05/15/25 05/15/25 History release prednisone 20 mg tablet 40 mg (2 x 20 mg) PO DAILY #10 tabs 05/15/25 05/15/25 Rx progesterone micronized 100 mg 100 mg PO QAM 05/15/25 05/15/25 History capsule tiotropium bromide 18 mcg capsule 1 cap inhalation DAILY #30 caps 05/15/25 05/15/25 Rx with inhalation device topiramate 25 mg capsule,extended 25 mg PO DAILY 05/15/25 05/15/25 History release 24 hr Allergies Allergy/AdvReac Type Severity Reaction Status Date / Time adhesive Allergy Unknown Verified 08/20/25 14:28 latex Allergy Unknown Verified 08/20/25 14:28 Sulfa (Sulfonamide Allergy Unknown Verified 08/20/25 14:28 Antibiotics) fentanyl AdvReac Severe Cardiac Verified 08/20/25 14:28 METAL Allergy Unknown Uncoded 08/20/25 14:28 Review of Systems Review of Systems ROS: Yes All systems reviewed with the patient and are negative except as otherwise documented Exam Vital Signs (past 8 hours): - 08/20/25 23:00 08/20/25 23:00 08/20/25 23:14 Pulse Rate 99 H 92 H Respiratory Rate 17 Blood Pressure 113/69 Pulse Oximetry 95 95 Oxygen Delivery Method Room Air 08/20/25 23:30 08/20/25 23:33 08/21/25 00:00 Pulse Rate 96 H 88 Respiratory Rate 17 Blood Pressure 132/68 Pulse Oximetry 95 95 Oxygen Delivery Method Room Air 08/21/25 00:00 08/21/25 00:30 08/21/25 00:30 Pulse Rate 83 Respiratory Rate Blood Pressure 122/71 114/60 Pulse Oximetry 95 Oxygen Delivery Method 08/21/25 01:00 08/21/25 01:00 08/21/25 06:00 Pulse Rate 84 85 Respiratory Rate 18 26 H Blood Pressure 102/59 L 107/56 L Pulse Oximetry 96 95 Oxygen Delivery Method Room Air Room Air Fraction of Inspired Oxygen 21 SaO2/FiO2 Ratio 447 Oxygen Delivery Method Room Air Narrative Exam Narrative: Physical Exam: GENERAL: The patient is not in any acute distressed. Awake and alert. HEENT: Nonicteric sclerae, PERRLA, EOMI. Oropharynx clear. Moist mucous membranes. Conjunctivae appear well perfused. HEART: Regular rate and rhythm without murmurs. No lower extremities edema. LUNGS: Clear to auscultation bilaterally. No wheezing, crackles or rhonchi ABDOMEN: Soft, positive bowel sounds, nontender. SKIN: Erythema seen in LLEs and also some in RLEs. No rash, no excessive bruising, petechiae, or purpura. NEUROLOGIC: AxO x 3. Cranial nerves II-XII intact without motor/sensory deficit. Objective Labs 08/20/25 15:48 08/20/25 15:48 Labs: Laboratory Results - last 24 hr 08/20/25 08/20/25 08/20/25 15:48 15:48 15:48 WBC 17.0 H RBC 4.53 Hgb 12.1 Hct 36.4 MCV 80.5 MCH 26.8 MCHC 33.3 RDW 13.6 Plt Count 370 Neut % (Auto) 85.0 H Lymph % (Auto) 7.6 L [place] % (Auto) 6.6 Eos % (Auto) 0.3 L Baso % (Auto) 0.5 Neut # (Auto) 52229 H Lymph # (Auto) 1300 [place] # (Auto) 1100 H Eos # (Auto) 100 Baso # (Auto) 100 PT 12.1 Cancelled INR 1.1 Cancelled APTT 30 D-Dimer 6971 H Sodium 131 L Potassium 3.4 Chloride 94 L Carbon Dioxide 27 BUN 15 Creatinine 0.58 Estimated GFR > 60 BUN/Creatinine Ratio 25.9 H Glucose 126 H Lactate Calcium 8.4 Magnesium 2.0 Total Bilirubin 1.3 AST 33 ALT 22 Alkaline Phosphatase 94 Total Creatine Kinase 78 Troponin I < 0.012 NT-Pro-B Natriuret Pep 484 H Total Protein 8.0 Albumin 3.7 Globulin 4.3 H Albumin/Globulin Ratio 0.9 L Lipase 21 L Procalcitonin 08/20/25 16:54 WBC RBC Hgb Hct MCV MCH MCHC RDW Plt Count Neut % (Auto) Lymph % (Auto) [place] % (Auto) Eos % (Auto) Baso % (Auto) Neut # (Auto) Lymph # (Auto) [place] # (Auto) Eos # (Auto) Baso # (Auto) PT INR APTT D-Dimer Sodium Potassium Chloride Carbon Dioxide BUN Creatinine Estimated GFR BUN/Creatinine Ratio Glucose Lactate 1.3 Calcium Magnesium Total Bilirubin AST ALT Alkaline Phosphatase Total Creatine Kinase Troponin I NT-Pro-B Natriuret Pep Total Protein Albumin Globulin Albumin/Globulin Ratio Lipase Procalcitonin 0.439 Assessment & Plan Assessment & Plan narrative: Cellulitis of lower extremity. New the patient to medical floor. As inpatient. Note the patient is not septic at this time and hemodynamically stable. Continue IV vancomycin and Zosyn. Continue IV fluid. Elevate lower extremity. No venous Doppler lower extremity showed no clear sign DVT. Leukocytosis. Likely due to above. Lactic acid normal. Treat as above and monitor for now. Asthma resume home medication and inhalers. GERD. Resume home PPI. Chronic pain syndrome. Resume home methadone. DVT prophylaxis Lovenox. CODE STATUS full code. Disposition likely home in 2 days. - As the provider of this telehealth evaluation, requested by the patient's evaluating physician, I attest that I introduced myself to the patient, provided my credentials and determined that telemedicine via a real-time, 2 way interactive audio and video platform is an appropriate and effective means of providing this service. - I reviewed the patient's chart and had a discussion with the member of the patient's treatment team. - The patient and I mutually agreed with continuation of this evaluation via telemedicine. The patient consented for the telemedicine evaluation. - This virtual encounter was taken place from [place] by Dr. David Nelson. The patient was evaluated at [facility]. The encounter was approximately 35 minutes. The nurse was present during the entire time of the encounter and was able to assists with exam/stethoscope. Time-Based Coding :: [TOTAL MINUTES] spent with patient and on the chart (including review of chart, obtaining history, exam, reviewing outside data, placing orders, documenting exam and treatment plan, and counseling patient) on [DATE].
[2025-08-21 07:07] LABS: Add Manual Diff / Slide Review NO; Hematocrit 34.4 % (36-46); Hemoglobin 11.3 g/dL (12.0-16.0); Lymphocytes Absolute Auto 1500 /uL (1100-4500); Mean Corpuscular HGB Conc 32.9 % (30-36); Mean Corpuscular Hemoglobin 26.4 PG (26-34); Mean Corpuscular Volume 80.3 fL (80-100); Platelet Count 390 X10^3/uL (150-400)
[2025-08-21 07:21] LABS: Blood Urea Nitrogen 12 mg/dL (7-17); Calcium 8.2 mg/dL (8.4-10.2); Carbon Dioxide 28 mmol/L (22-32); Chloride 97 mmol/L (98-107); Estimated Glomerular Filt Rate > 60 mL/min (>60); Glucose 126 mg/dL (70-99); HEMOLYSIS < 15 (0-50); Potassium 3.1 mmol/L (3.4-5.1); Sodium 133 mmol/L (137-145)
[2025-08-21] MEDS: PANTOPRAZOLE DR 20 MG TABLET PO (08:24)
[2025-08-21] MEDS: VANCOMYCIN 2,000 MG/400 ML PIGGYBACK 200 MG IV ×2 (09:00→18:52)
[2025-08-21] MEDS: MONTELUKAST 10 MG TABLET PO (09:11)
[2025-08-21] MEDS: IPRATROPIUM 0.5 MG/2.5 ML NEB INH ×3 (09:11→19:28)
[2025-08-21] MEDS: BUDESONIDE 0.5 MG/2 ML NEB INH ×2 (09:11→19:28)
[2025-08-21] MEDS: PROGESTERONE, MICRONIZED 100 MG CAPSULE PO (09:25)
[2025-08-21] MEDS: METHADONE INTENSOL 10 MG/ML ORAL.CONC 110 MG PO (09:46)
--- NOTE | 2025-08-21 09:58 | PC.NURSE ---
Vancomycin running at time of transfer from ED to AC.
[2025-08-21] MEDS: POTASSIUM CHLORIDE 20 MEQ TAB 40 MEQ PO ×2 (12:32→17:10)
[2025-08-21] MEDS: TOPIRAMATE 25 MG TABLET PO ×2 (13:30→13:31)
--- NOTE | 2025-08-21 14:52 | PM.PN.1 ---
Subjective Subjective Date Patient Seen: 08/21/25 Interval history: This is a 50-year-old female with past medical history of chronic pain, GERD, asthma, anxiety, depression and migraine who presents with swelling of her lower extremities. Per the patient's report, the patient has increased welling and redness in both of her lower extremity over the last 2 weeks. She has been living and sleeping in her car. The patient states that the left leg seems to be worse than the right. The patient denies any puncture wounds or trauma to her lower extremity. The patient denies any IV drug use. Otherwise the patient denies any fever, chills, nausea, vomiting, diarrhea, chest pain or shortness of breath. Labs shows a WBC of 17 sodium 131 and lactate 1.3. Other labs are relatively benign. The patient was given IV vancomycin and Zosyn. Doppler of the right lower extremity shows no clear DVT. IV fluid was given as well. A/P: Cellulitis of Left lower extremity. -Continue IV vancomycin and Ceftriaxone -Continue IV fluid. Elevate lower extremity. -Venous Doppler lower extremity showed no clear sign DVT. Leukocytosis. -Likely due to above. Lactic acid normal. Treat as above and monitor for now. Asthma -resume home medication and inhalers. GERD. -Resume home PPI. Chronic pain syndrome. -Resume home methadone. -Topamax for Migraine prevention DVT prophylaxis Lovenox. CODE STATUS full code. Disposition likely home in 2 days. Exam Vital Signs (past 8 hours): - 08/21/25 09:16 08/21/25 09:17 08/21/25 09:30 Pulse Rate 82 85 89 Respiratory Rate 16 Blood Pressure 112/60 Pulse Oximetry 95 96 95 Oxygen Delivery Method Room Air Oxygen Flow Rate 0 Fraction of Inspired Oxygen 21 08/21/25 10:42 Pulse Rate Respiratory Rate Blood Pressure Pulse Oximetry Oxygen Delivery Method Room Air Oxygen Flow Rate Fraction of Inspired Oxygen Fraction of Inspired Oxygen 21 SaO2/FiO2 Ratio 452 Oxygen Delivery Method Room Air Oxygen Flow Rate 0 Narrative Exam Narrative: Alert and oriented x3. Heart is regular rate and rhythm. There is no murmur. Lungs are clear to auscultation bilaterally. There is a large lateral shallow ulcer on the left calf with surrounding redness that involves most of the left leg [id number]. The right calf also has a shallow ulcer in a similar location without any redness. Both lower legs are quite enlarged. Objective Labs 08/21/25 06:25 08/21/25 06:25 Labs: Laboratory Results - last 24 hr 08/20/25 08/20/25 08/20/25 15:48 15:48 15:48 WBC 17.0 H RBC 4.53 Hgb 12.1 Hct 36.4 MCV 80.5 MCH 26.8 MCHC 33.3 RDW 13.6 Plt Count 370 Neut % (Auto) 85.0 H Lymph % (Auto) 7.6 L [place] % (Auto) 6.6 Eos % (Auto) 0.3 L Baso % (Auto) 0.5 Neut # (Auto) 81991 H Lymph # (Auto) 1300 [place] # (Auto) 1100 H Eos # (Auto) 100 Baso # (Auto) 100 PT 12.1 Cancelled INR 1.1 Cancelled APTT 30 D-Dimer 6971 H Sodium 131 L Potassium 3.4 Chloride 94 L Carbon Dioxide 27 BUN 15 Creatinine 0.58 Estimated GFR > 60 BUN/Creatinine Ratio 25.9 H Glucose 126 H Lactate Calcium 8.4 Magnesium 2.0 Total Bilirubin 1.3 AST 33 ALT 22 Alkaline Phosphatase 94 Total Creatine Kinase 78 Troponin I < 0.012 NT-Pro-B Natriuret Pep 484 H Total Protein 8.0 Albumin 3.7 Globulin 4.3 H Albumin/Globulin Ratio 0.9 L Lipase 21 L Procalcitonin 08/20/25 08/21/25 16:54 06:25 WBC 14.3 H RBC 4.29 Hgb 11.3 L Hct 34.4 L MCV 80.3 MCH 26.4 MCHC 32.9 RDW 13.6 Plt Count 390 Neut % (Auto) 78.9 H Lymph % (Auto) 10.2 L [place] % (Auto) 9.7 Eos % (Auto) 0.5 L Baso % (Auto) 0.7 Neut # (Auto) 20137 H Lymph # (Auto) 1500 [place] # (Auto) 1400 H Eos # (Auto) 100 Baso # (Auto) 100 PT INR APTT D-Dimer Sodium 133 L Potassium 3.1 L Chloride 97 L Carbon Dioxide 28 BUN 12 Creatinine 0.65 Estimated GFR > 60 BUN/Creatinine Ratio 18.5 Glucose 126 H Lactate 1.3 Calcium 8.2 L Magnesium Total Bilirubin AST ALT Alkaline Phosphatase Total Creatine Kinase Troponin I NT-Pro-B Natriuret Pep Total Protein Albumin Globulin Albumin/Globulin Ratio Lipase Procalcitonin 0.439 [facility] Medical History (Updated 08/20/25 @ 18:09 by Yordy Wilkinson MD) Heroin abuse Migraine without aura and without status migrainosus, not intractable (01/10/16) Kxkvd-Lqkmojiej-Uirni (WPW) syndrome, 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) History of malignant neoplasm of cervix (07/07/16) History of squamous cell carcinoma (07/07/16) Depression (07/07/16) Acquired hypothyroidism (07/24/16) Chronic pain syndrome (02/11/17) Anxiety Surgical History Status post knee surgery History of cardiac radiofrequency ablation (RFA) Status post hysterectomy Social History household members: significant other and family alcohol intake: former substance use type: heroin and IV drugs Assessment & Plan Time-Based Coding :: [TOTAL MINUTES] spent with patient and on the chart (including review of chart, obtaining history, exam, reviewing outside data, placing orders, documenting exam and treatment plan, and counseling patient) on [DATE]. Quality VTE Deep Vein Thrombosis/Pulmonary Embolism Present on Admission: No
--- NOTE | 2025-08-21 15:39 | PM.CN ---
History of Present Illness Consult details Date Patient Seen: 08/21/25 Time Patient Seen: 15:15 Chief complaint: swelling in both legs left leg is worse 2 weeks Narrative: The patient is a 50-year-old female with depression, anxiety, and migraine headaches who was admitted yesterday with cellulitis of both lower extremities. She reports 2 week history of gradual gradually worsening swelling and erythema. She developed superficial ulcers on lateral aspect of the each lower extremity that have been draining fluid. She does report having fever. She has no prior history of vein disorders. The patient is currently living in her car with her feet in the dependent position. She has been unable to wear any compression. She reports a good appetite and denies having any other recent changes in her overall health. White count was 17 on admission and today is down to 14.3. The patient does smoke cigarettes. She has no prior history of any vein disorders or DVT. Venous ultrasound done on admission was negative for DVT. Meds Home Medications and Allergies Home Medications ?Medication ?Instructions ?Recorded ?Confirmed ?Type methadone 10 mg/mL oral 110 mg PO DAILY 12/12/24 08/21/25 History concentrate (Methadone Intensol) nebulizer and compressor #1 ea 12/15/24 08/21/25 Rx albuterol 90 mcg/actuation aerosol 108 mcg inhalation Q4H SOB 05/15/25 08/21/25 History inhaler albuterol sulfate 2.5 mg/3 mL 2.5 mg inhalation Q6H 05/15/25 08/21/25 History (0.083 %) solution for nebulization albuterol sulfate 90 mcg/actuation 2 inh inhalation Q6H PRN shortness 05/15/25 08/21/25 Rx breath activated powder inhaler of breath or wheezing #3 ea (ProAir RespiClick) clonidine HCl 0.1 mg tablet 0.1 mg PO BEDTIME 05/15/25 08/21/25 History estradiol 0.0375 mg/24 hr weekly 1 patch transdermal QWEEK 05/15/25 08/21/25 History transdermal patch fluticasone 500 mcg-salmeterol 50 1 inh inhalation BID #60 ea 05/15/25 08/21/25 Rx mcg/dose blistr powdr for inhalation montelukast 10 mg tablet 10 mg PO DAILY 05/15/25 08/21/25 History omeprazole 20 mg capsule,delayed 20 mg PO DAILY 05/15/25 08/21/25 History release progesterone micronized 100 mg 100 mg PO QAM 05/15/25 08/21/25 History capsule tiotropium bromide 18 mcg capsule 1 cap inhalation DAILY #30 caps 05/15/25 08/21/25 Rx with inhalation device topiramate 25 mg capsule,extended 25 mg PO DAILY 05/15/25 08/21/25 History release 24 hr Allergies Allergy/AdvReac Type Severity Reaction Status Date / Time adhesive Allergy Unknown Verified 08/20/25 14:28 latex Allergy Unknown Verified 08/20/25 14:28 Sulfa (Sulfonamide Allergy Unknown Verified 08/20/25 14:28 Antibiotics) fentanyl AdvReac Severe Cardiac Verified 08/20/25 14:28 METAL Allergy Unknown Uncoded 08/20/25 14:28 Review of Systems Cardiovascular Comments: No chest pain Respiratory Comments: No shortness of breath Musculoskeletal Comments: Swelling of both lower extremities Integumentary/Breasts Comments: Redness both lower extremities Exam Vital Signs (past 8 hours): - 08/21/25 09:16 08/21/25 09:17 08/21/25 09:30 Pulse Rate 82 85 89 Respiratory Rate 16 Blood Pressure 112/60 Pulse Oximetry 95 96 95 Oxygen Delivery Method Room Air Oxygen Flow Rate 0 Fraction of Inspired Oxygen 21 08/21/25 10:42 08/21/25 15:22 Pulse Rate 88 Respiratory Rate 18 Blood Pressure Pulse Oximetry 96 Oxygen Delivery Method Room Air Oxygen Flow Rate Fraction of Inspired Oxygen Fraction of Inspired Oxygen 21 SaO2/FiO2 Ratio 452 Oxygen Delivery Method Room Air Oxygen Flow Rate 0 Const Other: Well-developed well-nourished female, alert and oriented, no apparent distress Skin Other: Erythema both lower extremities with superficial ulcers and dried drainage on the lateral aspects of both lower extremities Extrem Other: Marked swelling both lower extremities Objective Labs 08/21/25 06:25 08/21/25 06:25 Labs: Laboratory Results - last 24 hr 08/20/25 08/20/25 08/20/25 15:48 15:48 15:48 WBC 17.0 H RBC 4.53 Hgb 12.1 Hct 36.4 MCV 80.5 MCH 26.8 MCHC 33.3 RDW 13.6 Plt Count 370 Neut % (Auto) 85.0 H Lymph % (Auto) 7.6 L [place] % (Auto) 6.6 Eos % (Auto) 0.3 L Baso % (Auto) 0.5 Neut # (Auto) 77846 H Lymph # (Auto) 1300 [place] # (Auto) 1100 H Eos # (Auto) 100 Baso # (Auto) 100 PT 12.1 Cancelled INR 1.1 Cancelled APTT 30 D-Dimer 6971 H Sodium 131 L Potassium 3.4 Chloride 94 L Carbon Dioxide 27 BUN 15 Creatinine 0.58 Estimated GFR > 60 BUN/Creatinine Ratio 25.9 H Glucose 126 H Lactate Calcium 8.4 Magnesium 2.0 Total Bilirubin 1.3 AST 33 ALT 22 Alkaline Phosphatase 94 Total Creatine Kinase 78 Troponin I < 0.012 NT-Pro-B Natriuret Pep 484 H Total Protein 8.0 Albumin 3.7 Globulin 4.3 H Albumin/Globulin Ratio 0.9 L Lipase 21 L Procalcitonin 08/20/25 08/21/25 16:54 06:25 WBC 14.3 H RBC 4.29 Hgb 11.3 L Hct 34.4 L MCV 80.3 MCH 26.4 MCHC 32.9 RDW 13.6 Plt Count 390 Neut % (Auto) 78.9 H Lymph % (Auto) 10.2 L [place] % (Auto) 9.7 Eos % (Auto) 0.5 L Baso % (Auto) 0.7 Neut # (Auto) 10028 H Lymph # (Auto) 1500 [place] # (Auto) 1400 H Eos # (Auto) 100 Baso # (Auto) 100 PT INR APTT D-Dimer Sodium 133 L Potassium 3.1 L Chloride 97 L Carbon Dioxide 28 BUN 12 Creatinine 0.65 Estimated GFR > 60 BUN/Creatinine Ratio 18.5 Glucose 126 H Lactate 1.3 Calcium 8.2 L Magnesium Total Bilirubin AST ALT Alkaline Phosphatase Total Creatine Kinase Troponin I NT-Pro-B Natriuret Pep Total Protein Albumin Globulin Albumin/Globulin Ratio Lipase Procalcitonin 0.439 [facility] Medical History (Updated 08/21/25 @ 15:45 by Jay Norman MD) Heroin abuse Migraine without aura and without status migrainosus, not intractable (01/10/16) Wookm-Mhxvkydsz-Oeogr (WPW) syndrome, 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) History of malignant neoplasm of cervix (07/07/16) History of squamous cell carcinoma (07/07/16) Depression (07/07/16) Acquired hypothyroidism (07/24/16) Chronic pain syndrome (02/11/17) Anxiety Surgical History Status post knee surgery History of cardiac radiofrequency ablation (RFA) Status post hysterectomy Social History household members: significant other and family Tobacco & Substance Use alcohol intake: former substance use type: heroin and IV drugs Assessment & Plan Assessment and plan (1) Cellulitis: Status: Acute (2) Non-pressure chronic ulcer of other part of right lower leg limited to breakdown of skin: Status: Acute (3) Non-pressure chronic ulcer of other part of left lower leg limited to breakdown of skin: Status: Acute Assessment & Plan narrative: The patient has cellulitis of both lower extremities with superficial ulcers and dried drainage. Swelling is aggravated by sleeping in a car and being unable to elevate legs. Recommend daily dressing changes with Iodoflex and Tubigrip compression, keep both legs elevated, follow up at wound center after discharge for further evaluation and treatment. Time-Based Coding :: [45 MINUTES] spent with patient and on the chart (including review of chart, obtaining history, exam, reviewing outside data, placing orders, documenting exam and treatment plan, and counseling patient) on [08/21/25].
[2025-08-21] MEDS: cefTRIAXone 2,000 MG in SODIUM CHLORIDE 0.9% 100 ML 200 MG IV (21:00)
[2025-08-22] MEDS: VANCOMYCIN TROUGH 1 REQUEST MISC (06:30)
[2025-08-22] MEDS: PANTOPRAZOLE DR 20 MG TABLET PO (06:53)
[2025-08-22 07:27] LABS: Add Manual Diff / Slide Review NO; Hematocrit 32.9 % (36-46); Hemoglobin 10.8 g/dL (12.0-16.0); Lymphocytes Absolute Auto 1800 /uL (1100-4500); Mean Corpuscular HGB Conc 33.0 % (30-36); Mean Corpuscular Hemoglobin 26.7 PG (26-34); Mean Corpuscular Volume 80.9 fL (80-100); Platelet Count 435 X10^3/uL (150-400)
[2025-08-22 07:33] VITALS: BP 119/73; PULSE 83; RESP 20; TEMP 35.6; O2SAT 93
[2025-08-22 07:40] LABS: Blood Urea Nitrogen 14 mg/dL (7-17); Calcium 8.2 mg/dL (8.4-10.2); Carbon Dioxide 28 mmol/L (22-32); Chloride 99 mmol/L (98-107); Estimated Glomerular Filt Rate > 60 mL/min (>60); Glucose 113 mg/dL (70-99); HEMOLYSIS < 15 (0-50); Potassium 3.7 mmol/L (3.4-5.1); Sodium 135 mmol/L (137-145)
--- NOTE | 2025-08-22 07:46 | P.PN_ITS ---
Subjective Subjective Interval history: Interval history: This is a 50-year-old female with past medical history of chronic pain, GERD, asthma, anxiety, depression and migraine who presents with swelling of her lower extremities. Per the patient's report, the patient has increased welling and redness in both of her lower extremity over the last 2 weeks. She has been living and sleeping in her car. The patient states that the left leg seems to be worse than the right. The patient denies any puncture wounds or trauma to her lower extremity. The patient denies any IV drug use. Otherwise the patient denies any fever, chills, nausea, vomiting, diarrhea, chest pain or shortness of breath. Labs shows a WBC of 17 sodium 131 and lactate 1.3. Other labs are relatively benign. The patient was given IV vancomycin and Zosyn. Doppler of the right lower extremity shows no clear DVT. IV fluid was given as well. S: She feels as though she was improving, the left leg is still quite red and tender. She denies any dyspnea, nausea, or abdominal pain. O: T 96?, BP 119/73, pulse 83, respiration 20, SpO2 93% 0 L. NAD, alert and oriented. Fluent speech. Lungs are clear, normal rate and effort. Heart is regular, no murmur gallop or rub. Abdomen is soft, non distended. Extremities are both edematous in the left leg is very red from the lower extremity up through the lateral thigh. The mid lower leg is wrapped. A/P: 1. Severe cellulitis of Left lower extremity. Slwo improvement. No H/O MRSA. -Continue IV vancomycin and Ceftriaxone -Continue IV fluid. Elevate lower extremity. -Venous Doppler lower extremity showed no clear sign DVT. -Nares screen. 2. Leukocytosis. 12.7 today. -Likely due to above. Lactic acid normal. Treat as above and monitor for now. 3. Asthma, stable. -resume home medication and inhalers. 4. GERD, stable. -Resume home PPI. 5. Chronic pain syndrome, stable. -Resume home methadone. -Topamax for Migraine prevention PLAN: -Nares MRSA screen. -leg elevation -continue current antibiotics. He is a least 1 more night of IV antibiotics. DVT prophylaxis Lovenox. CODE STATUS full code. Disposition likely home in 2 days. Exam Vital Signs (past 8 hours): - 08/22/25 07:33 Temperature 96.0 F L Pulse Rate 83 Respiratory Rate 20 Blood Pressure 119/73 Pulse Oximetry 93 Oxygen Flow Rate 0 Fraction of Inspired Oxygen 21 SaO2/FiO2 Ratio 452 Oxygen Delivery Method Room Air Oxygen Flow Rate 0 Objective Labs 08/22/25 06:40 08/22/25 06:40 Labs: Laboratory Results - last 24 hr 08/22/25 06:40 WBC 12.7 H RBC 4.07 Hgb 10.8 L Hct 32.9 L MCV 80.9 MCH 26.7 MCHC 33.0 RDW 14.1 Plt Count 435 H Neut % (Auto) 72.5 Lymph % (Auto) 14.2 L [place] % (Auto) 11.1 Eos % (Auto) 1.4 L Baso % (Auto) 0.8 Neut # (Auto) 9200 H Lymph # (Auto) 1800 [place] # (Auto) 1400 H Eos # (Auto) 200 Baso # (Auto) 100 Sodium 135 L Potassium 3.7 Chloride 99 Carbon Dioxide 28 BUN 14 Creatinine 0.67 Estimated GFR > 60 BUN/Creatinine Ratio 20.9 Glucose 113 H Calcium 8.2 L [facility] Medical History (Updated 08/21/25 @ 15:45 by Jay Norman MD) Heroin abuse Migraine without aura and without status migrainosus, not intractable (01/10/16) Ujali-Andoyumyy-Pttxg (WPW) syndrome, 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) History of malignant neoplasm of cervix (07/07/16) History of squamous cell carcinoma (07/07/16) Depression (07/07/16) Acquired hypothyroidism (07/24/16) Chronic pain syndrome (02/11/17) Anxiety Surgical History Status post knee surgery History of cardiac radiofrequency ablation (RFA) Status post hysterectomy Social History household members: significant other and family alcohol intake: former substance use type: heroin and IV drugs Assessment & Plan Time-Based Coding :: [TOTAL MINUTES] spent with patient and on the chart (including review of chart, obtaining history, exam, reviewing outside data, placing orders, documenting exam and treatment plan, and counseling patient) on [DATE]. Quality VTE Deep Vein Thrombosis/Pulmonary Embolism Present on Admission: No
[2025-08-22] MEDS: IPRATROPIUM 0.5 MG/2.5 ML NEB INH ×3 (08:03→20:38)
[2025-08-22] MEDS: BUDESONIDE 0.5 MG/2 ML NEB INH ×2 (08:03→20:37)
[2025-08-22 08:42] VITALS: PULSE 94; RESP 16; O2SAT 97
[2025-08-22] MEDS: MONTELUKAST 10 MG TABLET PO (08:52)
[2025-08-22] MEDS: TOPIRAMATE 25 MG TABLET PO (08:52)
[2025-08-22] MEDS: VANCOMYCIN 2,000 MG/400 ML PIGGYBACK 200 MG IV ×2 (08:52→19:13)
[2025-08-22] MEDS: INFLUENZA VACCINE 0.5 ML SYRINGE IM (10:22)
[2025-08-22] MEDS: PROGESTERONE, MICRONIZED 100 MG CAPSULE PO (10:46)
[2025-08-22] MEDS: METHADONE INTENSOL 10 MG/ML ORAL.CONC 110 MG PO (10:46)
[2025-08-22 10:52] LABS: MRSA (Nasal) PCR DETECTED (Not Detect)
--- NOTE | 2025-08-22 12:44 | DIET.CONS ---
Dietary Consultation Note Admission Date: 08/20/2025 18:24 Assessment: 50 y F admitted for cellulitis. Dietitian consulted for left leg wound. EMR reviewed. Pt with adequate PO intakes. DFM reviewed for meal composition and protein intake. Pt with non-pressure ulcers. No weight loss seen in chart. Ht: 172.72 cm Wt: 136.078 kg BMI: 45.6 UBW: 129 kg 12/11/24, 136 kg on 05/2025 Last BM: 08/20/25 (08/21/25 10:15) MNA: 9 Viral Score: 16 Diet: 08/21/25 Breakfast General (Regular) Diet Diet Modifications: Nutrition Percent Meal Consumed 75% 08/21/25 18:00 Percent Meal Consumed 100% 08/21/25 14:00 Labs: RBC 4.07 X10^6/uL (4.0-5.2) 08/22/25 06:40 Hgb 10.8 g/dL (12.0-16.0) L 08/22/25 06:40 Hct 32.9 % (36-46) L 08/22/25 06:40 Creatinine 0.67 mg/dL (0.52-1.04) 08/22/25 06:40 Lactate 1.3 mmol/L (0.7-2.1) 08/20/25 16:54 NT-Pro-B Natriuret Pep 484 pg/mL (<125) H 08/20/25 15:48 Monitoring/Evaluations: continue monitoring for adequate protein intake in meals and PO intakes 75-100% Electronically Signed by: Theodora Galindo 08/22/25 12:44 Clinical Dietitian [address] [address]
[2025-08-22 15:02] VITALS: PULSE 95; RESP 18
[2025-08-22] MEDS: ENOXAPARIN 40 MG/0.4 ML SYRINGE SUBCUT (19:13)
[2025-08-22 20:19] VITALS: BP 113/70; PULSE 89; RESP 18; TEMP 35.8; O2SAT 92
[2025-08-22 20:42] VITALS: PULSE 95; RESP 18; O2SAT 97
[2025-08-22] MEDS: cefTRIAXone 2,000 MG in SODIUM CHLORIDE 0.9% 100 ML 200 MG IV (21:48)
[2025-08-22 21:51] VITALS: BP 109/66; PULSE 86
--- NOTE | 2025-08-23 05:04 | PC.NURSE ---
Pt is A&O x4. VS- BP 125/72, P 83 AT 21:00. Dr Nunn informed, ordered to hold Metoprolol 5mg IV. At 04:00 BP 139/48, P 85. Discussed with Nurse Zazueta in ICU, suggested to keep holding as per Dr's orders. NPO- NGT in place, draining small amounts of brown fluid, on intermittent suction. Abdomen is soft, non tender and less distended than yesterday.On TELE - NSR. K+ IS 3.2. Surgical approach today for L Inguinal Hernia repair.
[2025-08-23] MEDS: PANTOPRAZOLE DR 20 MG TABLET PO (06:17)
[2025-08-23] MEDS: VANCOMYCIN 2,000 MG/400 ML PIGGYBACK 200 MG IV ×2 (06:42→18:29)
[2025-08-23 07:39] LABS: Add Manual Diff / Slide Review NO; Hematocrit 31.1 % (36-46); Hemoglobin 10.3 g/dL (12.0-16.0); Lymphocytes Absolute Auto 2100 /uL (1100-4500); Mean Corpuscular HGB Conc 33.2 % (30-36); Mean Corpuscular Hemoglobin 26.9 PG (26-34); Mean Corpuscular Volume 81.0 fL (80-100); Platelet Count 545 X10^3/uL (150-400)
[2025-08-23 07:48] LABS: Blood Urea Nitrogen 15 mg/dL (7-17); Calcium 8.0 mg/dL (8.4-10.2); Carbon Dioxide 28 mmol/L (22-32); Chloride 100 mmol/L (98-107); Estimated Glomerular Filt Rate > 60 mL/min (>60); Glucose 112 mg/dL (70-99); HEMOLYSIS < 15 (0-50); Potassium 3.9 mmol/L (3.4-5.1); Sodium 134 mmol/L (137-145)
[2025-08-23 08:00] VITALS: BP 99/46; PULSE 66; RESP 17; TEMP 35.9; O2SAT 96
[2025-08-23] MEDS: ENOXAPARIN 40 MG/0.4 ML SYRINGE SUBCUT ×2 (09:01→21:17)
[2025-08-23] MEDS: PROGESTERONE, MICRONIZED 100 MG CAPSULE PO (09:01)
[2025-08-23] MEDS: MONTELUKAST 10 MG TABLET PO (09:01)
[2025-08-23] MEDS: METHADONE INTENSOL 10 MG/ML ORAL.CONC 110 MG PO (09:01)
--- NOTE | 2025-08-23 09:18 | P.PN_ITS ---
Subjective Subjective Date Patient Seen: 08/23/25 Interval history: This is a 50-year-old female with past medical history of chronic pain, GERD, asthma, anxiety, depression and migraine who presents with swelling of her lower extremities. Per the patient's report, the patient has increased welling and redness in both of her lower extremity over the last 2 weeks. She has been living and sleeping in her car. The patient states that the left leg seems to be worse than the right. The patient denies any puncture wounds or trauma to her lower extremity. The patient denies any IV drug use. Otherwise the patient denies any fever, chills, nausea, vomiting, diarrhea, chest pain or shortness of breath. Labs shows a WBC of 17 sodium 131 and lactate 1.3. Other labs are relatively benign. The patient was given IV vancomycin and Zosyn. Doppler of the right lower extremity shows no clear DVT. IV fluid was given as well. 08/22: She feels as though she was improving, the left leg is still quite red and tender. She denies any dyspnea, nausea, or abdominal pain. 08/23: No visible change in distribution of left leg redness or redness of color. She has no pain. The nasal MRSA swab was positive. She continues on vancomycin and ceftriaxone. NAD, alert and oriented. Fluent speech. Lungs are clear, normal rate and effort. Heart is regular, no murmur gallop or rub. Abdomen is soft, non distended. Extremities are both edematous in the left leg is very red from the lower extremity up through the lateral thigh. The mid lower leg is wrapped. Previously marked lines remain accurate. A/P: 1. Severe cellulitis of Left lower extremity. Slow improvement. No H/O MRSA. -Continue IV vancomycin and Ceftriaxone -Continue IV fluid. Elevate lower extremity. -Venous Doppler lower extremity showed no clear sign DVT. -Nares screen positive for MRSA 2. Leukocytosis. 12.7 today. -Likely due to above. Lactic acid normal. Treat as above and monitor for now. 3. Asthma, stable. -resume home medication and inhalers. 4. GERD, stable. -Resume home PPI. 5. Chronic pain syndrome, stable. -Resume home methadone. -Topamax for Migraine prevention PLAN: -Nares MRSA screen. -leg elevation -continue current antibiotics. She will need at least 2 more days of IV antibiotics. DVT prophylaxis Lovenox. CODE STATUS full code. Disposition likely home in 2-3 days. Exam Vital Signs (past 8 hours): Fraction of Inspired Oxygen 21 SaO2/FiO2 Ratio 461 Oxygen Delivery Method Room Air Oxygen Flow Rate 0 Objective Labs 08/23/25 06:30 08/23/25 06:30 Labs: Laboratory Results - last 24 hr 08/22/25 08/23/25 09:30 06:30 WBC 13.1 H RBC 3.85 L Hgb 10.3 L Hct 31.1 L MCV 81.0 MCH 26.9 MCHC 33.2 RDW 14.3 Plt Count 545 H Neut % (Auto) 70.0 Lymph % (Auto) 15.6 L [place] % (Auto) 10.5 Eos % (Auto) 3.2 Baso % (Auto) 0.7 Neut # (Auto) 9200 H Lymph # (Auto) 2100 [place] # (Auto) 1400 H Eos # (Auto) 400 Baso # (Auto) 100 Sodium 134 L Potassium 3.9 Chloride 100 Carbon Dioxide 28 BUN 15 Creatinine 0.64 Estimated GFR > 60 BUN/Creatinine Ratio 23.4 H Glucose 112 H Calcium 8.0 L Nasal Screen MRSA (PCR) Detected H [facility] Medical History (Updated 08/21/25 @ 15:45 by Jay Norman MD) Heroin abuse Migraine without aura and without status migrainosus, not intractable (01/10/16) Qdkay-Evrufxecb-Qatuq (WPW) syndrome, 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) History of malignant neoplasm of cervix (07/07/16) History of squamous cell carcinoma (07/07/16) Depression (07/07/16) Acquired hypothyroidism (07/24/16) Chronic pain syndrome (02/11/17) Anxiety Surgical History Status post knee surgery History of cardiac radiofrequency ablation (RFA) Status post hysterectomy Social History household members: significant other and family alcohol intake: former substance use type: heroin and IV drugs Assessment & Plan Time-Based Coding :: [TOTAL MINUTES] spent with patient and on the chart (including review of chart, obtaining history, exam, reviewing outside data, placing orders, documenting exam and treatment plan, and counseling patient) on [DATE]. Quality VTE Deep Vein Thrombosis/Pulmonary Embolism Present on Admission: No
[2025-08-23 10:40] VITALS: PULSE 78; RESP 20; O2SAT 97
[2025-08-23] MEDS: IPRATROPIUM 0.5 MG/2.5 ML NEB INH ×2 (10:40→19:45)
[2025-08-23 10:49] VITALS: PULSE 86; RESP 20
[2025-08-23] MEDS: BUDESONIDE 0.5 MG/2 ML NEB INH ×2 (10:49→19:45)
--- NOTE | 2025-08-23 15:33 | CM.DANOTE ---
Initial DCP Assessment Visit Note Reviewed EMR and team rounds for pt's medical needs and updates. Went to meet with pt at bedside, however she was taking a shower at the time. Pt is independent at baseline, is homeless, lives with her SO in their car. Her mother lives here in [place] and is a primary support of hers. SO will likely transport at time of d/c. Payor: Neto PCP: Dr. Prasad Pt is a 50 year-old F who presented to the ED last evening with c/o bilateral leg swelling, the L-leg being worse than the R-leg, with redness and heat to the touch. She shared that this has been worsening over the last 2-weeks. Pt also endorses a hx of heroin and IV drug abuse, and however states that is not currently using. Pt is on home methadone at baseline. She was found to be tachycardic in the ED, as well as sepsis-level WBC count. She was started on IV Vancomycin and Zosyn, and was admitted to the floor for further tx and monitoring. DCP will continue to follow and assist with any d/c needs, including possibly IV antibiotics, at d/c. Discharge Planning/Care Management CM Discharge Assessment Start: 08/20/25 19:55 Freq: Status: Active Protocol: Document 08/23/25 15:31 DPL (Rec: 08/23/25 15:33 DPL [id number]) Discharge Planning Assessment Assigned Discharge NIKITA Yung Lawn Mower Operator Provider Dr. Osmar Duque Advance Directives? No History Provided By Medical Record Has Patient been No admitted in last 30 days? Prior Living Homeless Arrangements Comment Pt and SO live in a car. Household Members significant other Type of Drives own vehicle transporation used prior to admit Independent with ADL Yes 's Is patient alert and Yes oriented? Comment N/A Caregiver for No Another Comment Monitoring for final needs. Barriers to No Discharge Discharge Plan Home Referrals Initiated None needed Whiteboard Updated Yes in Patient Room with name and ext. # of Relief Docking Master Review Status In Process Please Provide Date 08/23/25 Initial DC Assessment Was Performed
--- NOTE | 2025-08-23 16:43 | PC.NURSE ---
This RN was asked to go upstairs by primary RN to place IV line. This RN attempted to Left ac without success. This RN attempted a 22g on right forearm that was successful. This RN informed primary RN.
[2025-08-23 19:48] VITALS: PULSE 85; RESP 20; O2SAT 97
[2025-08-23 20:00] VITALS: BP 102/63; PULSE 86; RESP 18; TEMP 36.4; O2SAT 92
[2025-08-23] MEDS: cefTRIAXone 2,000 MG in SODIUM CHLORIDE 0.9% 100 ML 200 MG IV (21:17)
[2025-08-23 21:18] VITALS: BP 102/63; PULSE 85
[2025-08-24] MEDS: VANCOMYCIN TROUGH 1 REQUEST MISC (06:36)
[2025-08-24] MEDS: PANTOPRAZOLE DR 20 MG TABLET PO (06:36)
[2025-08-24] MEDS: VANCOMYCIN 2,000 MG/400 ML PIGGYBACK 200 MG IV ×2 (06:40→19:07)
[2025-08-24 08:39] VITALS: PULSE 82; RESP 18; O2SAT 99
[2025-08-24] MEDS: IPRATROPIUM 0.5 MG/2.5 ML NEB INH (08:39)
[2025-08-24] MEDS: BUDESONIDE 0.5 MG/2 ML NEB INH ×2 (08:39→19:19)
[2025-08-24] MEDS: PROGESTERONE, MICRONIZED 100 MG CAPSULE PO (09:20)
[2025-08-24] MEDS: TOPIRAMATE 25 MG TABLET PO (09:20)
[2025-08-24] MEDS: MONTELUKAST 10 MG TABLET PO (09:20)
[2025-08-24] MEDS: METHADONE INTENSOL 10 MG/ML ORAL.CONC 110 MG PO (09:21)
[2025-08-24] MEDS: ENOXAPARIN 40 MG/0.4 ML SYRINGE SUBCUT ×2 (09:21→21:18)
[2025-08-24 12:00] VITALS: BP 140/70; PULSE 81; RESP 17; TEMP 36.1; O2SAT 98
--- NOTE | 2025-08-24 12:10 | CM.DPC ---
Reviewed EMR and team rounds for pt's medical status and updates. Per Hospitalist, pt will need 1-more day of IV antibiotics before being medically stable for home d/c. She will d/c on oral antibiotics. Monitoring for further evolving needs.
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
--- NOTE | 2025-08-24 15:09 | DI.ECHO.S_ITS ---
[facility] +---------+ [facility] : : [address] : : [place] : : [id number] : : Phone: [phone] Echocardiogram Report + + :Name: ELAINA HEREDIA Study Date: 08/25/2025 Height: 68 in : :[facility] ReadingLocation: Weight: 300 lb : : Gender: Female BSA: 2.4 m2 : :: 1975 Age: 50 yrs BP: 140/70 mmHg: :Reason For Study: CARDIOMYOPATHY : :Ordering Physician: MARCOS, : :TRAVIS Saavedra Performed By: Hola Ocampo : :Referring: TRAVIS RODRÍGUEZ : + + Interpretation Summary The left ventricle is normal in size. Left ventricular systolic function is normal. The ejection fraction is estimated to be 60-65%. There are no obvious focal wall motion abnormalities noted but poor endocardial definition reduces the sensitivity for the detection of such. Normal diastolic function. The right ventricle is not well visualized. The right ventricle grossly appears normal in size with probable normal systolic function. Pulmonary artery pressures cannot be estimated because of the lack of a measurable TR jet velocity. The left atrial size is normal. The aortic root is mildly dilated. Procedure: A two-dimensional transthoracic echocardiogram with color flow and Doppler was performed. The study quality was technically difficult. There is no prior echocardiogram noted for this patient. The patient was in normal sinus rhythm during the exam. Left Ventricle: The left ventricle is normal in size. Left ventricular wall thickness is mildly increased. There is no ventricular septal defect visualized. Left ventricular systolic function is normal. The ejection fraction is estimated to be 60-65%. There are no obvious focal wall motion abnormalities noted but poor endocardial definition reduces the sensitivity for the detection of such. Normal diastolic function. Right Ventricle: The right ventricle is not well visualized. The right ventricle grossly appears normal in size with probable normal systolic function. Atria: The left atrial size is normal. Right atrial size is normal. The interatrial septum is not well visualized. Mitral Valve: The mitral valve is grossly normal. There is trace mitral regurgitation. Aortic Valve: The aortic valve is not well visualized. No aortic regurgitation is present. Tricuspid Valve: The tricuspid valve is not well visualized, but is grossly normal. No tricuspid regurgitation. Pulmonary artery pressures cannot be estimated because of the lack of a measurable TR jet velocity. Pulmonic Valve: The pulmonic valve is not well visualized. Great Vessels: The aortic root is mildly dilated. The ascending aorta could not be visualized. The pulmonary is not well visualized. The inferior vena cava was not visualized. Pericardium/ Pleura There is no pericardial effusion. MMode/2D Measurements & Calculations LVIDd: 5.1 cm LVOT diam: 2.0 cm LVIDs: 3.5 cm Ao root diam: 4.0 cm FS: 31.8 % EPSS: 0.65 cm IVSd: 1.1 cm LVPWd: 1.1 cm LV claudio. diameter/BSA (cm/m^2): 2.1 LV sys. diameter/BSA (cm/m^2): 1.4 LA A2 area: 17.7 cm2 RA long axis: 4.0 cm LA A4 area: 22.2 cm2 RA area: 11.2 cm2 LA length (vol): 5.6 cm RA vol: 26.5 ml LA vol: 59.4 ml RA : 10.9 ml/m2 LA vol index: 24.5 ml/m2 TAPSE: 2.6 cm Doppler Measurements & Calculations Ao V2 max: 188.3 cm/sec LVOT Max Bishnu: 113.6 cm/sec Ao V2 mean: 117.8 cm/sec LV V1 max P.2 mmHg Ao max P.2 mmHg LV V1 VTI: 21.0 cm Ao mean P.7 mmHg ESME(I,D): 1.8 cm2 Ao V2 VTI: 35.9 cm ESME(V,D): 1.8 cm2 sev ratio: 0.59 ESME indexed to BSA (cm^2/m^2): 0.72 MV E max bishnu: 94.9 cm/sec PA V2 max: 108.0 cm/sec MV A max bishnu: 74.0 cm/sec PA V2 mean: 79.9 cm/sec MV E/A: 1.3 PA mean P.8 mmHg Med Peak E' Bishnu: 9.1 cm/sec PA pr(Accel): 39.6 mmHg E/E' med: 10.4 Lat Peak E' Bishnu: 10.0 cm/sec E/E' lat: 9.5 E/e' average: 10.0 MV dec time: 0.20 sec SV(LVOT): 62.9 ml Reading Physician:03:47 PM
[2025-08-24 19:19] VITALS: PULSE 85; RESP 18; O2SAT 100
[2025-08-24] MEDS: ALBUTEROL/IPRATROPIUM 3 ML AMPUL INH (19:19)
[2025-08-24] MEDS: cefTRIAXone 2,000 MG in SODIUM CHLORIDE 0.9% 100 ML 200 MG IV (21:32)
--- NOTE | 2025-08-25 04:48 | PC.NURSE ---
Pt refused an US guided IV at this time and wants the IV later. I spoke with Dr Nelson explaining that the patient has had several IVs this stay, with difficulty getting access, a midline order is placed for today.
[2025-08-25] MEDS: PANTOPRAZOLE DR 20 MG TABLET PO (06:10)
--- NOTE | 2025-08-25 08:14 | PC.NURSE ---
Midline IV ordered placed by provider during hothouse worker, pharmacy made aware of patient waiting midline placement to run Vanco, will call pharmacy when vanco is running so they can retime iv medication.
[2025-08-25] MEDS: BUDESONIDE 0.5 MG/2 ML NEB INH ×2 (09:28→19:49)
[2025-08-25] MEDS: ALBUTEROL/IPRATROPIUM 3 ML AMPUL INH ×2 (09:28→19:50)
[2025-08-25 09:29] VITALS: PULSE 79; RESP 16; O2SAT 100
[2025-08-25] MEDS: TOPIRAMATE 25 MG TABLET PO (10:29)
[2025-08-25] MEDS: MONTELUKAST 10 MG TABLET PO (10:29)
[2025-08-25] MEDS: PROGESTERONE, MICRONIZED 100 MG CAPSULE PO (10:30)
[2025-08-25] MEDS: METHADONE INTENSOL 10 MG/ML ORAL.CONC 110 MG PO (10:31)
[2025-08-25] MEDS: ENOXAPARIN 40 MG/0.4 ML SYRINGE SUBCUT ×2 (10:31→21:18)
--- NOTE | 2025-08-25 11:53 | PC.NURSE ---
SLIDE FORMING MACHINE TENDER notifed about midline order at 1100,
--- NOTE | 2025-08-25 12:55 | CM.DPC ---
DCP Cont: Waiting for MD to round today but pt's IV access unsuccessful and PICC/Midline outside agency contacted and they should be bedside this afternoon to get line access for ongoing IV Abx needs. SW met bedside with pt and her Sig Other and explained role and pt confirms she can finally bear a little weight on her feet/legs and swelling has improved some but still red and likely requires more IV Abx before stable for discharge. Pt confirms she has been forcing herself not to use PureWick and to ambulate some in the room and then alternate with elevating her legs. Her and Sig Other confirm that they have been living in pt's vehicle for about a year and have filled out applications for all of the housing lists in [facility] and may end up driving [facility] another [facility] for faster resources. Pt confirms that staying in the vehicle has not helped with her medical conditions but she is attempting to take care of herself. Sig Other assists as needed. Plan: SW to follow for PICC/Midline placement for ongoing IV Abx and to confirm with MD that plan is po abx at d/c as pt's MYRNA hx and current living situation in their vehicle are barriers to IV Abx at d/c. NIKITA Zambrano
[2025-08-25 13:00] VITALS: BP 120/84; PULSE 87; RESP 16; O2SAT 95
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
[2025-08-25] MEDS: VANCOMYCIN 2,000 MG/400 ML PIGGYBACK 200 MG IV (15:03)
[2025-08-25 19:50] VITALS: PULSE 88; RESP 16; O2SAT 99
[2025-08-25 20:00] VITALS: BP 121/67; PULSE 91; RESP 20; TEMP 36.3; O2SAT 94
[2025-08-25] MEDS: cefTRIAXone 2,000 MG in SODIUM CHLORIDE 0.9% 100 ML 200 MG IV (21:18)
[2025-08-25] MEDS: ACETAMINOPHEN 325 MG TABLET 650 MG PO (23:02)
[2025-08-26] MEDS: VANCOMYCIN 2,000 MG/400 ML PIGGYBACK 200 MG IV (03:07)
[2025-08-26] MEDS: PANTOPRAZOLE DR 20 MG TABLET PO (05:08)
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
[2025-08-26 09:26] VITALS: PULSE 79; RESP 18; O2SAT 100
[2025-08-26] MEDS: BUDESONIDE 0.5 MG/2 ML NEB INH (09:26)
[2025-08-26] MEDS: ALBUTEROL/IPRATROPIUM 3 ML AMPUL INH (09:26)
[2025-08-26] MEDS: PROGESTERONE, MICRONIZED 100 MG CAPSULE PO (09:56)
[2025-08-26] MEDS: TOPIRAMATE 25 MG TABLET PO (09:56)
[2025-08-26] MEDS: MONTELUKAST 10 MG TABLET PO (09:56)
[2025-08-26] MEDS: METHADONE INTENSOL 10 MG/ML ORAL.CONC 110 MG PO (09:56)
[2025-08-26] MEDS: ENOXAPARIN 40 MG/0.4 ML SYRINGE SUBCUT (09:56)
[2025-08-26 09:57] VITALS: BP 90/58; PULSE 75; RESP 18; TEMP 35.6; O2SAT 94
[2025-08-26] MEDS: ACETAMINOPHEN 325 MG TABLET 650 MG PO (10:03)
--- NOTE | 2025-08-26 16:33 | PC.NURSE ---
Pt discharged home at 1535, escorted off floor in wheelchair accompanied by hospital staff. IV removed, discharge teaching completed including new medications, worsening symptoms and follow up appointments. Patient left the floor with all belongings.
== END 2025-08-26 15:40 | disposition home or self-care (01) | DRG 383 ==
LOC: ED 18:09 → AC 08-21 07:32
PROVIDERS: Emergency Medicine; Hospitalist; Internal Medicine; Pharmacist Pharmacist Clinician (PhC)/ Clinical Pharmacy Specialist; Admitting Provider Family Medicine; Emergency Provider Emergency Medicine; PCP Nurse Practitioner Family; Referring Provider Emergency Medicine; Visit Provider Family Medicine
DX: L03.116 Cellulitis of left lower limb (principal); L03.115 Cellulitis of right lower limb; J45.909 Unspecified asthma, uncomplicated; K21.9 Gastro-esophageal reflux disease without esophagitis; G89.4 Chronic pain syndrome; F17.210 Nicotine dependence, cigarettes, uncomplicated; L97.821 Non-pressure chronic ulcer of other part of left lower leg limited to breakdown of skin; L97.811 Non-pressure chronic ulcer of other part of right lower leg limited to breakdown of skin; B95.62 Methicillin resistant Staphylococcus aureus infection as the cause of diseases classified elsewhere; I89.0 Lymphedema, not elsewhere classified; I45.6 Pre-excitation syndrome; G43.909 Migraine, unspecified, not intractable, without status migrainosus; Z79.891 Long term (current) use of opiate analgesic; Z59.02 Unsheltered homelessness
CPT/HCPCS: 36415; 71045; 80048; 80053; 80202; 82550; 82962; 83605; 83690; 83735; 83880; 84145; 84484; 85025; 85379; 85610; 85730; 87040; 87797; 90471; 90656; 93005; 93306; 93970; 94640; 96365; 96366; 96367; 96368; 99284; J0696; J1650; J2543; J3375; J7050; Q2038